=== PATIENT | male | born 1945 | race Caucasian/White ===

== ENCOUNTER → 2016-11-28 | Outpatient (CLI) | payer MEDICARE, BC | END | disposition home or self-care (01) | LOC: LABWHC1 10:48 | PROVIDERS: ATTEND Radiology Radiation Oncology | DX: C61 Malignant neoplasm of prostate (principal) | CPT/HCPCS: 36415; 84153 ==

== ENCOUNTER 2017-02-20 10:58 | Inpatient (IN) | payer MEDICARE, BC ==
[2017-02-20] MEDS ORDERED: ACETAMINOPHEN TAB 500 MG TAB PO STA (11:10)
[2017-02-20] MEDS ORDERED: IBUPROFEN IV 600 MG in SODIUM CHLORIDE 0.9% 250 ML IV STA (11:10)
[2017-02-20] MEDS ORDERED: IPRATROPIUM-ALBUTEROL 3 ML NEB INHALATION STA (11:11)
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
[2017-02-20] MEDS: LEVOFLOXACIN 750MG-D5W PMX 750 MG in DEXTROSE/WATER 1 150ML.BAG IVPB STA ×2 (11:20→12:16)
[2017-02-20] MEDS: SODIUM CHLORIDE 0.9% 500 ML IV SCH ×2 (11:21→11:31)
[2017-02-20 11:37] LABS: Basophils # (A) 0.1 k/uL (0-0.2); Basophils % (A) 1 %; CH 32.7; CHCM 33.2; Eosinophils # (A) 0.1 k/uL (0-0.7); Eosinophils % (A) 1 %; HCT 52.6 % (39.0-53.0); HDW 2.57; HGB 17.1 gm/dL (13.0-17.5); Luc # (Auto) 0.17; Luc % (Auto) 2; Lymphocytes # (A) 0.7 k/uL (1.0-4.8); Lymphocytes % (A) 10 %; MCH 32.3 pg (25.0-35.0); MCHC 32.6 g/dL (31.0-37.0); Mean Platelet Volume 7.1; Monocytes # (A) 0.4 k/uL (0-1.0); Monocytes % (A) 6 %; Neutrophils # (A) 5.7 k/uL (1.3-7.7); Neutrophils % (A) 81 %; RBC 5.31 m/uL (4.30-5.90); WBC (Perox) 6.45
[2017-02-20 11:51] LABS: ALT 27 U/L (21-72); AST 28 U/L (17-59); Alkaline Phosphatase 80 U/L (38-126); Anion Gap 12 mmol/L; Blood Urea Nitrogen 25 mg/dL (9-20); Calcium 9.2 mg/dL (8.4-10.2); Carbon Dioxide 30 mmol/L (22-30); Chloride 101 mmol/L (98-107); Glucose 104 mg/dL (74-99); Non-African American GFR(MDRD) >60 (>60 ml/min/1.73 sqM); Potassium 3.8 mmol/L (3.5-5.1); Sodium 143 mmol/L (137-145); Total Bilirubin 1.1 mg/dL (0.2-1.3); Total Protein 7.5 g/dL (6.3-8.2)
[2017-02-20 11:55] LABS: Creatine Kinase 101 U/L (55-170)
[2017-02-20 12:05] LABS: INR 1.1 (<1.1); Prothrombin Time 10.9 sec (9.0-12.0)
--- NOTE | 2017-02-20 12:05 | XR ---
EXAMINATION TYPE: XR chest 2V DATE OF EXAM: 02/20/2017 11:59 AM COMPARISON: 07/24/15 HISTORY: Shortness of breath TECHNIQUE: Frontal and lateral views of the chest are obtained. FINDINGS: Scattered senescent parenchymal changes noted. Hyperinflation compatible with COPD. Patchy density right lower lobe may reflect pneumonia. Correlate clinically. Heart size is stable. Mediastinal structures are stable and grossly unremarkable. No evidence for hilar prominence. Degenerative changes dorsal spine. IMPRESSION: 1. Patchy density right lower lobe may reflect pneumonia. Correlate clinically.
[2017-02-20 12:08] LABS: Creatine Kinase MB 1.8 ng/mL (0.0-2.4); Troponin I <0.012 ng/mL (0.000-0.034)
[2017-02-20] MEDS ORDERED: PNEUMONIA PROTOCOL UTILIZED 1 EACH MISC PO PRN (12:51)
[2017-02-20] MEDS: IPRATROPIUM-ALBUTEROL 3 ML NEB INHALATION PRN (15:48)
[2017-02-20] MEDS ORDERED: SODIUM CHLORIDE 0.65% NASAL SPRAY 44 ML BTL INTRANASAL PRN (15:53)
[2017-02-20] MEDS: INSULIN LISPRO (humaLOG) 300 UNIT/3 ML VIAL SQ SCH ×2 (17:19→22:12)
[2017-02-20 17:22] LABS: Appearance,Urine Clear (Clear); Bilirubin,Urine Negative (Negative); Glucose,Urine (UA) Negative (Negative); Ketones,Urine Trace (Negative); Leukocyte Esterase,Urine Negative (Negative); Nitrite,Urine Negative (Negative); PH, Urine 5.5 (5.0-8.0); Protein,Urine Negative (Negative); Specific Gravity,Urine 1.012 (1.001-1.035); UA Billing (MACRO vs. MICRO) CHEM; Urobilinogen,Urine <2.0 mg/dL (<2.0)
[2017-02-20] MEDS: ENOXAPARIN 40 MG/0.4 ML SYRINGE SQ SCH (17:51)
[2017-02-20] MEDS: methylPREDNISolone SOD SUCCI 40 MG/ML 1 ML VIAL IV SCH ×2 (17:53→23:08)
[2017-02-20] MEDS ORDERED: methylPREDNISolone SOD SUCCI 125 MG/2 ML VIAL IV SCH (18:00)
[2017-02-20 21:00] LABS: Glucose,Whole Blood 126 mg/dL (75-99)
[2017-02-20 21:01] LABS: Hemoglobin A1C 5.8 % (4.2-6.1)
[2017-02-20] MEDS: BUDESONIDE 1 MG/2 ML NEBU INHALATION SCH (21:48)
[2017-02-20] MEDS: IPRATROPIUM-ALBUTEROL 3 ML NEB INHALATION SCH ×2 (21:48→21:49)
[2017-02-20] MEDS: LORATADINE-PSEUDOEPH 5-120 MG 1 EACH TAB.ER.12H PO SCH (22:11)
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
[2017-02-20] MEDS: ALPRAZolam 0.25 MG TAB PO PRN (22:50)
[2017-02-21] MEDS: IPRATROPIUM-ALBUTEROL 3 ML NEB INHALATION SCH ×7 (02:06→23:27)
[2017-02-21] MEDS: BUDESONIDE 1 MG/2 ML NEBU INHALATION SCH ×2 (07:25→19:06)
[2017-02-21 07:29] LABS: Glucose,Whole Blood 124 mg/dL (75-99)
--- NOTE | 2017-02-21 08:13 | XR ---
EXAMINATION TYPE: XR chest 2V DATE OF EXAM: 02/21/2017 7:14 AM COMPARISON: 02/20/2017 HISTORY: 71-year-old male follow-up pneumonia TECHNIQUE: Frontal and lateral views FINDINGS: Heart is normal size. Elongation/ectasia of the thoracic aorta. Upper lung lucencies with hyperinflat ion and increased retrosternal clear space. There is some patchy posterior basilar opacity on the lat eral view with improving aeration at the right base on the frontal view. No pleural effusion. IMPRESSION: COPD with prominent emphysematous change. There is some persistent patchy atelectasis or mild infiltr ate at the posterior base on the lateral view. Improving aeration at the right base on the frontal vi ew.
[2017-02-21] MEDS: ENOXAPARIN 40 MG/0.4 ML SYRINGE SQ SCH (08:30)
[2017-02-21] MEDS: LORATADINE-PSEUDOEPH 5-120 MG 1 EACH TAB.ER.12H PO SCH ×2 (08:30→22:13)
[2017-02-21] MEDS: INSULIN LISPRO (humaLOG) 300 UNIT/3 ML VIAL SQ SCH ×4 (08:30→22:13)
[2017-02-21] MEDS: methylPREDNISolone SOD SUCCI 40 MG/ML 1 ML VIAL IV SCH (08:30)
[2017-02-21] MEDS: MONTELUKAST 10 MG TAB PO SCH (08:30)
[2017-02-21] MEDS: ALPRAZolam 0.25 MG TAB PO PRN ×2 (08:53→22:17)
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
[2017-02-21 11:28] LABS: Glucose,Whole Blood 105 mg/dL (75-99)
[2017-02-21] MEDS ORDERED: LEVOFLOXACIN 750MG-D5W PMX 750 MG in DEXTROSE/WATER 1 150ML.BAG IVPB SCH (12:00)
[2017-02-21] MEDS: methylPREDNISolone SOD SUCCI 125 MG/2 ML VIAL IV SCH ×3 (12:39→23:53)
[2017-02-21 17:13] LABS: Glucose,Whole Blood 139 mg/dL (75-99)
[2017-02-21] MEDS: FORMOTEROL FUMARATE 20 MCG/2 ML NEBU INHALATION SCH (19:06)
[2017-02-21 20:34] LABS: Glucose,Whole Blood 164 mg/dL (75-99)
--- NOTE | 2017-02-21 23:36 | PN ---
DATE OF SERVICE: 02/21/2017 PRESENTING COMPLAINT: Shortness of breath. INTERVAL HISTORY: This is a 71-year-old gentleman who had increasing shortness of breath over the previous 4 days, itchiness in the eyes, feeling hot and cold a cough positive for clearing yellow sputum, decreased appetite, tired, rundown, unable to breathe. Presented to primary care provider's office, where he was sent to be seen in the emergency department. Today patient feels much better, awake, alert, able to answer questions. No acute distress noted; however, some difficulty breathing with minimal activity was noted. Review of systems done for constitutional, cardiovascular, gastrointestinal, pulmonary, with relevant findings as above. CURRENT MEDICATIONS: 1. Albuterol. 2. Ipratropium. 3. Xanax. 4. Lovenox. 5. Humalog. 6. Solu-Medrol. 7. Requip. PHYSICAL EXAMINATION: VITAL SIGNS: Temperature 96.4, pulse 95, respiratory rate 18, blood pressure 138/89, oxygen saturation 92% on 2 L nasal cannula. EYES: Pupils equal. Conjunctivae normal. NECK: JVD not raised. Mass not palpable. LUNGS: Diminished bilaterally throughout. Fair airway clearance. Some expiratory wheezing noted. RESPIRATORY: Effort increased with minimal activity. CARDIOVASCULAR: S1, S2 normal. No edema noted. ABDOMEN: Soft, nontender. Liver and spleen not palpable. PSYCHIATRIC: Alert and oriented x3. Mood and affect are normal. INVESTIGATIONS: Chest x-ray dated 02/21/2017 has impression of COPD with prominent emphysematous changes; there is persistent patchy atelectasis or mild infiltrate at the posterior base on the lateral view; improving aeration at the right base on the frontal view. Pulmonology consultation recommends adding formoterol and increasing Solu-Medrol by 60 mg every 6 hours. ASSESSMENT: 1. Right middle lobe pneumonia; suspect Gram-negative organism, present on admission. 2. Acute chronic obstructive pulmonary disease exacerbation in an ex-smoker. 3. Obstructive sleep apnea; uses CPAP machine. 4. Prostate cancer in a [id number] process. 5. Ascending aortic aneurysm 4.2 cm. 6. Chronic restless leg syndrome. 7. Anxiety not otherwise specified. PLAN: Continue nebulized bronchodilators, steroids and antibiotics in the form of Levaquin. Pulmonology's recommendations noted and appropriate changes made to reflect their consultation. Plan of care was discussed with the patient.
[2017-02-22] MEDS: IPRATROPIUM-ALBUTEROL 3 ML NEB INHALATION SCH ×5 (03:42→19:27)
[2017-02-22] MEDS: methylPREDNISolone SOD SUCCI 125 MG/2 ML VIAL IV SCH ×3 (06:13→18:00)
[2017-02-22 07:24] LABS: Glucose,Whole Blood 134 mg/dL (75-99)
--- NOTE | 2017-02-22 07:29 | PN ---
DATE OF SERVICE: 02/21/2017 ATTENDING NOTE: This patient was seen and examined today. I reviewed the note of my nurse practitioner. Cas. I agree with the same except for any changes below. This is a patient admitted with COPD exacerbation, pneumonia. Breathing is getting a bit better. Patient has been up in the hallway, trying to walk, huffing and puffing with attempts to do that. Not moving air very well. Did tolerate some diet. Has oxygen on. On examination, respiratory rate increased. Short of breath at rest with accessory muscles are working. LUNGS: Diminished breath sounds with prolonged expiration, wheezing and poor air entry. ABDOMEN: Soft, nontender. PSYCH: Alert and oriented x3. INVESTIGATIONS: Accu-Cheks are noted. ASSESSMENT: 1. Right middle lobe pneumonia, suspect gram-negative organism. 2. Acute severe chronic obstructive pulmonary disease exacerbation in an ex-smoker, slow to respond. PLAN: Continue medication and treatment plan, antibiotics, nebulized bronchial steroids. Told patient to take it easy. Continue with the same. Patient remains on Solu-Medrol.
[2017-02-22] MEDS: ALPRAZolam 0.25 MG TAB PO PRN ×2 (08:24→21:52)
[2017-02-22] MEDS: ENOXAPARIN 40 MG/0.4 ML SYRINGE SQ SCH (08:24)
[2017-02-22] MEDS: INSULIN LISPRO (humaLOG) 300 UNIT/3 ML VIAL SQ SCH ×4 (08:24→21:52)
[2017-02-22] MEDS: LORATADINE-PSEUDOEPH 5-120 MG 1 EACH TAB.ER.12H PO SCH ×2 (08:24→21:52)
[2017-02-22] MEDS: MONTELUKAST 10 MG TAB PO SCH (08:24)
[2017-02-22] MEDS: FORMOTEROL FUMARATE 20 MCG/2 ML NEBU INHALATION SCH ×2 (08:31→19:24)
[2017-02-22] MEDS: BUDESONIDE 1 MG/2 ML NEBU INHALATION SCH ×2 (08:31→19:24)
[2017-02-22 12:02] LABS: Glucose,Whole Blood 141 mg/dL (75-99)
[2017-02-22] MEDS: LEVOFLOXACIN 750 MG TAB PO SCH (13:52)
--- NOTE | 2017-02-22 13:56 | P.PN ---
Subjective Principal diagnosis: Acute exacerbation of chronic obstructive pulmonary disease This is a very pleasant 71-year-old gentleman who follows with Dr. Webb in our office for severe, oxygen dependent chronic obstructive pulmonary disease. He was admitted again for an acute exacerbation of the same. He is seen today 02/22/2017 in follow-up on the regular medical floor. He is awake and alert in no acute distress. He is improved today as compared to yesterday but not quite back to his baseline. Objective - Vital Signs Vital signs: Vital Signs Temp 97.8 F 02/22/17 07:00 Pulse 96 02/22/17 12:34 Resp 18 02/22/17 07:00 BP 134/85 02/22/17 07:00 Pulse Ox 90 L 02/22/17 07:00 Intake & Output 02/21/17 02/22/17 02/22/17 18:59 06:59 18:59 Other: # Voids 2 2 - Exam GENERAL EXAM: Alert, active, comfortable in no apparent distress. HEAD: Normocephalic. EYES: Normal reaction of pupils, equal size. NOSE: Clear with pink turbinates. THROAT: No erythema or exudates. NECK: No masses, no JVD. CHEST: No chest wall deformity. LUNGS: Equal air entry with no crackles, wheeze, rhonchi or dullness. CVS: S1 and S2 normal with no audible murmurs, regular rhythm. ABDOMEN: No hepatosplenomegaly, normal bowel sounds, no guarding or rigidity. SPINE: No scoliosis or deformity SKIN: No rashes CENTRAL NERVOUS SYSTEM: No focal deficits, tone is normal in all 4 extremities. Extremities. There is no peripheral edema. No clubbing, no cyanosis. Peripheral pulses are intact. - Labs CBC & Chem 7: 02/20/17 11:09 02/20/17 11:09 Labs: Abnormal Lab Results - Last 24 Hours (Table) 02/21/17 02/21/17 02/22/17 Range/Units 17:06 20:32 07:22 POC Glucose (mg/dL) 139 H 164 H 134 H (75-99) mg/dL 02/22/17 Range/Units 12:00 POC Glucose (mg/dL) 141 H (75-99) mg/dL Microbiology - Last 24 Hours (Table) 02/20/17 17:05 Urine Culture - Final Urine,Voided 02/20/17 14:56 Blood Culture - Preliminary Blood No Growth after 24 hours Assessment and Plan Plan: Impression: #1 Acute exacerbation of severe, oxygen dependent chronic obstructive pulmonary disease. #2 Acute on chronic hypoxic respiratory failure secondary to above. #3 Obstructive sleep apnea. #4 History of prostate cancer. #5 History of ascending aortic aneurysm. Plan: The patient was seen and evaluated by Dr. Frost. The patient is still not quite back to his baseline but improved. We'll continue with his current medications. We'll increase his activity as tolerated. We'll continue to follow.
--- NOTE | 2017-02-22 16:53 | PN ---
This is a 71-year-old patient who sees Dr. Webb in the office. He came in with COPD exacerbation complicated by purulent tracheobronchitis and possible bronchopneumonia. The chest x-ray really was not impressive but may have showed an infiltrate posteriorly only on the lateral film. He is feeling a bit better. Less short of breath. Less cough. He is producing some phlegm. No fever. No chills. No chest pain. No nausea, vomiting or diarrhea. The patient is improved. He is wearing oxygen today. He has a history of prostate cancer, sleep apnea and a history of aortic aneurysm. Current vital signs include temperature 97.8, heart rate 88, respiratory rate 18, blood pressure 134/85, mean 101, 3-liter saturation 93%. Appears in no acute distress. HEENT examination is grossly unremarkable. Mucous membranes are moist. No oral lesions. Neck is supple; full range of motion. No adenopathy or thyromegaly. Neck veins are flat. Cardiovascular examination reveals regular rhythm and rate. S1, S2 normal. No S3, S4 or murmur. Lungs reveal coarse rhonchi. Breath sounds are diminished. There is prolongation. His adventitious lung sounds are more pronounced on forced maneuver. ABDOMEN: Soft. Bowel sounds are heard. Extremities are intact. No cyanosis, clubbing or edema. Skin is without rash or lesion. Neurological examination is nonfocal. No new laboratory data to report. X-rays reviewed. Medications were adjusted. ASSESSMENT: 1. Chronic obstructive pulmonary disease exacerbation complicated by purulent tracheobronchitis/bronchopneumonia, although the x-ray is not very impressive. 2. Bibasilar atelectatic changes. 3. Prostate cancer. 4. History of sleep apnea. 5. Aortic aneurysm. PLAN: The patient's medications were adjusted yesterday. We bumped up the steroids to be 60 mg q.6 hours. He is also on Pulmicort 1 mg and formoterol twice a day. Also on albuterol and Atrovent updrafts q.i.d. and p.r.n. as well as Singulair. Will continue to follow. Prognosis is guarded.
[2017-02-22 17:00] LABS: Glucose,Whole Blood 129 mg/dL (75-99)
[2017-02-22 21:28] LABS: Glucose,Whole Blood 137 mg/dL (75-99)
--- NOTE | 2017-02-22 21:49 | PN ---
DATE OF SERVICE: 02/22/2017 PRESENTING COMPLAINT: Shortness of breath. INTERVAL HISTORY: This is a 71-year-old gentleman who had increasing shortness of breath over the previous 4 days, itchiness in his eyes, feeling of hot and cold, and a cough positive for clearing yellow sputum. Patient went to see his primary care provider and was sent directly to the emergency department. Today patient feels somewhat better; still feels it is difficult for him to breathe; "feels tight." No acute distress noted or voiced; however, on minimal exertion patient does have significant shortness of breath. Review of systems done for constitutional, cardiovascular, gastrointestinal, pulmonary, with relevant findings as above. CURRENT MEDICATIONS: 1. Albuterol. 2. Ipratropium. 3. Xanax. 4. Lovenox. 5. Humalog. 6. Solu-Medrol. 7. Requip. PHYSICAL EXAMINATION: VITAL SIGNS: Temperature 97.8, pulse 108, blood pressure 133/89, oxygen saturation 90% on 3 L nasal cannula. GENERAL APPEARANCE: Patient sitting on the bed. Looks very red in the face ( ) on the chest but is calm and looks comfortable wearing his oxygen. No acute distress noted or voiced. EYES: Pupils equal. Conjunctivae normal. NECK: JVD not raised. Mass not palpable. LUNGS: Very tight expiratory wheezing noted. Scattered crackles throughout. RESPIRATORY: Moderate effort. Mildly labored. CARDIOVASCULAR: S1, S2 normal. Trace edema noted to lower extremities. ABDOMEN: Soft, nontender. Liver and spleen not palpable. PSYCHIATRIC: Alert and oriented x3. Mood and affect normal. INVESTIGATIONS: Blood glucose 129. Blood cultures drawn on 02/20/2017 negative for any growth after 48 hours. ASSESSMENT: 1. Right middle lobe pneumonia; suspect Gram-negative organism, present on admission. 2. Acute chronic obstructive pulmonary disease exacerbation in an ex-smoker. 3. Obstructive sleep apnea. He uses CPAP machine. 4. Prostate cancer in a [id number] process. 5. Ascending aortic aneurysm 4.2 cm. 6. Chronic restless leg syndrome. 7. Anxiety not otherwise specified. PLAN: Continue with nebulized bronchodilators, steroids and antibiotics in the form of Levaquin. Pulmonology on consult; appreciate recommendations. Plan of care was discussed with the patient. Patient was seen and examined by nurse practitioner Joann Gressle and all elements of the case were discussed with the attending, Dr. Mc.
[2017-02-22] MEDS: ALBUTEROL NEB (CONC) 2.5 MG/0.5 ML INHALATION SCH (23:32)
[2017-02-22] MEDS: IPRATROPIUM 0.5 MG/2.5 ML NEBU INHALATION SCH (23:32)
[2017-02-23] MEDS ORDERED: ALBUTEROL NEBULIZED 2.5 MG/3 ML INHALATION SCH
[2017-02-23] MEDS: THEOPHYLLINE 24 HOUR 300 MG CAP.ER.24H PO SCH ×2 (00:39→08:31)
[2017-02-23] MEDS: methylPREDNISolone SOD SUCCI 125 MG/2 ML VIAL IV SCH ×3 (00:39→11:56)
[2017-02-23] MEDS: ALBUTEROL NEB (CONC) 2.5 MG/0.5 ML INHALATION SCH ×5 (03:29→19:09)
[2017-02-23] MEDS: IPRATROPIUM 0.5 MG/2.5 ML NEBU INHALATION SCH ×5 (03:29→19:09)
[2017-02-23] MEDS: FORMOTEROL FUMARATE 20 MCG/2 ML NEBU INHALATION SCH ×2 (07:17→19:09)
[2017-02-23] MEDS: BUDESONIDE 1 MG/2 ML NEBU INHALATION SCH ×2 (07:17→19:09)
[2017-02-23 07:32] LABS: Glucose,Whole Blood 130 mg/dL (75-99)
[2017-02-23] MEDS: ENOXAPARIN 40 MG/0.4 ML SYRINGE SQ SCH (08:31)
[2017-02-23] MEDS: INSULIN LISPRO (humaLOG) 300 UNIT/3 ML VIAL SQ SCH ×4 (08:32→21:38)
[2017-02-23] MEDS: MONTELUKAST 10 MG TAB PO SCH (08:32)
--- NOTE | 2017-02-23 08:41 | PN ---
DATE OF SERVICE: 02/22/2017 Attending note: This patient was seen and examined by me earlier today. Patient presents with pneumonia and acute severe chronic obstructive pulmonary disease exacerbation. Still quite a bit short of breath including that at rest and was bringing up some sputum. The patient able to get to the bathroom though. Current medications are reviewed that include nebulized bronchodilators, steroids. On examination, temperature 97.8, pulse 108, respirations 16, blood pressure 189, pulse ox 98% on 3 L. GENERAL APPEARANCE: Sitting up, short of breath at rest. NECK: JVD not raised. Mass not palpable. RESPIRATORY: Effort increased. LUNGS: Diminished breath sounds. Prolonged expiration and wheezing. CARDIOVASCULAR: First and second sounds normal. EXTREMITIES: Muscles are working at rest. INVESTIGATIONS: Accu-Cheks are noted. ASSESSMENT: 1. Right middle lobe pneumonia, suspect gram-negative organism, present on admission, slow to respond. 2. Acute severe chronic obstructive pulmonary disease exacerbation in an ex-smoker, slow to respond. 3. Obstructive sleep apnea, uses CPAP machine. PLAN: Care was discussed with the patient. We will increase patient's albuterol to 5 mg q.4. We will also add theophylline. We will stop patient's Claritin-D and assess to minimize her tachycardia. Telemetry to be monitored. Did discuss with the patient. Follow.
[2017-02-23] MEDS: ALPRAZolam 0.25 MG TAB PO PRN ×2 (08:43→21:32)
[2017-02-23 08:46] LABS: CHCM 33.8; HCT 50.7 % (39.0-53.0); HDW 2.73; MCH 32.8 pg (25.0-35.0); MCHC 33.4 g/dL (31.0-37.0); MCV 98.2 fL (80.0-100.0); Mean Platelet Volume 6.9; RBC 5.17 m/uL (4.30-5.90); RDW 14.1 % (11.5-15.5); WBC 17.6 k/uL (3.8-10.6)
[2017-02-23 08:58] LABS: Anion Gap 12 mmol/L; Blood Urea Nitrogen 22 mg/dL (9-20); Carbon Dioxide 23 mmol/L (22-30); Chloride 104 mmol/L (98-107); Glucose 148 mg/dL (74-99); Non-African American GFR(MDRD) >60 (>60 ml/min/1.73 sqM); Potassium 4.4 mmol/L (3.5-5.1); Sodium 139 mmol/L (137-145)
[2017-02-23] MEDS: LEVOFLOXACIN 750 MG TAB PO SCH (11:56)
[2017-02-23 12:17] LABS: Glucose,Whole Blood 130 mg/dL (75-99)
--- NOTE | 2017-02-23 14:19 | PN ---
DATE OF SERVICE: 02/23/2017 PRESENTING COMPLAINT: Shortness of breath. INTERVAL HISTORY: This is a 71-year-old gentleman who has increasing shortness of breath over the previous 4 days, itchiness in his eye, feeling of hot and cold, positive cough for clearing yellow sputum. Today patient still maintains his breathing feels "better, but still tight". Patient able to cough up a little bit more yellow clear sputum. No acute distress noted and patient does continue to have significant shortness of breath on minimal exertion. Review of systems done for constitutional, cardiovascular, gastrointestinal, pulmonary with relevant findings as above. CURRENT MEDICATIONS: Albuterol, ipratropium, Xanax, Lovenox, Humalog, Solu-Medrol, Requip, theophylline. PHYSICAL EXAMINATION: VITAL SIGNS: Temperature 97.4 pulse 104, respirations 20, blood pressure 120/80, oxygen saturation 95% on 3 liters nasal cannula. GENERAL APPEARANCE: Patient sitting up in bed, awake, alert, no acute distress noted or voiced. EYES: Pupils equal. Conjunctivae normal. NECK: JVD not raised. Mass not palpable. LUNGS: Expiratory wheezing noted bilaterally, scattered rhonchi throughout. Respiratory effort normal. CARDIOVASCULAR: S1, S2 normal. No edema noted. ABDOMEN: Soft, nontender. Liver and spleen not palpable. PSYCHIATRIC: Alert and oriented x3. Mood and affect normal. INVESTIGATIONS: White blood cell count 17.6, hemoglobin 17.0, sodium 139, potassium 4.4, glucose 148. ASSESSMENT: 1. Right middle lobe pneumonia, suspect gram-negative organism, present on admission slow to respond. 2. Acute severe chronic obstructive pulmonary disease exacerbation in an ex-smoker, slow to respond. 3. Obstructive sleep apnea, uses CPAP machine. 4. Prostate cancer in a wait and watch process. 5. Ascending aortic aneurysm 4.2 cm. 6. Chronic restless leg syndrome. 7. Anxiety, not otherwise specified. PLAN: Care plan was discussed with the patient. Albuterol increased to 5 mg q.4 hours. We will add theophylline as well. Continue telemetry monitoring. Patient was seen and examined by nurse practitioner, Joann Cardozo, and all elements of the case discussed with attending, Dr. Mc.
--- NOTE | 2017-02-23 15:35 | PN ---
71-year-old patient who sees Dr. Webb in the office for COPD. He came in with chronic obstructive pulmonary disease exacerbation complicated by purulent tracheobronchitis possible basilar pneumonia, which was really not very impressive and only seen on the lateral. Anyway, the patient is improving. Less short of breath. Less chest congestion. He is coughing up some phlegm. Phlegm is yellow and green. Apparently the patient was placed on clinical research monitor. I do not know why. He also apparently has a drug sheet in front of him describing the drug theophylline. That may not be the best drug since the patient does suffer from chest fluttering and palpitations. I am not sure who prescribed it. Anyway, again, as I mentioned, the patient is slightly improved. Currently his vital signs include a temperature 97.4, heart rate 107, respiratory rate 20, blood pressure 120/80, mean 93, 3 liters saturation 96%. Appears in no acute distress. No respiratory distress. HEENT examination is grossly unremarkable. Mucous membranes are moist. No oral lesions. Neck is supple. Full range of motion. No adenopathy or thyromegaly. Neck veins are flat. Cardiovascular examination reveals tachycardia. It is regular. A few extra systoles. A few premature beats. No murmur. S1, S2 normal. Heart rate about 107 to 110. Lungs reveal coarse inspiratory and expiratory rhonchi and wheezes. Breath sounds are diminished. There is a slight prolongation. Abdomen is soft. Bowel sounds are heard. No mass or tenderness. Extremities reveal no cyanosis, clubbing or edema. Skin is without rash. Neurological examination is brief but nonfocal. Lab data is reviewed. White count 17.6 hemoglobin and hematocrit, and platelet count all normal. Sodium, potassium and chloride, and CO2 all normal. BUN and creatinine 22 and 0.91. No recent x-rays to report. The x-ray on ninth shows evidence of changes of COPD. There is persistent patchy atelectasis or infiltrate at the posterior base on the lateral view only. Medications are reviewed. Microbiology is all negative. ASSESSMENT: 1. Chronic obstructive pulmonary disease exacerbation complicated by likely purulent tracheobronchitis rather than bronchopneumonia. 2. Bibasilar atelectatic changes. 3. Prostate cancer. 4. History of sleep apnea syndrome. 5. Aortic aneurysm. PLAN: The patient is doing well. Hopefully discharge in the morning. No additional recommendations are made. Prognosis is guarded though. He will have follow up with Dr. Webb in the near future.
[2017-02-23 17:01] LABS: Glucose,Whole Blood 122 mg/dL (75-99)
--- NOTE | 2017-02-23 19:15 | PN ---
DATE OF SERVICE: 02/23/2017 ATTENDING NOTE: This patient was seen and examined by me. I have reviewed the note of my nurse practitioner Ms. Cardozo. Any additional changes are as below. This patient was admitted with severe COPD exacerbation and pneumonia. Patient's dose of Ventolin was increased last evening. I also added theophylline. Patient feels a bit better; did bring up a blob of sputum, though still short of breath. Current medications include theophylline 300 mg daily, nebulizers q.4 and IV Solu-Medrol. On examination, temperature 97.4, pulse 107, respiration 20, blood pressure 120/80. Patient is short of breath at rest. LUNGS: Decreased breath sounds. Prolonged expiration and expiratory wheezing. PSYCH: Alert and oriented x3. Accu-Cheks are noted. ASSESSMENT: 1. Right middle lobe pneumonia; suspect Gram-negative organism, present on admission. 2. Acute severe chronic obstructive pulmonary disease exacerbation in an ex-smoker, slow to respond. PLAN: Continue with IV Solu-Medrol; will decrease the dose to 40 q.8. Continue with q.4 nebulizers and theophylline. Expect the patient to be in the hospital for at least 24 hours. Discussed with the patient.
[2017-02-23 21:21] LABS: Glucose,Whole Blood 116 mg/dL (75-99)
[2017-02-23] MEDS: methylPREDNISolone SOD SUCCI 40 MG/ML 1 ML VIAL IV SCH (23:43)
[2017-02-24] MEDS: ALBUTEROL NEB (CONC) 2.5 MG/0.5 ML INHALATION SCH ×7 (00:09→23:16)
[2017-02-24] MEDS: IPRATROPIUM 0.5 MG/2.5 ML NEBU INHALATION SCH ×7 (00:10→23:16)
[2017-02-24] MEDS: BUDESONIDE 1 MG/2 ML NEBU INHALATION SCH ×2 (07:13→20:08)
[2017-02-24] MEDS: FORMOTEROL FUMARATE 20 MCG/2 ML NEBU INHALATION SCH ×2 (07:13→20:08)
[2017-02-24 07:34] LABS: Glucose,Whole Blood 131 mg/dL (75-99)
[2017-02-24] MEDS: ALPRAZolam 0.25 MG TAB PO PRN ×2 (08:56→21:52)
[2017-02-24] MEDS: INSULIN LISPRO (humaLOG) 300 UNIT/3 ML VIAL SQ SCH ×4 (08:56→21:11)
[2017-02-24] MEDS: methylPREDNISolone SOD SUCCI 40 MG/ML 1 ML VIAL IV SCH ×3 (08:56→23:34)
[2017-02-24] MEDS: ENOXAPARIN 40 MG/0.4 ML SYRINGE SQ SCH (08:57)
[2017-02-24] MEDS: THEOPHYLLINE 24 HOUR 300 MG CAP.ER.24H PO SCH (08:57)
[2017-02-24] MEDS: MONTELUKAST 10 MG TAB PO SCH (08:57)
--- NOTE | 2017-02-24 10:44 | PN ---
This is a 71-year-old patient who sees Dr. Webb in our office. Has a history of COPD. Was admitted with COPD exacerbation and possible mild purulent tracheobronchitis versus very mild basilar pneumonia. His overall situation has improved. Feeling less short of breath. It appears that Mr. Guzman really like to stay in the hospital and is not hoping to be discharged any time soon. He seems only to be getting mildly better day by day but his lung sounds are much improved in my opinion. Anyway, the patient does have significant COPD. He has improved since he has been here. He does appear to be less symptomatic. Current vital signs include a temperature which is 96.8, a heart rate which is 88, respiratory rate which is 20, blood pressure 116/77, mean 90, and the 3 L saturation 92%. Appears in no acute distress. No respiratory distress. No audible wheezing. HEENT examination is grossly unremarkable. Mucous membranes are moist. No oral lesions. NECK: Supple. Full range of motion. No adenopathy or thyromegaly. Neck veins are flat. Cardiovascular examination reveals regular rhythm and rate. S1, S2 normal. No S3, S4 or murmur. Lungs reveal a few scattered mild rhonchi. Breath sounds are diminished. No crackles. ABDOMEN: Soft. Bowel sounds are heard. No masses. Extremities are intact. No cyanosis, clubbing or edema. Labs are reviewed. Nothing new to report. Labs from yesterday look pretty good. No new x-rays to report. Microbiology including urine and blood are all negative. From the pulmonary standpoint, he is on Solu-Medrol, theophylline, Singulair, DuoNeb, Levaquin, Pulmicort and Perforomist. ASSESSMENT: 1. Chronic obstructive pulmonary disease exacerbation complicated by primarily purulent tracheobronchitis and doubt significant bronchopneumonia. 2. Basilar atelectatic changes. 3. Prostate cancer. 4. History of sleep apnea syndrome. 5. Aortic aneurysm. PLAN: In my opinion, the patient could be discharged home. No additional recommendations are made. Will continue to follow. Prognosis is guarded.
[2017-02-24] MEDS: LEVOFLOXACIN 750 MG TAB PO SCH (12:19)
[2017-02-24 12:33] LABS: Glucose,Whole Blood 116 mg/dL (75-99)
--- NOTE | 2017-02-24 14:03 | PN ---
DATE OF SERVICE: 02/24/2017 PRESENTING COMPLAINT: Shortness of breath. INTERVAL HISTORY: This is a 71-year-old gentleman who has increasing shortness of breath over the past 4 days, found to have a severe COPD exacerbation and pneumonia. Patient states he feels mildly better today, did bring up several blobs of sputum although continues to be short of breath. No acute distress noted or voiced. However, patient does have significant shortness of breath on minimal exertion. Review of systems done for constitutional, cardiovascular, gastrointestinal, pulmonary, with relevant findings as above. CURRENT MEDICATIONS: Albuterol, ipratropium, Xanax, Lovenox, Humalog, Solu-Medrol, Requip, theophylline. PHYSICAL EXAM: VITAL SIGNS: Temperature 96.8, pulse 92, respiratory rate 20, blood pressure 116/77, oxygen saturation 92% on 3 L. GENERAL APPEARANCE: Patient is sitting on the bedside, getting ready to take a walk with his oxygen tank, in good spirits. Took a moment to show me the blob of sputum he spit up, which was yellow in color. EYES: Pupils equal. Conjunctivae are normal. NECK: JVD not raised. Mass not palpable. LUNGS: Expiratory wheezing noted bilaterally, scattered rhonchi throughout. Respiratory effort normal. CARDIOVASCULAR: S1, S2 normal. No edema noted. ABDOMEN: Soft, nontender. Liver and spleen not palpable. PSYCHIATRIC: Alert and oriented x3. Mood and affect are normal. INVESTIGATIONS: Blood glucose monitoring 131. ASSESSMENT: 1. Right middle lobe pneumonia, suspect gram-negative organism, present on admission, slow to respond. 2. Acute severe chronic obstructive pulmonary disease exacerbation in an ex-smoker, slow to respond. 3. Obstructive sleep apnea, uses CPAP machine. 4. Prostate cancer, a wait and watch process. 5. Ascending aortic aneurysm 4.2 cm. 6. Chronic restless leg syndrome. 7. Anxiety, not otherwise specified. PLAN: Continue with IV Solu-Medrol, will decrease the dose to 40 mg every 8 hours. Continue with q.4 hour nebulizers and theophylline. Patient expected to be in the hospital through at least today 02/24/2017. Patient aware of current plan. Patient seen and examined by nurse practitioner, Joann Cardozo and all elements of the case were discussed with attending, Dr. Mc.
[2017-02-24] MEDS ORDERED: LORATADINE 10 MG TAB PO PRN (15:41)
[2017-02-24 17:12] LABS: Glucose,Whole Blood 99 mg/dL (75-99)
--- NOTE | 2017-02-24 21:01 | PN ---
DATE OF SERVICE: 02/24/2017 ATTENDING NOTE: This patient was seen and examined by me today. I reviewed the note of my nurse practitioner, Ms. Cardozo, and discussed it with her. Patient admitted with COPD exacerbation. He states he feels somewhat better. Still short of breath. Does cough up some sputum. Has been up to the bathroom. Still on oxygen. On examination, lungs have decreased breath sounds, prolonged expiration and wheezing. CARDIOVASCULAR: First and second sounds normal. PSYCH: Patient is anxious. Accu-Cheks are noted. ASSESSMENT: 1. Acute severe chronic obstructive pulmonary disease exacerbation in an ex-smoker, slow to respond. 2. Right lower lobe pneumonia; suspect Gram-negative organism, present on admission. PLAN: Discussed with the patient. Will keep the patient on high dose of nebulized bronchodilators and steroids. I expect the patient to be in the hospital for at least 1 or 2 more days. Patient is aware of the same. Will follow.
[2017-02-24 21:43] LABS: Glucose,Whole Blood 129 mg/dL (75-99)
[2017-02-25] MEDS: ALBUTEROL NEB (CONC) 2.5 MG/0.5 ML INHALATION SCH ×5 (05:13→19:10)
[2017-02-25] MEDS: IPRATROPIUM 0.5 MG/2.5 ML NEBU INHALATION SCH ×5 (05:13→19:10)
[2017-02-25 07:19] LABS: Glucose,Whole Blood 118 mg/dL (75-99)
[2017-02-25] MEDS: INSULIN LISPRO (humaLOG) 300 UNIT/3 ML VIAL SQ SCH ×3 (07:23→16:31)
[2017-02-25] MEDS: methylPREDNISolone SOD SUCCI 40 MG/ML 1 ML VIAL IV SCH ×2 (08:06→15:18)
[2017-02-25] MEDS: THEOPHYLLINE 24 HOUR 300 MG CAP.ER.24H PO SCH (08:07)
[2017-02-25] MEDS: ENOXAPARIN 40 MG/0.4 ML SYRINGE SQ SCH (08:07)
[2017-02-25] MEDS: MONTELUKAST 10 MG TAB PO SCH (08:07)
[2017-02-25] MEDS: FORMOTEROL FUMARATE 20 MCG/2 ML NEBU INHALATION SCH ×2 (08:10→19:10)
[2017-02-25] MEDS: BUDESONIDE 1 MG/2 ML NEBU INHALATION SCH ×2 (08:10→19:10)
[2017-02-25] MEDS: ALPRAZolam 0.25 MG TAB PO PRN (08:11)
[2017-02-25] MEDS ORDERED: OXYMETAZOLINE 0.05% NASL SPRAY 15 ML ONE (10:33)
--- NOTE | 2017-02-25 11:12 | XR ---
EXAMINATION TYPE: XR chest 2V DATE OF EXAM: 02/25/2017 11:01 AM COMPARISON: 02/21/2017 HISTORY: Shortness of breath TECHNIQUE: Frontal and lateral views of the chest are obtained. FINDINGS: Scattered senescent parenchymal changes noted. Hyperinflation compatible with COPD. Stable density posteriorly on the lateral projection may be chronic in nature. Underlying infiltrate is felt to exclude. Heart size is stable. Mediastinal structures are stable and grossly unremarkable. No evidence for hilar prominence. Degenerative changes dorsal spine. IMPRESSION: 1. Stable density posteriorly on the lateral projection may be chronic in nature. Underlying infiltra te is felt to exclude.
[2017-02-25 12:07] LABS: Glucose,Whole Blood 171 mg/dL (75-99)
[2017-02-25] MEDS: LEVOFLOXACIN 750 MG TAB PO SCH (12:42)
[2017-02-25 16:29] LABS: Glucose,Whole Blood 118 mg/dL (75-99)
--- NOTE | 2017-02-25 16:58 | PN ---
71-year-old patient sees Dr. Webb in our office. He has a history of underlying COPD. The patient is doing much better. In my opinion he could be discharged. For some reason, the patient does not really want go home. Anyway his breathing has improved. He is coughing, producing a small amount of phlegm. Much improved chest congestion. Much less shortness of breath. The patient is resting comfortably, lying flat in bed. When I first entered the room, he is actually sleeping. Showing no signs of distress or difficulty. CURRENT VITAL SIGNS: Temperature 97.3, heart rate is 92, respiratory rate 18, blood pressure 135/81, mean 99, at 3 liters saturation is 92%. Appears in no acute distress. No respiratory distress. No audible wheezing. HEENT examination is grossly unremarkable. Mucous membranes are moist. No oral lesions. Neck is supple. Full range of motion. No adenopathy, thyromegaly or neck vein distention. Cardiovascular examination reveals regular rhythm and rate. Heart rate 92. S1, S2 normal. No S3, S4 or murmur. Lungs reveal diminished breath sounds throughout. A few scattered mild rhonchi. No wheezes or crackles. Breath sounds have improved. ABDOMEN: Soft. Bowel sounds are heard. EXTREMITIES: Intact. No cyanosis, clubbing or edema. Skin is without rash. Labs are reviewed. Nothing new to report. No new x-rays to report. Medications are reviewed. ASSESSMENT: 1. Chronic obstructive pulmonary disease exacerbation complicated by purulent tracheobronchitis. Doubt significant pneumonia. Has a minimal infiltrate or atelectasis that was only seen on the lateral projection of the x-ray. 2. Basilar atelectatic changes. 3. Prostate cancer. 4. History of sleep apnea syndrome. 5. Aortic aneurysm. PLAN: The patient is doing well. Medications are appropriate. He will be discharged home on a prednisone burst and taper and a short course of antibiotics. The rest of his medications should include a short acting beta agonist, short-acting muscarinic antagonist, long-acting beta agonist and inhaled corticosteroids. Follow up with Dr. Webb in a week or so.
[2017-02-25] MEDS ORDERED: ALPRAZolam 0.25 MG TAB ONE (21:50)
[2017-02-25 23:06] LABS: Glucose,Whole Blood 123 mg/dL (75-99)
[2017-02-26] MEDS ORDERED: methylPREDNISolone SOD SUCCI 40 MG/ML 1 ML VIAL ONE (00:24)
[2017-02-26] MEDS: ALBUTEROL NEB (CONC) 2.5 MG/0.5 ML INHALATION SCH ×6 (03:09→19:16)
[2017-02-26] MEDS: IPRATROPIUM-ALBUTEROL 3 ML NEB INHALATION PRN (03:09)
[2017-02-26] MEDS: IPRATROPIUM 0.5 MG/2.5 ML NEBU INHALATION SCH ×6 (03:10→19:16)
[2017-02-26] MEDS: ALPRAZolam 0.25 MG TAB PO PRN ×2 (06:45→20:56)
[2017-02-26 07:18] LABS: Anion Gap 8 mmol/L; Blood Urea Nitrogen 25 mg/dL (9-20); Calcium 9.5 mg/dL (8.4-10.2); Carbon Dioxide 29 mmol/L (22-30); Chloride 101 mmol/L (98-107); Glucose 134 mg/dL (74-99); Non-African American GFR(MDRD) >60 (>60 ml/min/1.73 sqM); Potassium 4.8 mmol/L (3.5-5.1); Sodium 138 mmol/L (137-145)
[2017-02-26 07:21] LABS: CH 32.7; CHCM 33.8; HCT 47.4 % (39.0-53.0); HDW 2.68; HGB 15.6 gm/dL (13.0-17.5); MCHC 32.9 g/dL (31.0-37.0); MCV 97.2 fL (80.0-100.0); Mean Platelet Volume 7.3; RBC 4.87 m/uL (4.30-5.90); RDW 13.8 % (11.5-15.5); WBC 12.4 k/uL (3.8-10.6)
--- NOTE | 2017-02-26 07:30 | PN ---
DATE OF SERVICE: 02/25/2017 PRESENTING COMPLAINT: Shortness of breath. INTERVAL HISTORY: This is a 71-year-old gentleman who has increasing shortness of breath over the past 4 days found to have severe COPD exacerbation and pneumonia. Patient states he feels mildly better today. Did bring up multiple blobs of sputum although continues to be short of breath. No acute distress noted or voiced. However, patient does have significant shortness of breath on minimal exertion. Review of systems done for constitutional, cardiovascular, gastrointestinal, pulmonary with relevant findings as above. CURRENT MEDICATIONS: Albuterol, ipratropium, Xanax, Lovenox, Humalog, Solu-Medrol, Requip, theophylline. PHYSICAL EXAMINATION: VITAL SIGNS: Temperature 97.3, pulse 92, respiratory rate 18, blood pressure 135/81, oxygen saturation 90% on 3 liters nasal cannula. GENERAL APPEARANCE: Patient lying in bed. No acute distress noted or voiced. Does complain sinus congestion. Patient also states he is coughing up quite a bit of sputum today. EYES: Pupils equal. Conjunctivae normal. NECK: JVD not raised. Mass not palpable. LUNGS: Coarse throughout bilateral lung calixto. Respiratory effort normal, unlabored. CARDIOVASCULAR: First and second sounds normal. No edema noted. ABDOMEN: Soft, nontender. Liver and spleen not palpable. PSYCHIATRY: Alert and oriented x3. Mood and affect are normal. INVESTIGATIONS: Blood glucose 171. Chest x-ray stable density posteriorly on the lateral projection may be chronic in nature. Underlying infiltrate is felt to exclude. ASSESSMENT: 1. Right middle lobe pneumonia suspect gram-negative organism, present on admission slow to respond. 2. Acute severe chronic obstructive pulmonary disease exacerbation in an ex-smoker, slow to respond. 3. Obstructive sleep apnea, uses CPAP machine. 4. Prostate cancer, wait and watch process. 5. Ascending aortic aneurysm 4.2 cm. 6. Chronic restless leg syndrome. 7. Anxiety, not otherwise specified. PLAN: Discussed plan of care with the patient. Will keep the patient on high dose nebulized bronchodilators and steroids. Expect patient to remain in the hospital at least for 1 to 2 more days. Patient is aware of the same. Patient was seen and examined by nurse practitioner, Joann Cardozo and all elements of the case were discussed with attending, Dr. Mc.
[2017-02-26] MEDS: OXYMETAZOLINE 0.05% NASL SPRAY 15 ML NASAL SCH ×3 (07:33→20:57)
[2017-02-26] MEDS: INSULIN LISPRO (humaLOG) 300 UNIT/3 ML VIAL SQ SCH ×5 (07:33→21:43)
[2017-02-26] MEDS: methylPREDNISolone SOD SUCCI 40 MG/ML 1 ML VIAL IV SCH ×3 (07:33→16:04)
[2017-02-26 07:35] LABS: Glucose,Whole Blood 127 mg/dL (75-99)
[2017-02-26] MEDS: BUDESONIDE 1 MG/2 ML NEBU INHALATION SCH ×2 (07:39→19:16)
[2017-02-26] MEDS: FORMOTEROL FUMARATE 20 MCG/2 ML NEBU INHALATION SCH ×2 (07:39→19:16)
[2017-02-26 07:44] LABS: Creatine Kinase 44 U/L (55-170)
[2017-02-26] MEDS: THEOPHYLLINE 24 HOUR 300 MG CAP.ER.24H PO SCH (07:51)
[2017-02-26] MEDS: ENOXAPARIN 40 MG/0.4 ML SYRINGE SQ SCH (07:51)
[2017-02-26] MEDS: MONTELUKAST 10 MG TAB PO SCH (07:51)
[2017-02-26 07:57] LABS: Troponin I <0.012 ng/mL (0.000-0.034)
[2017-02-26 07:59] LABS: Creatine Kinase MB 3.1 ng/mL (0.0-2.4)
[2017-02-26] MEDS ORDERED: LORATADINE 10 MG TAB PO SCH (09:15)
--- NOTE | 2017-02-26 09:41 | PN ---
DATE OF SERVICE: 02/25/2017 ATTENDING NOTE: This patient was seen and examined by me today. I reviewed the note of my nurse practitioner, Ms. Cardozo and discussed it with her. Patient admitted with COPD exacerbation. Still got some wheezing and cough, bringing up some sputum. On examination, pulse 92, blood pressure 125/87. On exam, lungs decreased breath sounds. Expiratory wheezing. CARDIOVASCULAR: First and second sounds normal. PSYCH: Anxious-appearing. INVESTIGATIONS: Accu-Cheks are noted. ASSESSMENT: Acute chronic obstructive pulmonary disease exacerbation in an ex-smoker with right lobe pneumonia, suspect gram-negative organism. Continue with the same treatment. Sputum has been unremarkable. PLAN: Continued nebulized bronchodilators, steroids, antibiotics. Will give a topical nasal decongestant. Will follow.
[2017-02-26 12:18] LABS: Glucose,Whole Blood 115 mg/dL (75-99)
[2017-02-26] MEDS: LEVOFLOXACIN 750 MG TAB PO SCH (12:20)
[2017-02-26 17:17] LABS: Glucose,Whole Blood 118 mg/dL (75-99)
[2017-02-26 21:51] LABS: Glucose,Whole Blood 173 mg/dL (75-99)
[2017-02-27] MEDS: ALBUTEROL NEB (CONC) 2.5 MG/0.5 ML INHALATION SCH ×7 (02:58→23:24)
[2017-02-27] MEDS: IPRATROPIUM 0.5 MG/2.5 ML NEBU INHALATION SCH ×7 (02:59→23:24)
--- NOTE | 2017-02-27 07:47 | PN ---
A 71-year-old gentleman admitted with a diagnosis of COPD exacerbation. Doing much better. Chest x-ray continues to show a very minimal infiltrate on the lateral view only in the posterior base. He is still complaining of some shortness of breath, some chest congestion, coughing, not producing much phlegm. In my opinion though, much improved. He is moving air well both on inspiration and exhalation. He was admitted Dr. Mc's service. He sees Dr. Webb in the office. Current vital signs are stable. Temperature 97.2, heart rate 82, respiratory rate 20, blood pressure 144/103. His mean arterial pressure is 116 and his saturation on 3 L 96%. He appears in no acute distress. HEENT examination is grossly unremarkable. Mucous membranes are moist. No oral lesions. NECK: Supple. Full range of motion. No adenopathy or thyromegaly. Cardiovascular examination reveals regular rhythm and rate. S1, S2 normal. No S3, S4 or murmur. Lungs reveal coarse inspiratory and expiratory rhonchi and wheezes. Breath sounds have improved. His adventitious lung sounds are a third of what they were. Breath sounds are equal bilaterally. They are reduced. No crackles. ABDOMEN: Soft. Bowel sounds are heard. Extremities are intact. No cyanosis, clubbing or edema. Skin is without rash. Labs are reviewed. White count 12.4. Hemoglobin, hematocrit and platelet count normal. Sodium, potassium and chloride, and CO2 normal. BUN and creatinine were 25 and 0.89. Microbiology is all negative. Chest x-ray still shows that minimal infiltrate in the base only on the lateral view. Medications are reviewed, all appropriate. ASSESSMENT: 1. Chronic obstructive pulmonary disease exacerbation complicated by purulent tracheobronchitis. I doubt significant pneumonia. He has minimal infiltrate or atelectasis at the base of the lung only seen on the lateral projection. 2. Prostate cancer. 3. History of sleep apnea syndrome. 4. Aortic aneurysm. PLAN: The patient is doing well in my opinion. Hopeful discharge in the next day or so. I did talk to Dr. Mc's nurse practitioner. Mr. Guzman once he gets into the hospital tends not to want to be discharged. We will continue to follow. No additional recommendations are made.
[2017-02-27 07:48] LABS: Glucose,Whole Blood 92 mg/dL (75-99)
--- NOTE | 2017-02-27 08:43 | PN ---
DATE OF SERVICE: 02/26/2017. PRESENTING COMPLAINT: Shortness of breath. INTERVAL HISTORY: This is a 71-year-old gentleman who had increasing shortness of breath over the past 4 days, found to have severe COPD exacerbation and pneumonia. Patient states he feels mildly better today. Again continuing to have a productive cough but does continue to complain of having feelings of shortness of breath. No acute distress noted or voiced. However, patient continues to have significant shortness of breath on minimal exertion. Review of systems done for constitutional, cardiovascular, gastrointestinal, pulmonary with relevant findings as above. CURRENT MEDICATIONS: Albuterol, ipratropium, Xanax, Lovenox, Humalog, Solu-Medrol, Requip, theophylline. PHYSICAL EXAMINATION: VITAL SIGNS: Temperature 97.2, pulse 82, respiratory rate 20, blood pressure 144/103, oxygen saturation 94% on 4 liters nasal cannula GENERAL APPEARANCE: Patient lying in bed. No acute distress noted or voiced. States his sinus congestion is somewhat better today. EYES: Pupils equal. Conjunctivae normal. NECK: JVD not raised. Mass not palpable. LUNGS: Tight breath sounds bilaterally: RESPIRATORY: Effort normal, labored on exertion. CARDIOVASCULAR: First and second sounds normal. No edema noted. ABDOMEN: Soft, nontender. Liver and spleen not palpable. PSYCHIATRY: Alert and oriented x3. Mood and affect are normal. INVESTIGATIONS: White blood cell count 12.4, hemoglobin 15.6, platelet count 223, sodium 138, potassium 4.8, BUN 25, creatinine 0.89. Blood glucose 127. Total CK 44, CK-MB 3.1, troponin less than 0.012. ECG normal sinus rhythm. ASSESSMENT: 1. Right middle lobe pneumonia; suspect gram-negative organism, present on admission, slow to respond. 2. Acute severe chronic obstructive pulmonary disease exacerbation in an ex-smoker, slow to respond. 3. Obstructive sleep apnea, uses CPAP machine. 4. Prostate cancer wait and watch process. 5. Ascending aortic aneurysm 4.2. 6. Chronic restless leg syndrome. 7. Anxiety, not otherwise specified. PLAN: Overnight patient had an episode of chest pain for which labs and ECG revealed no acute process. Cardiology remains on board. Plan of care was discussed with the patient. Patient remains on high dose nebulized bronchodilators and steroids. Expect patient to remain in the hospital at least 1 to 2 more days. Patient is aware of this information. Pulmonology saw the patient and feels patient is about as ready as he can be for discharge. Patient was seen and examined by nurse practitioner Joann Cardozo and all elements of the case was discussed with the attending, Dr. Mc.
[2017-02-27] MEDS: FORMOTEROL FUMARATE 20 MCG/2 ML NEBU INHALATION SCH ×2 (08:47→19:22)
[2017-02-27] MEDS: BUDESONIDE 1 MG/2 ML NEBU INHALATION SCH ×2 (08:47→19:22)
[2017-02-27] MEDS: ENOXAPARIN 40 MG/0.4 ML SYRINGE SQ SCH (09:21)
[2017-02-27] MEDS: INSULIN LISPRO (humaLOG) 300 UNIT/3 ML VIAL SQ SCH ×4 (09:21→21:10)
[2017-02-27] MEDS: MONTELUKAST 10 MG TAB PO SCH (09:22)
[2017-02-27] MEDS: predniSONE 20 MG TAB PO SCH (09:22)
[2017-02-27] MEDS: LORATADINE 10 MG TAB PO SCH (09:22)
[2017-02-27] MEDS: OXYMETAZOLINE 0.05% NASL SPRAY 15 ML NASAL SCH ×2 (09:22→21:04)
[2017-02-27] MEDS: THEOPHYLLINE 24 HOUR 300 MG CAP.ER.24H PO SCH (09:22)
[2017-02-27] MEDS: ALPRAZolam 0.25 MG TAB PO PRN ×2 (09:33→21:08)
--- NOTE | 2017-02-27 11:13 | PN ---
DATE OF SERVICE: 02/26/2017 ATTENDING NOTE: The patient was seen and examined by me today. I reviewed the note of my nurse practitioner, Ms. Cardozo, and discussed. Additional note as below. Patient admitted with COPD exacerbation. Still has some wheezing and cough, bringing up some clear sputum. is at the bedside. The patient has been sleeping well. Currently the patient is on: 1. Solu-Medrol. 2. Levaquin. On examination, temperature 97.6, pulse 98, respirations 22, blood pressure 123/82. RESPIRATORY: Effort increased. LUNGS: Improved air entry. Some wheezing. CARDIOVASCULAR: First and second sounds normal. No edema. PSYCH: Alert and oriented x3. Mood is slightly anxious-appearing. INVESTIGATIONS: Accu-Cheks are noted Troponin negative. Initially patient did have an episode of chest pain earlier. EKG was unremarkable. ASSESSMENT: Acute chronic obstructive pulmonary disease exacerbation in an ex-smoker with right lobe pneumonia, suspect gram-negative organism, clinically improving. PLAN: I talked with the patient and at length. Will talk to Pulmonary to see if the patient may have any benefit from bronchial a lavage. Otherwise, looking at discharge in the next 24 hours.
[2017-02-27 11:59] LABS: Glucose,Whole Blood 97 mg/dL (75-99)
[2017-02-27 13:39] VITALS: BMI 26.9
[2017-02-27] MEDS: LEVOFLOXACIN 750 MG TAB PO SCH (14:10)
[2017-02-27] MEDS ORDERED: methylPREDNISolone SOD SUCCI 125 MG/2 ML VIAL IV STA (15:10)
[2017-02-27] MEDS: IPRATROPIUM-ALBUTEROL 3 ML NEB INHALATION PRN (15:56)
--- NOTE | 2017-02-27 16:55 | P.PN ---
Subjective This 71-year-old male patient with has advanced COPD with an FEV1 of 33% of predicted. The patient is in the hospital for COPD exacerbation and unfortunately is not improving. He continues to have a congested cough and is unable to bring up any sputum. No hemoptysis or pleurisy. He has significant limitation excess capacity and the patient gets short of breath with minimal amount of activity. No change in mental status. The possibility of bronchoscopy was discussed with him and that he has had approximately 2 years ago with good results. No previous history of any hospital-acquired infections including staph or gram-negative. The patient is currently on a prednisone burst taper. He is also and accommodation of bronchodilators. Short of breath even at rest. Untreated oxygen nasal cannula saturations around 96%. Objective - Vital Signs Vital signs: Vital Signs Temp 97.6 F 02/27/17 15:00 Pulse 96 02/27/17 16:13 Resp 16 02/27/17 15:00 BP 126/79 02/27/17 15:00 Pulse Ox 90 L 02/27/17 15:00 Intake & Output 02/26/17 02/27/17 02/27/17 18:59 06:59 18:59 Intake Total 1015 600 Balance 1015 600 Weight 75.6 kg Intake: Oral 1015 600 Other: Voiding Method Toilet Toilet # Voids 3 1 3 # Bowel Movements 1 - Exam The patient appeared well nourished and normally developed. Vital signs as documented. Head exam is unremarkable. No scleral icterus or corneal arcus noted. Neck is without jugular venous distension, thyromegaly, or carotid bruits. Carotid upstrokes are brisk bilaterally. Lungs are markedly diminished and there is diffuse expiratory wheezes without the lung calixto bilaterally and there is prolongation of expiratory phase of breathing.. Cardiac exam reveals the PMI to be normally sized and situated. Rhythm is regular. First and second heart sounds normal. No murmurs, rubs or gallops. Abdominal exam reveals normal bowel sounds, no masses, no organomegaly and no aortic enlargement. Extremities are nonedematous and both femoral and pedal pulses are normal. - Labs CBC & Chem 7: 02/26/17 06:49 02/26/17 06:49 Labs: Abnormal Lab Results - Last 24 Hours (Table) 02/26/17 02/26/17 Range/Units 17:14 21:27 POC Glucose (mg/dL) 118 H 173 H (75-99) mg/dL Microbiology - Last 24 Hours (Table) 02/20/17 14:56 Blood Culture - Final Blood No Growth after 144 hours Assessment and Plan Plan: Assessment 1COPD exacerbation with slow progression improvement over the past few days. Chest x-ray remains free of any acute pulmonary infiltrates 2 advanced COPD with a baseline FEV1 of 33% of predicted 3 obstructive sleep apnea maintained on CPAP therapy 4 aortic aneurysm 5 prostate cancer Plan Give the patient does of IV Solu-Medrol 60 mg IV push. Continue prednisone. Continue bronchodilators. Keep nothing by mouth after midnight for possible bronchoscopy tomorrow.
[2017-02-27 17:14] LABS: Glucose,Whole Blood 140 mg/dL (75-99)
[2017-02-27 20:44] LABS: Glucose,Whole Blood 175 mg/dL (75-99)
[2017-02-28] MEDS ORDERED: ALBUTEROL NEB (CONC) 2.5 MG/0.5 ML INHALATION ONE (04:00)
[2017-02-28] MEDS ORDERED: IPRATROPIUM-ALBUTEROL 3 ML NEB ONE (04:00)
[2017-02-28] MEDS: ALBUTEROL NEB (CONC) 2.5 MG/0.5 ML INHALATION SCH ×5 (06:15→20:03)
[2017-02-28] MEDS: IPRATROPIUM 0.5 MG/2.5 ML NEBU INHALATION SCH ×5 (06:15→20:03)
[2017-02-28] MEDS: BUDESONIDE 1 MG/2 ML NEBU INHALATION SCH ×2 (07:28→20:03)
[2017-02-28] MEDS: FORMOTEROL FUMARATE 20 MCG/2 ML NEBU INHALATION SCH ×2 (07:28→20:03)
[2017-02-28 07:35] LABS: Glucose,Whole Blood 104 mg/dL (75-99)
[2017-02-28] MEDS: INSULIN LISPRO (humaLOG) 300 UNIT/3 ML VIAL SQ SCH ×4 (07:51→20:40)
--- NOTE | 2017-02-28 08:42 | PN ---
DATE OF SERVICE: 02/27/2017. INTERVAL HISTORY: This is a 71-year-old gentleman who had increasing shortness of breath over the past 4 days, found to have severe COPD exacerbation and pneumonia. Patient states he is feeling not much better today. Continues to have a productive cough and does continue to complain of feeling short of breath with minimal exertion. Review of systems done for constitutional, cardiovascular, gastrointestinal, pulmonary, with relevant findings as above. MEDICATIONS: Albuterol, ipratropium Xanax, Lovenox, Humalog, Solu-Medrol, Requip, theophylline. PHYSICAL EXAMINATION: VITAL SIGNS: Temperature 97.6, pulse 100, blood pressure 126/79, oxygen saturation 98% on 4 liters nasal cannula GENERAL APPEARANCE: Patient was resting quietly in bed. No acute distress noted or voiced; however patient continues to complain of feeling short of breath with minimal exertion. EYES: Pupils equal. Conjunctivae normal. NECK: JVD not raised. Mass not palpable. LUNGS: Diminished and tight bilaterally some expiratory wheezing noted. Respiratory effort normal, somewhat labored. CARDIOVASCULAR: First and second sounds noted and no edema. ABDOMEN: Soft, nontender. Bowel sounds present in all 4 quadrants. Liver and spleen not palpable. PSYCHIATRY: Alert and oriented x3. Mood and affect normal to flat. INVESTIGATIONS: Blood glucose 97. ASSESSMENT: 1. Right middle lobe pneumonia, suspect gram-negative organism, present on admission, slow to respond. 2. Acute severe chronic obstructive pulmonary disease exacerbation in an ex-smoker, slow to respond. 3. Obstructive sleep apnea, uses CPAP machine. 4. Prostate cancer wait and watch process. 5. Ascending aortic aneurysm 4.2 cm. 6. Chronicle restless leg syndrome. 7. Anxiety not otherwise specified. PLAN: We will continue current medication and treatment plan. Spoke with pulmonology about bronchoscopy. Pulmonology is agreeable to perform the procedure and patient is also agreeable to have the procedure. Patient remains on high dose nebulized bronchodilators and steroids. Expecting patient to remain in the hospital for at least 1 to 2 more days. Patient is aware of plan of care and is in agreement. Patient was seen and examined by nurse practitioner, Joann Cardozo and all the elements of the case were discussed with attending, Dr. Mc. I performed a history and physical examination of this patient and discussed the same with the dictator. I agree with the dictator's note. Any additional findings/opinions, etc. will be noted.
[2017-02-28] MEDS ORDERED: LACTATED RINGERS 1,000 ML IV ONE (10:21)
[2017-02-28] MEDS ORDERED: GLYCOPYRROLATE 0.2 MG/ML 2 ML VIAL ONE (10:37)
[2017-02-28] MEDS ORDERED: LIDOCAINE 1% INJ 10MG/ML (20 ML MDV) ONE (10:37)
[2017-02-28] MEDS ORDERED: KETAMINE 10 MG/ML 20 ML VIAL ONE (10:37)
[2017-02-28] MEDS ORDERED: MIDAZOLAM 2 MG/2 ML VIAL ONE (10:37)
[2017-02-28] MEDS ORDERED: PROPOFOL 10 MG/ML 20 ML VIAL IV ONE (10:37)
--- NOTE | 2017-02-28 10:54 | PN ---
DATE OF SERVICE: 02/27/2017 ATTENDING NOTE: This patient was seen and examined by me today. Review the note of my nurse practitioner, Ms. Cardozo, and discussed with her. Patient remains to be short of breath, wheezing, bringing up some clear sputum, feels a bit tired. On examination, LUNGS: Decreased breath sounds, prolonged expiration and wheezing. CARDIOVASCULAR: First and second sounds normal. PSYCH: Anxious -appearing. INVESTIGATIONS: Accu-Cheks are noted. ASSESSMENT: 1. Acute severe chronic obstructive pulmonary disease exacerbation in an ex-smoker. 2. Right lower lobe pneumonia, slow to respond. PLAN: I discussed with Dr. Altman earlier in the day today to see if he can do bronchoscopy with lavage to help the patient. In the meantime continue current medication and treatment plan. Patient is still slow to respond.
--- NOTE | 2017-02-28 11:00 | P.PN ---
Subjective This 71-year-old male patient with has advanced COPD with an FEV1 of 33% of predicted. The patient is in the hospital for COPD exacerbation and unfortunately is not improving. He continues to have a congested cough and is unable to bring up any sputum. No hemoptysis or pleurisy. He has significant limitation excess capacity and the patient gets short of breath with minimal amount of activity. No change in mental status. The possibility of bronchoscopy was discussed with him and that he has had approximately 2 years ago with good results. No previous history of any hospital-acquired infections including staph or gram-negative. The patient is currently on a prednisone burst taper. He is also and accommodation of bronchodilators. Short of breath even at rest. Untreated oxygen nasal cannula saturations around 96%. On 02/28/2017 the patient is being seen in follow-up. This is a significantly congested chest with mucus inspissation she is unable to cough it out. If his shortness of breath. No much improvement since yesterday. The plan is to proceed with bronchoscopy for therapeutic airway suctioning. The patient was agreeable to the procedure. Objective - Vital Signs Vital signs: Vital Signs Temp 98.5 F 02/28/17 07:00 Pulse 92 02/28/17 08:00 Resp 18 02/28/17 07:00 BP 141/91 02/28/17 07:00 Pulse Ox 93 L 02/28/17 07:00 Intake & Output 02/27/17 02/28/17 02/28/17 18:59 06:59 18:59 Intake Total 600 Balance 600 Weight 75.6 kg Intake: Oral 600 Other: Voiding Method Toilet Toilet Toilet # Voids 3 2 # Bowel Movements 1 - Exam The patient appeared well nourished and normally developed. Vital signs as documented. Head exam is unremarkable. No scleral icterus or corneal arcus noted. Neck is without jugular venous distension, thyromegaly, or carotid bruits. Carotid upstrokes are brisk bilaterally. Lungs are markedly diminished and there is diffuse expiratory wheezes without the lung calixto bilaterally and there is prolongation of expiratory phase of breathing.. Cardiac exam reveals the PMI to be normally sized and situated. Rhythm is regular. First and second heart sounds normal. No murmurs, rubs or gallops. Abdominal exam reveals normal bowel sounds, no masses, no organomegaly and no aortic enlargement. Extremities are nonedematous and both femoral and pedal pulses are normal. - Labs CBC & Chem 7: 02/26/17 06:49 02/26/17 06:49 Labs: Abnormal Lab Results - Last 24 Hours (Table) 02/27/17 02/27/17 02/28/17 Range/Units 17:12 20:42 07:33 POC Glucose (mg/dL) 140 H 175 H 104 H (75-99) mg/dL Assessment and Plan Plan: Assessment 1COPD exacerbation with slow progression improvement over the past few days. Chest x-ray remains free of any acute pulmonary infiltrates 2 advanced COPD with a baseline FEV1 of 33% of predicted 3 obstructive sleep apnea maintained on CPAP therapy 4 aortic aneurysm 5 prostate cancer Plan No much improvement in the patient's condition. Suspect copious amount of rest or secretions and mucous plugging based on our evaluation. For this reason, the patient would have a bronchoscopy and therapeutic it was suctioning and bronchoalveolar lavage. The procedure will be done in the bronchoscopy suite. Further recommendations are to follow based on the findings.
--- NOTE | 2017-02-28 11:20 | P.PCN ---
Date of Procedure: 02/28/17 Preoperative Diagnosis: COPD exacerbation Postoperative Diagnosis: Purulent tracheal bronchitis with copious amount of mucus plugging Procedure(s) Performed: Flexible bronchoscopy Implants: Anesthesia: MAC Surgeon: Kaylee Altman Estimated Blood Loss (ml): 10 Pathology: other Condition: stable Disposition: floor Indications for Procedure: Operative Findings: Description of Procedure: This procedure was done and the bronchoscopy suite. The patient has advanced COPD and there was concern that the patient may desaturate during the procedure. There is on that, the patient was given a total of 50 mg of ketamine and 20 mg of IV propofol. Following that, I was able to introduce the bronchoscope through the night nostril was advanced Doppler airway. Examination of the posterior oropharynx, larynx, epiglottis and vocal cords was done. There was significant collapsibility of the laryngeal with sedation and this is a dynamic obstruction. The epiglottis was identified. The vallecula 12. Cords and arytenoids were all within normal limits. He was applied to the vocal cords and following that the bronchoscope was advanced to the upper trachea. Examination trachea bronchial tree was initiated and immediately proceeded the patient had significant amount of copious purulent respiratory secretions that were streaky and/or occupying the entire taken bronchial tree mainly the posterior tracheal wall and bilateral mainstem bronchi. At this point, I attempted to initiate a therapeutic airway suctioning however my procedure was interrupted by episodes of oxygen desaturations. The patient's pulse ox was dropping in the low 60s and I had to interrupt the procedure. The bronchoscope was removed and airway was established and the patient was bagged for almost 5-10 minutes to blink his saturation and keep it above 90%. This procedure was done by anesthesia the bedside. At that point was obvious that the patient was not going to tolerate. Bronchoscopy fairly well based on the fact that he has advanced COPD and minimal pulmonary reserve. Desaturations were the main reason why the procedure was interrupted and discontinued. I was able to however visualize the trachea back and mainstem bronchi and she segments of the lower lobe and this was a quick look however I was not able to perform a decent therapeutic airway suctioning. The patient ultimately recovered from the sedation. His saturation remained above 90%. He got moved to recovery for further monitoring and he will be moved back to his fall. He is awake and conversing and communicating. My plan is to consider repeating a bronchoscopy while the patient has a secure airway being intubated on mechanical ventilator and this will give me the opportunity to perform adequate therapeutic it was suctioning. This will be done if the patient shows no improvement within next 24-48 hours.
[2017-02-28 12:04] LABS: Glucose,Whole Blood 93 mg/dL (75-99)
[2017-02-28] MEDS: predniSONE 20 MG TAB PO SCH (13:00)
[2017-02-28] MEDS: THEOPHYLLINE 24 HOUR 300 MG CAP.ER.24H PO SCH (13:00)
[2017-02-28] MEDS: ENOXAPARIN 40 MG/0.4 ML SYRINGE SQ SCH (13:00)
[2017-02-28] MEDS: MONTELUKAST 10 MG TAB PO SCH (13:01)
[2017-02-28] MEDS: LEVOFLOXACIN 750 MG TAB PO SCH (13:01)
[2017-02-28] MEDS: LORATADINE 10 MG TAB PO SCH (13:01)
[2017-02-28] MEDS: OXYMETAZOLINE 0.05% NASL SPRAY 15 ML NASAL SCH ×2 (13:01→20:21)
[2017-02-28] MEDS: ALPRAZolam 0.25 MG TAB PO PRN ×2 (13:05→21:42)
[2017-02-28 16:52] LABS: Glucose,Whole Blood 130 mg/dL (75-99)
[2017-02-28 20:42] LABS: Glucose,Whole Blood 162 mg/dL (75-99)
[2017-03-01] MEDS: ALBUTEROL NEB (CONC) 2.5 MG/0.5 ML INHALATION SCH ×7 (00:40→23:10)
[2017-03-01] MEDS: IPRATROPIUM 0.5 MG/2.5 ML NEBU INHALATION SCH ×7 (00:40→23:10)
--- NOTE | 2017-03-01 05:56 | PN ---
DATE OF SERVICE: 02/28/2017 INTERVAL HISTORY: This is a 71-year-old gentleman who has increasing shortness of breath over the past 4 days, found to have severe COPD exacerbation and pneumonia. Patient states today he is not feeling much better. Plan for him today is to be taken for bronchoscopy with Dr. Altman. Patient does continue to have a productive cough and does complain of feeling shortness of breath with minimal exertion. Patient is ambulatory, although short distances only. States he feels pretty good. Swelling noted to his bilateral lower extremities. Review of systems done for constitutional, cardiovascular, gastrointestinal, pulmonary with relevant findings as above. MEDICATIONS: Albuterol, ipratropium, Xanax, Lovenox, Humalog, Solu-Medrol, Requip, theophylline. PHYSICAL EXAM: VITAL SIGNS: Temperature 98.5, pulse 96, respirations 18, blood pressure 141/91, oxygen saturation 93% on 3 L nasal cannula. GENERAL APPEARANCE: Patient is resting quietly in bed. No acute distress noted or voiced. Patient again voices his concerns about feeling short of breath with very minimal exertion. EYES: Pupils equal. Conjunctivae normal. NECK: JVD not raised. Mass not palpable. LUNGS: Diminished and tight bilaterally, some expiratory wheezing noted. RESPIRATORY: Effort normal, somewhat labored. CARDIOVASCULAR: First and second sounds noted. +1 edema noted to bilateral lower extremities. ABDOMEN: Soft, nontender. Bowel sounds present in all 4 quadrants. Liver and spleen not palpable. PSYCHIATRY: Alert and oriented x3. Mood and affect normal to flat. INVESTIGATIONS: Bronchoscopy purulent tracheobronchitis with copious amounts of mucous plugging. During procedure, patient did desaturate and procedure was aborted with plans to due a bronchoscopy under general anesthesia in a couple of days. ASSESSMENT: 1. Right middle lobe pneumonia; suspect gram-negative organism, present on admission, slow to respond. 2. Acute severe chronic obstructive pulmonary disease exacerbation in an ex-smoker, slow to respond. 3. Obstructive sleep apnea, he uses CPAP machine. 4. Prostate cancer in wait and watch process. 5. Ascending aortic aneurysm 4.2 cm. 6. Chronic restless leg syndrome. 7. Anxiety, not otherwise specified. PLAN: We will continue current medication and treatment plan. Pulmonology completed the bronchoscopy; however, made one attempt during procedure and was unable to complete the bronchoscopy in full secondary to desaturation of the patient. A future attempt will be done under general anesthesia to clear away some of the patient's secretions per Pulmonology. Patient to remain on high dose nebulized bronchodilators and steroids expecting patient to remain in the hospital for at least 2 more days. Patient is aware of the plan of care and is in agreement. Patient was seen and examined by nurse practitioner, Joann Cardozo, and all elements of the case were discussed with the attending, Dr. Mc.
[2017-03-01] MEDS: BUDESONIDE 1 MG/2 ML NEBU INHALATION SCH ×2 (07:06→20:56)
[2017-03-01] MEDS: FORMOTEROL FUMARATE 20 MCG/2 ML NEBU INHALATION SCH ×2 (07:07→20:56)
[2017-03-01 07:43] LABS: Glucose,Whole Blood 85 mg/dL (75-99)
[2017-03-01] MEDS: ENOXAPARIN 40 MG/0.4 ML SYRINGE SQ SCH (07:45)
[2017-03-01] MEDS: INSULIN LISPRO (humaLOG) 300 UNIT/3 ML VIAL SQ SCH ×4 (07:45→21:30)
[2017-03-01] MEDS: predniSONE 20 MG TAB PO SCH (07:46)
[2017-03-01] MEDS: OXYMETAZOLINE 0.05% NASL SPRAY 15 ML NASAL SCH ×2 (07:46→21:35)
[2017-03-01] MEDS: MONTELUKAST 10 MG TAB PO SCH (07:46)
[2017-03-01] MEDS: LORATADINE 10 MG TAB PO SCH (07:46)
[2017-03-01] MEDS: THEOPHYLLINE 24 HOUR 300 MG CAP.ER.24H PO SCH (07:46)
--- NOTE | 2017-03-01 09:36 | PN ---
DATE OF SERVICE: 02/28/2017 ATTENDING NOTE: The patient was seen and examined earlier today. Patient did undergo bronchoscopy, not much could be achieved with patient sudden desaturating. I spoke to Dr. Altman. Patient has a lot of inflammation and pus was present. Patient remains quite short of breath. On examination, lungs decreased breath sounds. Prolonged expiration and wheezing. CARDIOVASCULAR: First and second sounds are normal. INVESTIGATIONS: As above. ASSESSMENT: 1. Acute severe chronic obstructive pulmonary disease exacerbation with severe edema and bronchoscopy could not be completed. 2. Pneumonia. PLAN: Patient will have a repeat bronchoscopy with lavage under anesthesia in a couple of days. In the meantime, continue current medication and treatment plan. Spoke to the patient and . Prognosis guarded. Definitely slow to respond.
[2017-03-01 09:50] LABS: Basophils # (A) 0.1 k/uL (0-0.2); Basophils % (A) 1 %; CH 32.6; CHCM 32.8; Eosinophils % (A) 0 %; HCT 48.5 % (39.0-53.0); HDW 2.47; HGB 15.9 gm/dL (13.0-17.5); Luc # (Auto) 0.08; Luc % (Auto) 1; Lymphocytes # (A) 0.6 k/uL (1.0-4.8); Lymphocytes % (A) 6 %; MCH 32.7 pg (25.0-35.0); MCHC 32.7 g/dL (31.0-37.0); Macrocytosis Slight; Mean Platelet Volume 7.2; Monocytes # (A) 0.5 k/uL (0-1.0); Monocytes % (A) 4 %; Neutrophils # (A) 9.3 k/uL (1.3-7.7); Neutrophils % (A) 88 %; RBC 4.85 m/uL (4.30-5.90); WBC 10.6 k/uL (3.8-10.6); WBC (Perox) 10.33
[2017-03-01 10:29] LABS: Anion Gap 7 mmol/L; Blood Urea Nitrogen 27 mg/dL (9-20); Calcium 8.8 mg/dL (8.4-10.2); Carbon Dioxide 33 mmol/L (22-30); Chloride 97 mmol/L (98-107); Glucose 134 mg/dL (74-99); Non-African American GFR(MDRD) >60 (>60 ml/min/1.73 sqM); Potassium 3.9 mmol/L (3.5-5.1); Sodium 137 mmol/L (137-145)
[2017-03-01 11:43] LABS: Glucose,Whole Blood 104 mg/dL (75-99)
[2017-03-01] MEDS: ALPRAZolam 0.25 MG TAB PO PRN ×2 (13:09→21:30)
[2017-03-01] MEDS: LEVOFLOXACIN 750 MG TAB PO SCH (13:09)
--- NOTE | 2017-03-01 16:53 | PN ---
DATE OF SERVICE: 03/01/2017 INTERVAL HISTORY: This is a 71-year-old gentleman who was admitted with severe COPD exacerbation and pneumonia. Today patient is resting comfortably in bed. No apparent distress. Patient still comments on extreme shortness of breath when doing minimal activities. Patient's breathing is easy; however, noticeable cough. Swelling noted to his bilateral lower extremities. Patient is able to ambulate in the hallways a little bit; cannot go very far, but is able to ambulate. Review of systems done for cardiovascular constitutional, gastrointestinal, pulmonary with relevant findings as above. MEDICATIONS: 1. Albuterol. 2. Ipratropium. 3. Xanax. 4. Lovenox. 5. Humalog. 6. Solu-Medrol. 7. Requip. 8. Theophylline. PHYSICAL EXAM: VITAL SIGNS: 98.3 temperature, pulse 97, respirations 14, blood pressure 128/99, oxygen saturation 93% on 4L nasal cannula. GENERAL APPEARANCE: Patient is resting quietly in bed. No acute distress noted or voiced. Patient continues to be short of breath with minimal exertion. EYES: Pupils equal. Conjunctivae normal. NECK: JVD not raised. Mass not palpable. LUNGS: Diminished and tight bilaterally. Some expiratory wheezing noted. RESPIRATORY: Effort normal, somewhat labored. CARDIOVASCULAR: First and second sounds noted. +1 edema noted to bilateral lower extremities. ABDOMEN: Soft, nontender. Bowel sounds present in all 4 quadrants. Liver and spleen not palpable. PSYCHIATRY: Alert and oriented x3. Mood and affect normal to flat. INVESTIGATIONS: White blood cell count 10.6, hemoglobin 15.9, platelet count 198. Sodium 137, potassium 3.9, BUN 27, creatinine 0.98, blood glucose 134. ASSESSMENT: 1. Right middle lobe pneumonia, suspect gram-negative organism, present on admission, slow to respond. 2. Acute severe chronic obstructive pulmonary disease exacerbation in an ex-smoker, slow to respond. 3. Obstructive sleep apnea. Patient uses continuous positive airway pressure machine. 4. Prostate cancer in a wait and watch process. 5. Ascending aortic aneurysm, 4.2 cm. 6. Chronic restless leg syndrome. 7. Anxiety, not otherwise specified. PLAN: We will continue current medication and treatment plan. Pulmonology has plan for bronchoscopy later this week. The procedure should be done under general anesthesia. Patient will remain on high-dose nebulized bronchodilators and steroids. Patient is aware of the current plan and is in agreement. Patient was seen and examined by Nurse Practitioner Joann Cardozo and all elements of the case were discussed with the attending, Dr. Mc. I performed a history and physical examination of this patient and discussed the same with the dictator. I agree with the dictator's note. Any additional findings/opinions, etc. will be noted.
[2017-03-01 17:09] LABS: Glucose,Whole Blood 101 mg/dL (75-99)
--- NOTE | 2017-03-01 17:12 | P.PN ---
Subjective This 71-year-old male patient with has advanced COPD with an FEV1 of 33% of predicted. The patient is in the hospital for COPD exacerbation and unfortunately is not improving. He continues to have a congested cough and is unable to bring up any sputum. No hemoptysis or pleurisy. He has significant limitation excess capacity and the patient gets short of breath with minimal amount of activity. No change in mental status. The possibility of bronchoscopy was discussed with him and that he has had approximately 2 years ago with good results. No previous history of any hospital-acquired infections including staph or gram-negative. The patient is currently on a prednisone burst taper. He is also and accommodation of bronchodilators. Short of breath even at rest. Untreated oxygen nasal cannula saturations around 96%. On 02/28/2017 the patient is being seen in follow-up. This is a significantly congested chest with mucus inspissation she is unable to cough it out. If his shortness of breath. No much improvement since yesterday. The plan is to proceed with bronchoscopy for therapeutic airway suctioning. The patient was agreeable to the procedure. The patient is seen again today 03/01/2017 in follow-up on the regular medical floor. He is awake and alert in no acute distress. He did undergo bronchoscopy with BAL yesterday however the procedure was hindered by his significant COPD and desaturations. The patient is better today as compared to yesterday. He is having some hemoptysis. He is still has a tight loose nonproductive cough. Still not near his baseline. We will plan to repeat the bronchoscopy with BAL tomorrow in the operating room as the patient be intubated and monitored closely during the bronchoscopy without concern for significant desaturations. Objective - Vital Signs Vital signs: Vital Signs Temp 97.3 F L 03/01/17 15:00 Pulse 100 03/01/17 17:03 Resp 16 03/01/17 15:00 BP 104/56 03/01/17 15:00 Pulse Ox 95 03/01/17 15:00 Intake & Output 02/28/17 03/01/17 03/01/17 18:59 06:59 18:59 Intake Total 1150 Balance 1150 Intake: IV 550 Oral 600 Other: Voiding Method Toilet Toilet # Voids 3 2 3 - Exam GENERAL EXAM: Alert, active, comfortable in no apparent distress. HEAD: Normocephalic. EYES: Normal reaction of pupils, equal size. NOSE: Clear with pink turbinates. THROAT: No erythema or exudates. NECK: No masses, no JVD. CHEST: No chest wall deformity. LUNGS: Equal air entry with no crackles, wheeze, rhonchi or dullness. CVS: S1 and S2 normal with no audible murmurs, regular rhythm. ABDOMEN: No hepatosplenomegaly, normal bowel sounds, no guarding or rigidity. SPINE: No scoliosis or deformity SKIN: No rashes CENTRAL NERVOUS SYSTEM: No focal deficits, tone is normal in all 4 extremities. Extremities. There is no peripheral edema. No clubbing, no cyanosis. Peripheral pulses are intact. - Labs CBC & Chem 7: 03/01/17 08:56 03/01/17 08:56 Labs: Abnormal Lab Results - Last 24 Hours (Table) 02/28/17 03/01/17 03/01/17 Range/Units 20:34 08:56 08:56 Neutrophils # 9.3 H (1.3-7.7) k/uL Lymphocytes # 0.6 L (1.0-4.8) k/uL Chloride 97 L (98-107) mmol/L Carbon Dioxide 33 H (22-30) mmol/L BUN 27 H (9-20) mg/dL Glucose 134 H (74-99) mg/dL POC Glucose (mg/dL) 162 H (75-99) mg/dL 03/01/17 03/01/17 Range/Units 11:35 17:07 Neutrophils # (1.3-7.7) k/uL Lymphocytes # (1.0-4.8) k/uL Chloride (98-107) mmol/L Carbon Dioxide (22-30) mmol/L BUN (9-20) mg/dL Glucose (74-99) mg/dL POC Glucose (mg/dL) 104 H 101 H (75-99) mg/dL Microbiology - Last 24 Hours (Table) 02/28/17 11:00 Gram Stain - Preliminary Bronchial Washings - Left Bronchial Washings Culture - Preliminary Assessment and Plan Plan: Impression: #1 Acute exacerbation of severe, oxygen dependent chronic obstructive pulmonary disease. #2 Acute on chronic hypoxic respiratory failure secondary to above. #3 Obstructive sleep apnea. #4 History of prostate cancer. #5 History of ascending aortic aneurysm. Plan: The patient was seen and evaluated by Dr. Altman. The patient is still not quite back to his baseline but improved. We'll continue with his current medications. We'll increase his activity as tolerated. We will plan for bronchoscopy with BAL of the OR tomorrow where the patient will be intubated and pulmonary status is more stable. We'll continue to follow.
[2017-03-01 20:37] LABS: Glucose,Whole Blood 104 mg/dL (75-99)
--- NOTE | 2017-03-01 23:03 | PN ---
DATE OF SERVICE: 03/01/2017 ATTENDING NOTE: This patient was seen and examined by me earlier today. This patient was admitted with COPD exacerbation and pneumonia, status post incomplete bronchoscopy. Still quite short of breath, rattly today. Lying in bed, tired-appearing. Current medications include Levaquin, oral prednisone. On examination, afebrile, pulse 97, respiration 18, blood pressure 120/99, pulse ox 93% on room air. RESPIRATORY: Effort increased. LUNGS: Decreased breath sounds, prolonged expiration and wheezing. Rattling in the chest. PSYCH: Alert and oriented x3. Anxious-appearing. INVESTIGATIONS: White count 10.6. Potassium 3.9. ASSESSMENT: 1. Pneumonia; suspect Gram-negative organism; present on admission, slow to respond. 2. Acute severe chronic obstructive pulmonary disease exacerbation in an ex-smoker, slow to respond, status post attempted bronchoscopy. PLAN: Discuss with Dr. Altman. Patient will get bronchoscopy tomorrow under anesthesia. Prognosis guarded. Will follow.
[2017-03-02] MEDS: IPRATROPIUM 0.5 MG/2.5 ML NEBU INHALATION SCH ×5 (03:28→23:05)
[2017-03-02] MEDS: ALBUTEROL NEB (CONC) 2.5 MG/0.5 ML INHALATION SCH ×5 (03:28→23:05)
[2017-03-02 07:12] LABS: Glucose,Whole Blood 84 mg/dL (75-99)
[2017-03-02] MEDS: FORMOTEROL FUMARATE 20 MCG/2 ML NEBU INHALATION SCH ×2 (07:29→20:50)
[2017-03-02] MEDS: BUDESONIDE 1 MG/2 ML NEBU INHALATION SCH ×2 (07:44→20:50)
[2017-03-02] MEDS: INSULIN LISPRO (humaLOG) 300 UNIT/3 ML VIAL SQ SCH (07:48)
[2017-03-02] MEDS: ENOXAPARIN 40 MG/0.4 ML SYRINGE SQ SCH (07:50)
[2017-03-02] MEDS: THEOPHYLLINE 24 HOUR 300 MG CAP.ER.24H PO SCH (07:53)
[2017-03-02] MEDS: MONTELUKAST 10 MG TAB PO SCH (07:53)
[2017-03-02] MEDS: ALPRAZolam 0.25 MG TAB PO PRN ×2 (07:53→21:50)
[2017-03-02] MEDS: OXYMETAZOLINE 0.05% NASL SPRAY 15 ML NASAL SCH ×2 (07:54→21:50)
[2017-03-02] MEDS: predniSONE 20 MG TAB PO SCH (07:54)
[2017-03-02] MEDS: LORATADINE 10 MG TAB PO SCH (07:54)
[2017-03-02 11:13] LABS: Glucose,Whole Blood 106 mg/dL (75-99)
[2017-03-02] MEDS ORDERED: LACTATED RINGERS 1,000 ML IV ONE ×3 (12:13→13:55)
[2017-03-02] MEDS ORDERED: SUCCINYLCHOLINE CHLORIDE 100 MG/5 ML SYR IV ONE (13:12)
[2017-03-02] MEDS ORDERED: fentaNYL (PF) 50 MCG/ML 2 ML AMP ONE (13:12)
[2017-03-02] MEDS ORDERED: MIDAZOLAM 2 MG/2 ML VIAL ONE (13:12)
[2017-03-02] MEDS ORDERED: LIDOCAINE 1% INJ 10MG/ML (20 ML MDV) ONE (13:12)
[2017-03-02] MEDS ORDERED: PROPOFOL 10 MG/ML 20 ML VIAL IV ONE (13:12)
[2017-03-02] MEDS: LEVOFLOXACIN 750 MG TAB PO SCH (15:00)
--- NOTE | 2017-03-02 15:38 | P.PN ---
Subjective This 71-year-old male patient with has advanced COPD with an FEV1 of 33% of predicted. The patient is in the hospital for COPD exacerbation and unfortunately is not improving. He continues to have a congested cough and is unable to bring up any sputum. No hemoptysis or pleurisy. He has significant limitation excess capacity and the patient gets short of breath with minimal amount of activity. No change in mental status. The possibility of bronchoscopy was discussed with him and that he has had approximately 2 years ago with good results. No previous history of any hospital-acquired infections including staph or gram-negative. The patient is currently on a prednisone burst taper. He is also and accommodation of bronchodilators. Short of breath even at rest. Untreated oxygen nasal cannula saturations around 96%. On 02/28/2017 the patient is being seen in follow-up. This is a significantly congested chest with mucus inspissation she is unable to cough it out. If his shortness of breath. No much improvement since yesterday. The plan is to proceed with bronchoscopy for therapeutic airway suctioning. The patient was agreeable to the procedure. On 03/01/2017 the patient was still having some shortness of breath. Based on this, we decided to proceed with a bronchoscopy under general anesthesia for therapeutic airway suctioning and bronchioloalveolar lavage. On 03/02/2017 the patient was seen in follow-up. The patient still was having a congested cough. We decided to proceed with a bronchoscopy again under general anesthesia while the patient is intubated to spend adequate amount of time doing appropriate therapy care was suctioning and bronchioloalveolar lavage. Meanwhile, the bronchial cultures were aspirated earlier from the procedure that was done on 02/28 showed normal respiratory jesús. Objective - Vital Signs Vital signs: Vital Signs Temp 98.4 F 03/02/17 13:38 Pulse 97 03/02/17 14:08 Resp 18 03/02/17 14:08 BP 107/84 03/02/17 14:08 Pulse Ox 92 L 03/02/17 14:08 Intake & Output 03/01/17 03/02/17 03/02/17 18:59 06:59 18:59 Intake Total 400 Balance 400 Intake: IV 400 Other: Voiding Method Toilet Toilet # Voids 3 2 3 - Exam The patient appeared well nourished and normally developed. Vital signs as documented. Head exam is unremarkable. No scleral icterus or corneal arcus noted. Neck is without jugular venous distension, thyromegaly, or carotid bruits. Carotid upstrokes are brisk bilaterally. Lungs are markedly diminished and there is diffuse expiratory wheezes without the lung calixto bilaterally and there is prolongation of expiratory phase of breathing.. Cardiac exam reveals the PMI to be normally sized and situated. Rhythm is regular. First and second heart sounds normal. No murmurs, rubs or gallops. Abdominal exam reveals normal bowel sounds, no masses, no organomegaly and no aortic enlargement. Extremities are nonedematous and both femoral and pedal pulses are normal. - Labs CBC & Chem 7: 03/01/17 08:56 03/01/17 08:56 Labs: Abnormal Lab Results - Last 24 Hours (Table) 03/01/17 03/01/17 03/02/17 Range/Units 17:07 20:36 11:11 POC Glucose (mg/dL) 101 H 104 H 106 H (75-99) mg/dL Microbiology - Last 24 Hours (Table) 02/28/17 11:00 Gram Stain - Final Bronchial Washings - Left Bronchial Washings Culture - Final Assessment and Plan Plan: Assessment 1COPD exacerbation with slow progression improvement over the past few days. Chest x-ray remains free of any acute pulmonary infiltrates 2 advanced COPD with a baseline FEV1 of 33% of predicted 3 obstructive sleep apnea maintained on CPAP therapy 4 aortic aneurysm 5 prostate cancer Plan The patient already had an initial bronchoscopy. The patient will have a subsequent bronchoscopy today under general anesthesia was the patient is intubated on mechanical ventilator. I was present of time performing septic and was suctioning and this patient. We'll send for samples for a culture. This should help this patient's respiratory status knowing that he has significant amount of mucous plugging and rest or secretions. This will be good opportunity to repeat his cultures. Prevacid obtain samples showed normal respiratory jesús. Meanwhile, we'll continue same treatment.
--- NOTE | 2017-03-02 15:43 | P.PCN ---
Date of Procedure: 03/02/17 Preoperative Diagnosis: COPD exacerbation, mucous plugging Postoperative Diagnosis: Same Procedure(s) Performed: Flexible bronchoscopy under general anesthesia. Therapeutic airway suctioning. Implants: Anesthesia: NAKIAA Surgeon: Kaylee Altman Estimated Blood Loss (ml): 0 Pathology: other Condition: stable Disposition: floor Indications for Procedure: Operative Findings: This patient was brought to the operating room. The patient was intubated and placed on mechanical ventilator by the usual fashion and this procedure was done by [employer]. The patient was intubated by #8 orotracheal tube. An adapter was attached to the orotracheal tube and following that the flexible bronchoscope was advanced into the lower trachea. As expected, there was copious amount of thick purulent respiratory secretions scattered throughout the patient's airways. Therapeutic airway suctioning was done and approximately 25-30 mL of purulent material was suctioned from the patient's lungs. Addendum of the procedure, the bronchial mucosa was inspected and was quite inflamed and erythematous. Nevertheless, no endobronchial tumors or lesions identified. The visualized airways occluded mid and the lower trachea, bilateral mainstem bronchi, right upper lobe bronchus, bronchus intermedius, right middle lobe bronchus, right lower lobe bronchus, left upper lobe bronchus , left lower lobe bronchussegments. Segmental bronchial washings also done. Addendum of the procedure, all of these airways were clear of any residual mucous plugs. The patient was subsequently extubated and chest with recovery in stable condition. No bedside Complications or bleeding. The samples will be sent for Gram stain and culture. Description of Procedure:
--- NOTE | 2017-03-02 20:47 | PN ---
DATE OF SERVICE: 03/02/2017 INTERVAL HISTORY: This is a 71-year-old gentleman who is admitted with a severe COPD exacerbation and pneumonia. Today the patient is resting comfortably, awaiting his OR time for a bronchoscopy, No apparent distress. Patient is short of breath on minimal exertion. No nasal flaring noted. No accessory muscle use. No retractions. Patient is able to ambulate; however, only short distances. Review of systems done for cardiovascular, constitutional, gastrointestinal, pulmonary with relevant findings as above. MEDICATIONS: 1. Albuterol. 2. Ipratropium. 3. Xanax. 4. Lovenox. 5. Humalog. 6. Solu-Medrol. 7. Theophylline. PHYSICAL EXAMINATION: VITAL SIGNS: Temperature 97.4, pulse 87, respiratory rate 16, blood pressure 127/75, oxygen saturation 92% on 3L nasal cannula. GENERAL APPEARANCE: Patient is awake, alert, no acute distress noted or voiced. EYES: Pupils equal. Conjunctivae normal. NECK: JVD not raised. Mass not palpable. LUNGS: Breath sounds tight bilaterally, minimal amounts of airway flow noted. Diffuse crackles and rhonchi noted. RESPIRATORY: Effort normal. Mildly labored. CARDIOVASCULAR: First and second sounds noted. Trace edema to lower bilateral lower extremities. ABDOMEN: Soft, nontender. Liver and spleen not palpable. PSYCHIATRY: Alert and oriented x3. Mood and affect are normal. INVESTIGATIONS: Patient is slated for a bronchoscopy this afternoon. Blood glucose 106. ASSESSMENT: 1. Pneumonia; suspect gram-negative organism, present on admission, slow to respond. 2. Acute severe chronic obstructive pulmonary disease exacerbation in an ex-smoker. Slow to respond, status post attempted bronchoscopy. We will continue current medication and treatment plan. Will await results of bronchoscopy later today. Patient will remain on high-dose nebulized bronchodilators and steroids. Patient is aware of the current plan and is in agreement. Patient was seen and examined by Nurse Practitioner Joann Cardozo and all elements of the case were discussed with the attending, Dr. Mc. I performed a history and physical examination of this patient and discussed the same with the dictator. I agree with the dictator's note. Any additional findings/opinions, etc. will be noted.
[2017-03-02] MEDS: IPRATROPIUM-ALBUTEROL 3 ML NEB INHALATION SCH ×2 (20:50→23:07)
[2017-03-03] MEDS: IPRATROPIUM-ALBUTEROL 3 ML NEB INHALATION SCH ×5 (03:02→20:31)
[2017-03-03 07:18] LABS: Glucose,Whole Blood 78 mg/dL (75-99)
[2017-03-03] MEDS: BUDESONIDE 1 MG/2 ML NEBU INHALATION SCH ×2 (08:01→20:29)
[2017-03-03] MEDS: FORMOTEROL FUMARATE 20 MCG/2 ML NEBU INHALATION SCH ×2 (08:02→20:29)
[2017-03-03] MEDS: ALPRAZolam 0.25 MG TAB PO PRN ×2 (08:20→21:51)
[2017-03-03] MEDS: predniSONE 20 MG TAB PO SCH (08:20)
[2017-03-03] MEDS: MONTELUKAST 10 MG TAB PO SCH (08:20)
[2017-03-03] MEDS: THEOPHYLLINE 24 HOUR 300 MG CAP.ER.24H PO SCH (08:20)
[2017-03-03] MEDS: LORATADINE 10 MG TAB PO SCH (08:21)
[2017-03-03] MEDS: ENOXAPARIN 40 MG/0.4 ML SYRINGE SQ SCH (08:21)
[2017-03-03] MEDS: OXYMETAZOLINE 0.05% NASL SPRAY 15 ML NASAL SCH ×2 (08:21→21:51)
[2017-03-03] MEDS: LEVOFLOXACIN 750 MG TAB PO SCH (11:29)
--- NOTE | 2017-03-03 13:18 | XR ---
EXAMINATION TYPE: XR chest 2V DATE OF EXAM: 03/03/2017 1:08 PM COMPARISON: 02/25/2017 INDICATION: Short of breath history of pneumonia TECHNIQUE: Single frontal view of the chest is obtained. FINDINGS: The heart size is normal. The pulmonary vasculature is normal. The lungs are clear. Hyperinflation compatible with COPD. IMPRESSION: 1. No acute pulmonary process. 2. COPD
--- NOTE | 2017-03-03 14:26 | P.PN ---
Subjective Principal diagnosis: Acute exacerbation of chronic obstructive pulmonary disease This 71-year-old male patient with has advanced COPD with an FEV1 of 33% of predicted. The patient is in the hospital for COPD exacerbation and unfortunately is not improving. He continues to have a congested cough and is unable to bring up any sputum. No hemoptysis or pleurisy. He has significant limitation excess capacity and the patient gets short of breath with minimal amount of activity. No change in mental status. The possibility of bronchoscopy was discussed with him and that he has had approximately 2 years ago with good results. No previous history of any hospital-acquired infections including staph or gram-negative. The patient is currently on a prednisone burst taper. He is also and accommodation of bronchodilators. Short of breath even at rest. Untreated oxygen nasal cannula saturations around 96%. On 02/28/2017 the patient is being seen in follow-up. This is a significantly congested chest with mucus inspissation she is unable to cough it out. If his shortness of breath. No much improvement since yesterday. The plan is to proceed with bronchoscopy for therapeutic airway suctioning. The patient was agreeable to the procedure. The patient is seen again today 03/01/2017 in follow-up on the regular medical floor. He is awake and alert in no acute distress. He did undergo bronchoscopy with BAL yesterday however the procedure was hindered by his significant COPD and desaturations. The patient is better today as compared to yesterday. He is having some hemoptysis. He is still has a tight loose nonproductive cough. Still not near his baseline. We will plan to repeat the bronchoscopy with BAL tomorrow in the operating room as the patient be intubated and monitored closely during the bronchoscopy without concern for significant desaturations. On 03/02/2017 the patient was seen in follow-up. The patient still was having a congested cough. We decided to proceed with a bronchoscopy again under general anesthesia while the patient is intubated to spend adequate amount of time doing appropriate therapy care was suctioning and bronchioloalveolar lavage. Meanwhile, the bronchial cultures were aspirated earlier from the procedure that was done on 02/28 showed normal respiratory ejsús. The patient was seen again today 03/03/2017 in follow-up on the regular medical floor. He is doing better following his second bronchoscopy and BAL. Initial cultures were negative. He remains on Levaquin. Today's chest x-ray does not reveal any acute pulmonary process. He remains on 4 L/m per nasal cannula to maintain O2 saturations in the 90s. He remains afebrile. Hemodynamically stable. Objective - Vital Signs Vital signs: Vital Signs Temp 97 F L 03/03/17 07:00 Pulse 96 03/03/17 11:20 Resp 20 03/03/17 07:00 BP 123/82 03/03/17 07:00 Pulse Ox 95 03/03/17 08:04 Intake & Output 03/02/17 03/03/17 03/03/17 18:59 06:59 18:59 Intake Total 400 450 Balance 400 450 Weight 75.6 kg Intake: IV 400 Oral 450 Other: Voiding Method Toilet # Voids 3 2 # Bowel Movements 1 - Exam GENERAL EXAM: Alert, active, comfortable in no apparent distress. HEAD: Normocephalic. EYES: Normal reaction of pupils, equal size. NOSE: Clear with pink turbinates. THROAT: No erythema or exudates. NECK: No masses, no JVD. CHEST: No chest wall deformity. LUNGS: Equal air entry with no crackles, wheeze, rhonchi or dullness. CVS: S1 and S2 normal with no audible murmurs, regular rhythm. ABDOMEN: No hepatosplenomegaly, normal bowel sounds, no guarding or rigidity. SPINE: No scoliosis or deformity SKIN: No rashes CENTRAL NERVOUS SYSTEM: No focal deficits, tone is normal in all 4 extremities. Extremities. There is no peripheral edema. No clubbing, no cyanosis. Peripheral pulses are intact. - Labs CBC & Chem 7: 03/01/17 08:56 03/01/17 08:56 Labs: Microbiology - Last 24 Hours (Table) 03/02/17 13:30 Gram Stain - Preliminary Bronchial Washings - Right Bronchial Washings Culture - Preliminary 02/28/17 11:00 Gram Stain - Final Bronchial Washings - Left Bronchial Washings Culture - Final Assessment and Plan Plan: Impression: #1 Acute exacerbation of severe, oxygen dependent chronic obstructive pulmonary disease. #2 Acute on chronic hypoxic respiratory failure secondary to above. #3 Obstructive sleep apnea. #4 History of prostate cancer. #5 History of ascending aortic aneurysm. Plan: The patient was seen and evaluated by Dr. Altman. The patient is still not quite back to his baseline, very slow to progress. We'll continue with his current medications. We'll increase his activity as tolerated. We'll continue to follow.
--- NOTE | 2017-03-03 21:05 | PN ---
DATE OF SERVICE: 03/02/2017 ATTENDING NOTE: This patient was seen and examined by me yesterday on 03/02/17. This patient presented with severe COPD and pneumonia. Patient is going to have a bronchoscopy today. On examination, lungs have decreased breath sounds with expiratory wheezing. INVESTIGATIONS: Accu-Cheks are noted. ASSESSMENT: 1. Pneumonia, suspected Gram-negative organism, slow to respond. Suspect severe secretions. 2. Acute severe chronic obstructive pulmonary disease exacerbation in an ex-smoker, slow to respond. PLAN: Continue current medication and treatment plan and follow.
--- NOTE | 2017-03-03 21:39 | PN ---
DATE OF SERVICE: 03/03/2017 INTERVAL HISTORY: This is a 71-year-old gentleman who is admitted with severe COPD exacerbation and pneumonia. Today the patient is resting comfortably. Some shortness of breath noted. Loose productive cough with sputum production. Patient is short of breath on minimal exertion. Patient is ambulating in the hallways, tolerating his diet. Review of systems done for cardiovascular constitutional, gastrointestinal, pulmonary with relevant findings as above. MEDICATIONS: 1. Albuterol. 2. Ipratropium. 3. Xanax. 4. Lovenox. 5. Humalog. 6. Solu-Medrol. 7. Theophylline. PHYSICAL EXAMINATION: VITAL SIGNS: Temperature 97.0, pulse 80, respirations 20, blood pressure 123/82, oxygen saturation 91% on 3L nasal cannula GENERAL APPEARANCE: Patient is lying in bed, resting comfortably. No acute distress noted or voiced. EYES: Pupils equal. Conjunctivae normal. NECK: JVD not raised. Mass not palpable LUNGS: Tight breath sounds posteriorly. Crackles noted throughout. Anteriorly, coarse rhonchi noted bilaterally. RESPIRATORY: Effort normal, mildly labored. CARDIOVASCULAR: First and second sounds normal. Trace edema noted to bilateral lower extremities, particularly the ankles. ABDOMEN: Soft, nontender. Liver and spleen not palpable. PSYCHIATRY: Alert and oriented x3. Mood and affect are normal. INVESTIGATIONS: No new lab values to report. ASSESSMENT: 1. Pneumonia, suspect gram-negative organism, present on admission, slow to respond. 2. Acute severe chronic obstructive pulmonary disease exacerbation in an ex-smoker. Slow to respond, status post bronchial washing. 3. Obstructive sleep apnea. Patient uses continuous positive airway pressure machine. 4. Prostate cancer in wait and watch process. 5. Ascending aortic aneurysm, 4.2 cm. 6. Chronic restless leg syndrome. 7. Anxiety, not otherwise specified. PLAN: We will continue current medication and treatment plan. Await results of the bronchial specimens sent to Pathology. Patient will remain on high-dose nebulized bronchodilators and steroids. Patient is aware of the current plan and is in agreement. Patient was seen and examined by Nurse Practitioner Joann Cardozo and all elements of the case were discussed and the attending, Dr. Mc. I performed a history and physical examination of this patient and discussed the same with the dictator. I agree with the dictator's note. Any additional findings/opinions, etc. will be noted.
--- NOTE | 2017-03-03 22:30 | PN ---
DATE OF SERVICE: 03/03/2017 ATTENDING NOTE: This patient was seen and examined by me earlier today. I reviewed the note of my nurse practitioner, Ms. Cardozo, and agree with the same. Patient admitted with severe COPD, pneumonia, status post bronchoscopy with lavage. Patient is actually up in the hallway. Breathing is actually better. Tolerating a diet. Current medications are reviewed that include nebulized bronchodilators, Levaquin, oral prednisone. Patient's bronchial washings are all coming back negative until now. ASSESSMENT: 1. Acute severe chronic obstructive pulmonary disease exacerbation. 2. Right middle lobe pneumonia; suspect Gram-negative organism, present on admission. 3. Obstructive sleep apnea; uses CPAP machine. 4. Prostate cancer, in wait and watch process. 5. Ascending aortic aneurysm, 4.2 cm. 6. Chronic restless leg syndrome. 7. Anxiety not otherwise specified. PLAN: Continue with current medication and treatment plan. Await further results of the bronchoscopy. Patient is also getting nebulized bronchodilators. Will follow.
[2017-03-04] MEDS: IPRATROPIUM-ALBUTEROL 3 ML NEB INHALATION SCH ×7 (00:04→23:07)
[2017-03-04] MEDS: ENOXAPARIN 40 MG/0.4 ML SYRINGE SQ SCH (07:35)
[2017-03-04] MEDS: LORATADINE 10 MG TAB PO SCH (07:35)
[2017-03-04] MEDS: THEOPHYLLINE 24 HOUR 300 MG CAP.ER.24H PO SCH (07:35)
[2017-03-04] MEDS: predniSONE 20 MG TAB PO SCH (07:35)
[2017-03-04] MEDS: MONTELUKAST 10 MG TAB PO SCH (07:35)
[2017-03-04] MEDS: OXYMETAZOLINE 0.05% NASL SPRAY 15 ML NASAL SCH ×2 (07:36→21:25)
[2017-03-04] MEDS: ALPRAZolam 0.25 MG TAB PO PRN ×2 (07:38→21:24)
[2017-03-04 10:47] LABS: CH 32.3; CHCM 32.9; HCT 51.7 % (39.0-53.0); HDW 2.55; HGB 16.8 gm/dL (13.0-17.5); MCHC 32.4 g/dL (31.0-37.0); MCV 98.7 fL (80.0-100.0); RBC 5.24 m/uL (4.30-5.90); WBC 16.4 k/uL (3.8-10.6)
[2017-03-04] MEDS: LEVOFLOXACIN 750 MG TAB PO SCH (11:33)
[2017-03-04 11:35] LABS: Anion Gap 5 mmol/L; Blood Urea Nitrogen 30 mg/dL (9-20); Calcium 8.8 mg/dL (8.4-10.2); Carbon Dioxide 33 mmol/L (22-30); Chloride 99 mmol/L (98-107); Glucose 118 mg/dL (74-99); Non-African American GFR(MDRD) >60 (>60 ml/min/1.73 sqM); Potassium 4.2 mmol/L (3.5-5.1); Sodium 137 mmol/L (137-145)
[2017-03-04] MEDS: BUDESONIDE 1 MG/2 ML NEBU INHALATION SCH ×2 (11:38→20:01)
[2017-03-04] MEDS: FORMOTEROL FUMARATE 20 MCG/2 ML NEBU INHALATION SCH ×2 (11:38→20:01)
--- NOTE | 2017-03-04 14:56 | P.PN ---
Subjective Principal diagnosis: Acute exacerbation of chronic obstructive pulmonary disease This 71-year-old male patient with has advanced COPD with an FEV1 of 33% of predicted. The patient is in the hospital for COPD exacerbation and unfortunately is not improving. He continues to have a congested cough and is unable to bring up any sputum. No hemoptysis or pleurisy. He has significant limitation excess capacity and the patient gets short of breath with minimal amount of activity. No change in mental status. The possibility of bronchoscopy was discussed with him and that he has had approximately 2 years ago with good results. No previous history of any hospital-acquired infections including staph or gram-negative. The patient is currently on a prednisone burst taper. He is also and accommodation of bronchodilators. Short of breath even at rest. Untreated oxygen nasal cannula saturations around 96%. On 02/28/2017 the patient is being seen in follow-up. This is a significantly congested chest with mucus inspissation she is unable to cough it out. If his shortness of breath. No much improvement since yesterday. The plan is to proceed with bronchoscopy for therapeutic airway suctioning. The patient was agreeable to the procedure. The patient is seen again today 03/01/2017 in follow-up on the regular medical floor. He is awake and alert in no acute distress. He did undergo bronchoscopy with BAL yesterday however the procedure was hindered by his significant COPD and desaturations. The patient is better today as compared to yesterday. He is having some hemoptysis. He is still has a tight loose nonproductive cough. Still not near his baseline. We will plan to repeat the bronchoscopy with BAL tomorrow in the operating room as the patient be intubated and monitored closely during the bronchoscopy without concern for significant desaturations. On 03/02/2017 the patient was seen in follow-up. The patient still was having a congested cough. We decided to proceed with a bronchoscopy again under general anesthesia while the patient is intubated to spend adequate amount of time doing appropriate therapy care was suctioning and bronchioloalveolar lavage. Meanwhile, the bronchial cultures were aspirated earlier from the procedure that was done on 02/28 showed normal respiratory jesús. The patient was seen again today 03/03/2017 in follow-up on the regular medical floor. He is doing better following his second bronchoscopy and BAL. Initial cultures were negative. He remains on Levaquin. Today's chest x-ray does not reveal any acute pulmonary process. He remains on 4 L/m per nasal cannula to maintain O2 saturations in the 90s. He remains afebrile. Hemodynamically stable. The patient is seen again today 03/04/2017 in follow-up on the regular medical floor. He is awake and alert in no acute distress. He does have slightly improved activity tolerance but still not quite back to his baseline. He remains on 4 L/m per nasal cannula to maintain O2 saturations in the 90s. He has been afebrile. Current white count 16.4. Bronchial wash still pending from second bronchoscopy. He remains on Levaquin. Objective - Vital Signs Vital signs: Vital Signs Temp 98.6 F 03/04/17 07:00 Pulse 100 03/04/17 11:48 Resp 16 03/04/17 07:00 BP 122/90 03/04/17 07:00 Pulse Ox 94 L 03/04/17 07:00 Intake & Output 03/03/17 03/04/17 03/04/17 18:59 06:59 18:59 Intake Total 740 Balance 740 Intake: Oral 740 Other: Voiding Method Toilet # Voids 2 1 1 - Exam GENERAL EXAM: Alert, active, comfortable in no apparent distress. HEAD: Normocephalic. EYES: Normal reaction of pupils, equal size. NOSE: Clear with pink turbinates. THROAT: No erythema or exudates. NECK: No masses, no JVD. CHEST: No chest wall deformity. LUNGS: Equal air entry with no crackles, wheeze, rhonchi or dullness. CVS: S1 and S2 normal with no audible murmurs, regular rhythm. ABDOMEN: No hepatosplenomegaly, normal bowel sounds, no guarding or rigidity. SPINE: No scoliosis or deformity SKIN: No rashes CENTRAL NERVOUS SYSTEM: No focal deficits, tone is normal in all 4 extremities. Extremities. There is no peripheral edema. No clubbing, no cyanosis. Peripheral pulses are intact. - Labs CBC & Chem 7: 03/04/17 10:21 03/04/17 10:21 Labs: Abnormal Lab Results - Last 24 Hours (Table) 03/04/17 03/04/17 Range/Units 10:21 10:21 WBC 16.4 H (3.8-10.6) k/uL Carbon Dioxide 33 H (22-30) mmol/L BUN 30 H (9-20) mg/dL Glucose 118 H (74-99) mg/dL Microbiology - Last 24 Hours (Table) 03/02/17 13:30 Gram Stain - Preliminary Bronchial Washings - Right Bronchial Washings Culture - Preliminary Assessment and Plan Plan: Impression: #1 Acute exacerbation of severe, oxygen dependent chronic obstructive pulmonary disease. #2 Acute on chronic hypoxic respiratory failure secondary to above. #3 Obstructive sleep apnea. #4 History of prostate cancer. #5 History of ascending aortic aneurysm. Plan: The patient was seen and evaluated by Dr. Altman. The patient is still not quite back to his baseline. We'll continue with his current medications including bronchodilators, Pulmicort and Perforomist inhalations, and antibiotics in the form of Levaquin. He remains on Claritin, Singulair and theophylline. We'll continue with the prednisone taper. We'll increase his activity as tolerated. We'll continue to follow.
--- NOTE | 2017-03-04 19:30 | PN ---
DATE OF SERVICE: 03/04/2017 INTERVAL HISTORY: This is a patient with severe COPD exacerbation and pneumonia. Today the patient is resting comfortably on his bed. Some shortness of breath noted. Loose, productive cough continues with sputum production. Patient remains short of breath on minimal exertion. Patient is ambulating in the hallways and tolerating his diet. Review of systems done for cardiovascular constitutional, gastrointestinal, pulmonary with relevant findings as above. MEDICATIONS: 1. DuoNeb 0.5 mg-3 mg in a 3- mL solution q.4 hours p.r.n. 2. Pulmicort 1 mg inhalation b.i.d. 3. Levaquin 750 mg p.o. every 12 hours. 4. Prednisone 40 mg p.o. daily. 5. Theophylline 300 mg p.o. daily. PHYSICAL EXAMINATION: VITAL SIGNS: Temperature 98.6, pulse 94, respirations 16, blood pressure 122/90, oxygen saturation 94% on 4L. GENERAL APPEARANCE: Patient lying on the bed, resting comfortably. EYES: Pupils equal. Conjunctivae normal. NECK: JVD not raised. Mass not palpable. LUNGS: Coarse breath sounds throughout bilateral lung calixto. Expiration longer than inspiration. Respiratory effort normal. CARDIOVASCULAR: First and second sounds noted. Trace edema. ABDOMEN: Soft, nontender. Liver and spleen not palpable. PSYCHIATRY: Alert and oriented x3. Mood and affect are normal. INVESTIGATIONS: White blood cell count 16.4, hemoglobin 15.8, platelet count 211. Sodium 137, potassium 4.2. BUN 30, creatinine 1.02. ASSESSMENT: 1. Pneumonia suspect gram-negative organism, present on admission, slow to respond. 2. Acute severe chronic obstructive pulmonary disease exacerbation in an ex-smoker. Slow to respond, status post bronchial washing. 3. Obstructive sleep apnea. Patient uses continuous positive airway pressure machine. 4. Prostate cancer in a wait and watch process. 5. Ascending aortic aneurysm, 4.2 cm. 6. Chronic restless leg syndrome. 7. Anxiety, not otherwise specified. PLAN: We will continue current medication and treatment plan. Awaiting results of the bronchial specimens sent to Pathology. Patient will continue on high-dose nebulized bronchodilators and steroids as well as antibiotic therapy. Patient is aware of the current plan and is in agreement. Patient was seen and examined by Nurse Practitioner Joann Cardozo and all elements of the case discussed with the attending, Dr. Mc. I performed a history and physical examination of this patient and discussed the same with the dictator. I agree with the dictator's note. Any additional findings/opinions, etc. will be noted.
[2017-03-05] MEDS: IPRATROPIUM-ALBUTEROL 3 ML NEB INHALATION SCH ×4 (03:25→17:09)
--- NOTE | 2017-03-05 07:49 | PN ---
DATE OF SERVICE: 03/04/2017 ATTENDING NOTE: This patient seen and examined by me earlier today. I reviewed the note of my nurse practitioner, Ms. Cardozo. Discussed with her. Patient is status post bronchoscopy with lavage. Has been up in the hallway. Congestion is better, tolerating diet. Patient is on oral prednisone. On examination, blood pressure 130/90, pulse ox 94% on 4 liters. GENERAL APPEARANCE: Sitting up, tired -appearing. LUNGS: Decreased breath sounds and wheezing, but less crackles. CARDIOVASCULAR: First and second sounds normal. INVESTIGATIONS: White count 16.4. ASSESSMENT: 1. Pneumonia ( ) organism, present on admission. 2. Acute severe chronic obstructive pulmonary disease exacerbation, doing better after lavage and washing. 3. Obstructive sleep apnea, continue using CPAP. PLAN: Discussed with Dr. Altman. At this point continue with current medication and treatment plan. Patient's bronch findings are all coming back negative.
[2017-03-05 07:54] VITALS: BP 118/89; RESP 16; TEMP 98.2
[2017-03-05] MEDS: MONTELUKAST 10 MG TAB PO SCH (08:19)
[2017-03-05] MEDS: LORATADINE 10 MG TAB PO SCH (08:19)
[2017-03-05] MEDS: ENOXAPARIN 40 MG/0.4 ML SYRINGE SQ SCH (08:19)
[2017-03-05] MEDS: predniSONE 20 MG TAB PO SCH (08:19)
[2017-03-05] MEDS: OXYMETAZOLINE 0.05% NASL SPRAY 15 ML NASAL SCH (08:20)
[2017-03-05] MEDS: ALPRAZolam 0.25 MG TAB PO PRN (08:23)
[2017-03-05] MEDS: BUDESONIDE 1 MG/2 ML NEBU INHALATION SCH (08:41)
[2017-03-05] MEDS: FORMOTEROL FUMARATE 20 MCG/2 ML NEBU INHALATION SCH (08:41)
[2017-03-05] MEDS: THEOPHYLLINE 24 HOUR 300 MG CAP.ER.24H PO SCH (09:09)
[2017-03-05] MEDS: LEVOFLOXACIN 750 MG TAB PO SCH (12:31)
--- NOTE | 2017-03-05 14:34 | P.PN ---
Subjective This 71-year-old male patient with has advanced COPD with an FEV1 of 33% of predicted. The patient is in the hospital for COPD exacerbation and unfortunately is not improving. He continues to have a congested cough and is unable to bring up any sputum. No hemoptysis or pleurisy. He has significant limitation excess capacity and the patient gets short of breath with minimal amount of activity. No change in mental status. The possibility of bronchoscopy was discussed with him and that he has had approximately 2 years ago with good results. No previous history of any hospital-acquired infections including staph or gram-negative. The patient is currently on a prednisone burst taper. He is also and accommodation of bronchodilators. Short of breath even at rest. Untreated oxygen nasal cannula saturations around 96%. On 02/28/2017 the patient is being seen in follow-up. This is a significantly congested chest with mucus inspissation she is unable to cough it out. If his shortness of breath. No much improvement since yesterday. The plan is to proceed with bronchoscopy for therapeutic airway suctioning. The patient was agreeable to the procedure. The patient is seen again today 03/01/2017 in follow-up on the regular medical floor. He is awake and alert in no acute distress. He did undergo bronchoscopy with BAL yesterday however the procedure was hindered by his significant COPD and desaturations. The patient is better today as compared to yesterday. He is having some hemoptysis. He is still has a tight loose nonproductive cough. Still not near his baseline. We will plan to repeat the bronchoscopy with BAL tomorrow in the operating room as the patient be intubated and monitored closely during the bronchoscopy without concern for significant desaturations. On 03/02/2017 the patient was seen in follow-up. The patient still was having a congested cough. We decided to proceed with a bronchoscopy again under general anesthesia while the patient is intubated to spend adequate amount of time doing appropriate therapy care was suctioning and bronchioloalveolar lavage. Meanwhile, the bronchial cultures were aspirated earlier from the procedure that was done on 02/28 showed normal respiratory jesús. The patient was seen again today 03/03/2017 in follow-up on the regular medical floor. He is doing better following his second bronchoscopy and BAL. Initial cultures were negative. He remains on Levaquin. Today's chest x-ray does not reveal any acute pulmonary process. He remains on 4 L/m per nasal cannula to maintain O2 saturations in the 90s. He remains afebrile. Hemodynamically stable. The patient is seen again today 03/04/2017 in follow-up on the regular medical floor. He is awake and alert in no acute distress. He does have slightly improved activity tolerance but still not quite back to his baseline. He remains on 4 L/m per nasal cannula to maintain O2 saturations in the 90s. He has been afebrile. Current white count 16.4. Bronchial wash still pending from second bronchoscopy. He remains on Levaquin. On 03/05/2017, the patient is still producing mucus. The previous bronchoscopies were done on this patient showed no microbial growth. His improving. He is on oral steroids. No nausea or vomiting. No other new complaints otherwise for now. Objective - Vital Signs Vital signs: Vital Signs Temp 98.2 F 03/05/17 07:00 Pulse 100 03/05/17 12:35 Resp 16 03/05/17 07:00 BP 118/89 03/05/17 07:00 Pulse Ox 94 L 03/05/17 07:00 Intake & Output 03/04/17 03/05/17 03/05/17 18:59 06:59 18:59 Intake Total 700 Balance 700 Intake: Oral 700 Other: Voiding Method Toilet # Voids 1 1 2 - Exam The patient appeared well nourished and normally developed. Vital signs as documented. Head exam is unremarkable. No scleral icterus or corneal arcus noted. Neck is without jugular venous distension, thyromegaly, or carotid bruits. Carotid upstrokes are brisk bilaterally. Lungs are markedly diminished and there is diffuse expiratory wheezes without the lung calixto bilaterally and there is prolongation of expiratory phase of breathing.. Cardiac exam reveals the PMI to be normally sized and situated. Rhythm is regular. First and second heart sounds normal. No murmurs, rubs or gallops. Abdominal exam reveals normal bowel sounds, no masses, no organomegaly and no aortic enlargement. Extremities are nonedematous and both femoral and pedal pulses are normal. - Labs CBC & Chem 7: 03/04/17 10:21 03/04/17 10:21 Labs: Microbiology - Last 24 Hours (Table) 03/02/17 13:30 Gram Stain - Final Bronchial Washings - Right Bronchial Washings Culture - Final Assessment and Plan Plan: Assessment 1 acute COPD exacerbation , improving slowly, status post bronchoscopy 200 bronchioloalveolar lavage and removal of mucous plugs and all of the cultures of been negative. 2 advanced COPD with a baseline FEV1 of 33% of predicted 3 obstructive sleep apnea maintained on CPAP therapy 4 aortic aneurysm 5 prostate cancer Plan Continue the Levaquin after completing a ten-day course. Continue the DuoNeb nebulized treatments around the clock. Continue the prednisone taper. Continue theophylline. Discharge planning is in progress.
[2017-03-05 17:15] VITALS: PULSE 100
--- NOTE | 2017-03-07 08:59 | DS ---
DATE OF ADMISSION: 02/20/2017 DATE OF DISCHARGE: 03/05/2017 FINAL DIAGNOSES: 1. Right lower lobe pneumonia suspect gram-negative organism, present on admission. 2. Acute severe chronic obstructive pulmonary disease exacerbation in an ex-smoker. 3. Obstructive sleep apnea, uses CPAP machine. 4. Prostate cancer in a wait and watch process. 5. Ascending aortic aneurysm 4.2 cm. 6. Restless leg syndrome. 7. Anxiety not otherwise specified. 8. Pneumonia causing sepsis with temperature 101.6 and heart rate of 105, present on admission. 9. Acute hypoxic respiratory failure, present on admission with a pulse ox of 89% on 3 liters and respiration of 26. HOSPITAL COURSE: This patient who is a smoker presented with severe chronic obstructive pulmonary disease exacerbation and pneumonia, was not doing too well. Had to undergo bronchoscopy with lavage to which he did feel a bit better. Patient easily gets short-winded. Patient is ( ) oxygen, has been on oral prednisone for the last 3 days. Patient will follow up with Dr. Frost in the office. On exam. LUNGS: Diminished breath sounds. CARDIOVASCULAR: First and second sounds normal. PSYCH: Some anxiety is present. DISCHARGE MEDICATIONS: 1. Xanax 0.25 p.o. t.i.d. p.r.n. 2. Aspirin 81 mg p.o. daily. 3. Vitamin D3 1000 units p.o. daily. 4. Singulair 10 mg p.o. daily. 5. Spiriva 1 capsule p.o. daily. 6. Mucinex 600 mg p.o. daily. 7. ( ) cream 0.5 mg p.o. q.h.s. 8. Symbicort 160/4.5, 2 puffs b.i.d. 9. Xopenex 2 puffs q.i.d. p.r.n. 10. Edgar spray p.r.n. 11. Pulmicort 1 mg nebulizer b.i.d. 12. Xopenex nebulizer 1.2 mg q.i.d. 13. Levaquin 750 mg a day for 5 days. 14. Claritin 10 mg a day. 15. Afrin nasal spray. 16. Magdy-24 300 mg p.o. daily. 17. Prednisone 40 mg a day until he follows with Dr. Frost. Follow with Dr. Sanchez in one week. Follow with Dr. Frost in 3 days. Home oxygen to be discharged on 2 or 3 liters.
== END 2017-03-05 18:29 | disposition home or self-care (01) | DRG 166 ==
LOC: EC 10:58 → 4MS4W 12:52
PROVIDERS: ADMIT Hospitalist; ATTEND Hospitalist
PROC: 0BJ08ZZ Inspection of Tracheobronchial Tree, Via Natural or Artificial Opening Endoscopic (ICD-10-PCS; 2017-02-28)
PROC: 0BCB8ZZ Extirpation of Matter from Left Lower Lobe Bronchus, Via Natural or Artificial Opening Endoscopic (ICD-10-PCS; 2017-03-02)
PROC: 0BC48ZZ Extirpation of Matter from Right Upper Lobe Bronchus, Via Natural or Artificial Opening Endoscopic (ICD-10-PCS; 2017-03-02)
PROC: 0BC88ZZ Extirpation of Matter from Left Upper Lobe Bronchus, Via Natural or Artificial Opening Endoscopic (ICD-10-PCS; 2017-03-02)
PROC: 0BC58ZZ Extirpation of Matter from Right Middle Lobe Bronchus, Via Natural or Artificial Opening Endoscopic (ICD-10-PCS; 2017-03-02)
PROC: 0BC38ZZ Extirpation of Matter from Right Main Bronchus, Via Natural or Artificial Opening Endoscopic (ICD-10-PCS; 2017-03-02)
PROC: 0BC78ZZ Extirpation of Matter from Left Main Bronchus, Via Natural or Artificial Opening Endoscopic (ICD-10-PCS; 2017-03-02)
PROC: 0BC68ZZ Extirpation of Matter from Right Lower Lobe Bronchus, Via Natural or Artificial Opening Endoscopic (ICD-10-PCS; 2017-03-02)
PROC: 0BBM8ZX Excision of Bilateral Lungs, Via Natural or Artificial Opening Endoscopic, Diagnostic (ICD-10-PCS; principal; 2017-03-02 07:30)
DX: J44.0 Chronic obstructive pulmonary disease with (acute) lower respiratory infection (principal); J15.6 Pneumonia due to other Gram-negative bacteria; J96.21 Acute and chronic respiratory failure with hypoxia; A41.9 Sepsis, unspecified organism; J98.11 Atelectasis; J44.1 Chronic obstructive pulmonary disease with (acute) exacerbation; I71.2 Thoracic aortic aneurysm, without rupture; Z99.81 Dependence on supplemental oxygen; T17.990A Other foreign object in respiratory tract, part unspecified in causing asphyxiation, initial encounter; C61 Malignant neoplasm of prostate; G47.33 Obstructive sleep apnea (adult) (pediatric); G25.81 Restless legs syndrome; F41.9 Anxiety disorder, unspecified; F17.200 Nicotine dependence, unspecified, uncomplicated; I49.40 Unspecified premature depolarization; Z98.42 Cataract extraction status, left eye; Z98.41 Cataract extraction status, right eye; Z79.51 Long term (current) use of inhaled steroids; Z79.82 Long term (current) use of aspirin; Z79.899 Other long term (current) drug therapy; Z82.5 Family history of asthma and other chronic lower respiratory diseases
CPT/HCPCS: 31624; 36415; 71020; 80048; 80053; 81003; 82550; 82553; 83036; 83605; 83735; 83880; 84484; 85025; 85027; 85610; 85730; 87040; 87070; 87086; 87205; 87502; 88108; 88305; 93005; 94640; 94660; 94760

== ENCOUNTER → 2017-03-09 | Outpatient (CLI) | payer MEDICARE, BC | END | disposition home or self-care (01) | LOC: LABWHC1 14:01 | PROVIDERS: ATTEND Radiology Radiation Oncology | DX: C61 Malignant neoplasm of prostate (principal) | CPT/HCPCS: 36415; 84153 ==

== ENCOUNTER → 2017-04-07 | Outpatient (CLI) | payer MEDICARE, BC ==
--- NOTE | 2017-04-07 15:35 | US ---
EXAMINATION TYPE: US venous doppler duplex LE BI DATE OF EXAM: 04/07/2017 3:18 PM COMPARISON: NONE CLINICAL HISTORY: R60.9 Edema. Bilateral foot and ankle edema since out of hospital for pneumonia SIDE PERFORMED: Bilateral TECHNIQUE: The lower extremity deep venous system is examined utilizing real time linear array sonog lea with graded compression, doppler sonography and color-flow sonography. VESSELS IMAGED: Common Femoral Vein Deep Femoral Vein Greater Saphenous Vein * Femoral Vein Popliteal Vein Small Saphenous Vein * Proximal Calf Veins (* superficial vessels) Right Leg: Right CFV stuck valve is noted at anterior wall just proximal to upper GSV, otherwise, ne gative for DVT Left Leg: Negative for DVT Bilateral ankle edema channels are noted.Grayscale, color doppler, spectral doppler imaging performed of the deep veins of the lower extremities. There is normal flow, compressibility, vascular wavefor ms bilaterally. IMPRESSION: No ultrasound evidence for acute DVT in either lower extremity.
--- NOTE | 2017-04-09 12:42 | ECHOF ---
Referral Reason:R60.9 Edema MEASUREMENTS -------- HEIGHT: 167.6 cm WEIGHT: 72.6 kg BP: 142/94 IVSd: 1.5 cm (0.6 - 1.1) LVIDd: 3.6 cm (3.9 - 5.3) LVPWd: 1.3 cm (0.6 - 1.1) LVIDs: 2.6 cm RVIDd: 4.4 cm (< 3.3) Ao Diam: 4.4 cm (2.0 - 3.7) AV Cusp: 2.0 cm (1.5 - 2.6) RAP: 5.00 mmHg RVSP: 46.85 mmHg FINDINGS -------- Resting tachycardia (HR>100bpm). This was a technically difficult study with suboptimal views. Parasternal and apical views unable to be obtained. Entire study performed from subcostal window. There is mild concentric left ventricular hypertrophy. Overall left ventricular systolic function is normal with, an EF between 60 - 65 %. The right ventricle is moderately enlarged. The left atrial size is normal. The right atrium is normal in size. Aortic valve is trileaflet and is mildly thickened. There is no evidence of aortic regurgitation. There is no evidence of aortic stenosis. The mitral valve leaflets are mildly thickened. There is trace mitral regurgitation. Mild tricuspid regurgitation present. There is mild pulmonary hypertension. The right ventricular systolic pressure, as measured by Doppler, is 46.85mmHg. The pulmonic valve was not well visualized. Supra Sternal not well visulized. Severe aortic root dilation at the sinus of valsava, measuring 4.5-5.1 cm. Cannot rule out ascending aorta dilation. Further testing recommended. Normal inferior vena cava with normal inspiratory collapse consistent with estimated right atrial pressure of 5 mmHg. The pericardium is normal. There is no pericardial effusion. CONCLUSIONS -------- 1. Resting tachycardia (HR>100bpm). 2. There is mild pulmonary hypertension. 3. The right ventricular systolic pressure, as measured by Doppler, is 46.85mmHg. 4. The pulmonic valve was not well visualized. 5. Supra Sternal not well visulized. 6. Severe aortic root dilation at the sinus of valsava, measuring 4.5-5.1 cm. 7. Cannot rule out ascending aorta dilation. Further testing recommended. 8. There is no pericardial effusion. 9. This was a technically difficult study with suboptimal views. 10. Parasternal and apical views unable to be obtained. Entire study performed from subcostal window. 11. There is mild concentric left ventricular hypertrophy. 12. Overall left ventricular systolic function is normal with, an EF between 60 - 65 %. 13. Aortic valve is trileaflet and is mildly thickened. 14. The mitral valve leaflets are mildly thickened. 15. There is trace mitral regurgitation. 16. Mild tricuspid regurgitation present. FASHION COORDINATOR: Que Estevez RDCS
== END | disposition home or self-care (01) ==
LOC: RADUSMAIN 14:12
PROVIDERS: ATTEND Family Medicine
DX: I27.2 Other secondary pulmonary hypertension (principal); R00.0 Tachycardia, unspecified; I51.7 Cardiomegaly; I08.3 Combined rheumatic disorders of mitral, aortic and tricuspid valves
CPT/HCPCS: 93306; 93970

== ENCOUNTER → 2017-04-12 | Outpatient (CLI) | payer MEDICARE, BC | END | disposition home or self-care (01) | LOC: LABWHC1 14:17 | PROVIDERS: ATTEND Radiology Radiation Oncology | DX: C61 Malignant neoplasm of prostate (principal) | CPT/HCPCS: 36415; 84153 ==

== ENCOUNTER → 2017-05-18 | Outpatient (CLI) | payer MEDICARE, BC ==
[2017-05-18 14:54] LABS: Anion Gap 10 mmol/L; Blood Urea Nitrogen 20 mg/dL (9-20); Calcium 9.4 mg/dL (8.4-10.2); Carbon Dioxide 26 mmol/L (22-30); Chloride 103 mmol/L (98-107); Glucose 105 mg/dL (74-99); Non-African American GFR(MDRD) >60 (>60 ml/min/1.73 sqM); Potassium 4.3 mmol/L (3.5-5.1); Sodium 139 mmol/L (137-145)
== END | disposition home or self-care (01) ==
LOC: LABWHC1 14:20
PROVIDERS: ATTEND Internal Medicine Cardiovascular Disease
DX: R60.0 Localized edema (principal)
CPT/HCPCS: 36415; 80048

== ENCOUNTER → 2017-11-27 | Outpatient (CLI) | payer MEDICARE, BC | END | disposition home or self-care (01) | LOC: LABWHC1 16:41 | PROVIDERS: ATTEND Radiology Radiation Oncology | DX: C61 Malignant neoplasm of prostate (principal) | CPT/HCPCS: 36415; 84153 ==

== ENCOUNTER 2018-02-07 10:10 | Day surgery (SDC) | payer MEDICARE, BC ==
[2018-02-05 14:24] VITALS: BMI 27.4
[~2018-02-07 10:10] MED LIST: ALBUTEROL NEB (CONC) 2.5 MG/0.5 ML INHALATION ONE; LACTATED RINGERS 1,000 ML IV ONE; LACTATED RINGERS 1,000 ML IV SCH; LIDOCAINE 2% (PF) 20 MG/ML 2 ML AMP INHALATION ONE
[2018-02-07] MEDS ORDERED: LIDOCAINE 1% 20 ML VIAL (10MG/ML) FOR IV START INTRADERMA ONE (10:51)
[2018-02-07 11:06] VITALS: TEMP 98.1
[2018-02-07 11:26] LABS: Glucose,Whole Blood 93 mg/dL (75-99)
[2018-02-07] MEDS ORDERED: LIDOCAINE 1% INJ 10MG/ML (20 ML MDV) ONE (12:01)
[2018-02-07] MEDS ORDERED: MIDAZOLAM 2 MG/2 ML VIAL ONE (12:01)
[2018-02-07] MEDS ORDERED: GLYCOPYRROLATE 0.2 MG/ML 2 ML VIAL ONE (12:01)
[2018-02-07] MEDS ORDERED: KETAMINE 10 MG/ML 20 ML VIAL ONE (12:01)
[2018-02-07] MEDS ORDERED: PROPOFOL 10 MG/ML 20 ML VIAL IV ONE (12:01)
[2018-02-07] MEDS ORDERED: LIDOCAINE 2% INJ 20 MG/ML INTRATRACH ONE (12:50)
--- NOTE | 2018-02-07 13:17 | PCN ---
PROCEDURE NOTE The operative report is bronchoscopy and bronchoalveolar washing and lavage. PREOPERATIVE DIAGNOSIS: Chronic obstructive pulmonary disease, chronic persistent cough, unable to clear secretions. POSTOPERATIVE DIAGNOSIS: Chronic obstructive pulmonary disease, chronic persistent cough, unable to clear secretions. ANESTHESIA USED: IV conscious sedation, please refer to STATION ENGINEER documentation. PROCEDURE: The patient was placed in a supine position, O2 was applied via nasal cannula, we monitored his O2 saturation continuously, blood pressure was intermittently monitored, and cardiac rhythm was continuously monitored. After adequate IV conscious sedation, 2 mL of lidocaine were instilled into the right naris, and the bronchoscope was advanced through the right naris down to the area of the vocal cords. There was some whitish plaques noted over the posterior aspect of the tongue, and the vocal cords were visualized. Lidocaine was applied over the vocal cords, and the bronchoscope was advanced further down below the vocal cords. Thorough examination was done of the trachea, zan, right upper lobe, right middle lobe, right lower lobe, left upper lobe lingula and left lower lobe. There was evidence of thick purulent secretions noted in most of the airways, but more so in the left lower lobe, right middle lobe and right lower lobe. Lavage of these areas was done, and random bronchial washing was collected from all these areas, and sent for different diagnostic studies. The procedure was well tolerated, no evidence of any immediate complications. The fluid was sent for different diagnostic studies. MMODL / IJN: [id number] /
[2018-02-07 14:34] VITALS: BP 125/85; PULSE 88; RESP 18
[2018-02-07 16:29] LABS: Appearance,BF Cloudy; Nucleated Cells, Body Fluid 50 /uL; RBC, Body Fluid 100 /uL
[2018-02-07 16:50] LABS: Mononuclear WBC,Body Fluid 26 %; Polynuclear WBC,Body Fluid 74 %; Total Cells Counted,Body Fluid 100
== END 2018-02-07 14:38 | disposition home or self-care (01) ==
LOC: ORWHC2ENDO 10:10
PROVIDERS: ATTEND Internal Medicine
DX: J44.1 Chronic obstructive pulmonary disease with (acute) exacerbation (principal); J20.8 Acute bronchitis due to other specified organisms; J44.0 Chronic obstructive pulmonary disease with (acute) lower respiratory infection; I10 Essential (primary) hypertension; G47.33 Obstructive sleep apnea (adult) (pediatric); F41.1 Generalized anxiety disorder; K21.9 Gastro-esophageal reflux disease without esophagitis; I25.10 Atherosclerotic heart disease of native coronary artery without angina pectoris; E78.00 Pure hypercholesterolemia, unspecified; J98.11 Atelectasis; C61 Malignant neoplasm of prostate; G25.81 Restless legs syndrome; Z87.891 Personal history of nicotine dependence; Z88.1 Allergy status to other antibiotic agents; Z91.041 Radiographic dye allergy status; Z79.52 Long term (current) use of systemic steroids; Z79.51 Long term (current) use of inhaled steroids; Z79.82 Long term (current) use of aspirin; Z79.899 Other long term (current) drug therapy; Z83.3 Family history of diabetes mellitus; Z82.49 Family history of ischemic heart disease and other diseases of the circulatory system; Z99.81 Dependence on supplemental oxygen; Z99.89 Dependence on other enabling machines and devices
CPT/HCPCS: 94640; 87798 ×3; 87496; 87498; 87529; 88108; 88305; 89050; 87252; 87502; 87634; 87070; 87205; 87116; 87102; 87206; 31624; J2001 ×3; J2250; J2704

== ENCOUNTER → 2018-02-27 | Outpatient (CLI) | payer MEDICARE, BC | LOC: LABWHC1 10:01 | PROVIDERS: ATTEND Radiology Radiation Oncology | DX: C61 Malignant neoplasm of prostate (principal) | CPT/HCPCS: 36415; 84153 ==

== ENCOUNTER → 2018-02-27 | Outpatient (CLI) | payer MEDICARE, BC ==
--- NOTE | 2018-02-27 13:03 | US ---
EXAMINATION TYPE: US venous doppler duplex LE DATE OF EXAM: 02/27/2018 11:19 AM COMPARISON: US CLINICAL HISTORY: R60.0 localized edema. SIDE PERFORMED: Bilateral TECHNIQUE: The lower extremity deep venous system is examined utilizing real time linear array sonog lea with graded compression, doppler sonography and color-flow sonography. VESSELS IMAGED: External Iliac Vein (EIV) Common Femoral Vein Deep Femoral Vein Greater Saphenous Vein * Femoral Vein Popliteal Vein Small Saphenous Vein * Proximal Calf Veins (* superficial vessels) Grayscale, color doppler, spectral doppler imaging performed of the deep veins of the lower extremiti es. There is normal flow, compressibility, vascular waveforms. Right Leg: Negative for DVT Left Leg: Negative for DVT IMPRESSION: No sonographic evidence of deep venous thrombosis within the lower extremities.
== END | disposition home or self-care (01) ==
LOC: RADUSWWP 10:10
PROVIDERS: ATTEND Family Medicine
DX: R60.0 Localized edema (principal)
CPT/HCPCS: 93970

== ENCOUNTER → 2018-05-14 | Outpatient (CLI) | payer MEDICARE, BC | END | disposition home or self-care (01) | LOC: LABWHC1 09:53 | PROVIDERS: ATTEND Radiology Radiation Oncology | DX: C61 Malignant neoplasm of prostate (principal) | CPT/HCPCS: 36415; 84153 ==

== ENCOUNTER → 2018-06-21 | Outpatient (CLI) | payer MEDICARE, BC ==
--- NOTE | 2018-06-21 15:08 | XR ---
EXAMINATION TYPE: XR ribs LT DATE OF EXAM: 06/21/2018 COMPARISON: None HISTORY: Fall 6 days ago pain lower left ribs TECHNIQUE: Left ribs are examined in 2 projections. FINDINGS: There are fractures of the left posterior lateral seventh eighth and ninth ribs. No additio nal fractures are evident. No pneumothorax is evident. IMPRESSION: 1. Fractures of the posterior lateral seventh eighth and ninth lateral ribs.
--- NOTE | 2018-06-21 15:15 | XR ---
EXAMINATION TYPE: XR chest 2V DATE OF EXAM: 06/21/2018 COMPARISON: Left ribs study same date INDICATION: Fall, pain TECHNIQUE: Frontal and lateral views of the chest are obtained. FINDINGS: The heart size is normal. The pulmonary vasculature is normal. The lungs are clear. No pneumothorax is evident. Patient's left seventh and eighth rib fractures are identified. The left ninth rib fracture from the rib study is not well visualized. IMPRESSION: 1. Left rib fractures.
== END | disposition home or self-care (01) ==
LOC: RADXRMAIN 11:38
PROVIDERS: ATTEND Internal Medicine
DX: S22.42XA Multiple fractures of ribs, left side, initial encounter for closed fracture (principal); J44.9 Chronic obstructive pulmonary disease, unspecified
CPT/HCPCS: 71046

== ENCOUNTER 2018-06-22 21:50 | Inpatient (IN) | payer MEDICARE, BC ==
[2018-06-22] MEDS: LIDOCAINE 5% PATCH TOPICAL SCH (23:01)
--- NOTE | 2018-06-22 23:01 | XR ---
EXAMINATION TYPE: XR chest 2V DATE OF EXAM: 06/22/2018 COMPARISON: 06/21/2018 HISTORY: Short of breath TECHNIQUE: Frontal and lateral views of the chest are obtained. FINDINGS: There is some patchy infiltrate and atelectasis at the lung bases. There is no heart failu re. Heart size is normal. Thoracic aorta is atheromatous. There are chest leads. IMPRESSION: mild infiltrate and atelectasis at the lung bases is slightly worse than exam yesterday. No heart failure seen.
[2018-06-22 23:18] LABS: Calcium 8.9 mg/dL (8.4-10.2); Potassium 3.6 mmol/L (3.5-5.1)
[2018-06-22 23:19] LABS: Basophils % (A) 0 %; Eosinophils % (A) 1 %; HCT 47.1 % (39.0-53.0); HGB 15.1 gm/dL (13.0-17.5); Lymphocytes # (A) 0.5 k/uL (1.0-4.8); Lymphocytes % (A) 8 %; MCH 31.3 pg (25.0-35.0); MCV 97.8 fL (80.0-100.0); Mean Platelet Volume 7.5; Monocytes # (A) 0.6 k/uL (0-1.0); Monocytes % (A) 9 %; Neutrophils # (A) 5.1 k/uL (1.3-7.7); Neutrophils % (A) 79 %; Platelet Count 237 k/uL (150-450); RBC 4.81 m/uL (4.30-5.90); RDW 14.1 % (11.5-15.5); WBC 6.5 k/uL (3.8-10.6)
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
[2018-06-22] MEDS ORDERED: SODIUM CHLORIDE 0.9% 1,000 ML IV STA (23:37)
[2018-06-22] MEDS ORDERED: NALOXONE 0.4 MG/ML 1 ML VIAL IV PRN (23:38)
[2018-06-22] MEDS ORDERED: ACETAMINOPHEN TAB 500 MG TAB PO PRN (23:39)
[2018-06-22] MEDS ORDERED: AMPICILLIN-SULBACTAM 3 GM in SODIUM CHLORIDE 0.9% 100 ML IVPB STA (23:42)
[2018-06-23] MEDS: HEPARIN SODIUM,PORCINE 5,000 UNIT/ML 1 ML VIAL SQ SCH ×3 (01:25→18:01)
[2018-06-23] MEDS ORDERED: FUROSEMIDE 40 MG TAB PO SCH (09:00)
[2018-06-23] MEDS: ASPIRIN 81 MG PO SCH (09:32)
[2018-06-23] MEDS: FAMOTIDINE 20 MG TAB PO SCH ×2 (09:33→21:30)
[2018-06-23] MEDS: HYDROmorphone 1 MG/ML 1 ML SYRINGE IVP PRN (12:23)
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
--- NOTE | 2018-06-23 15:54 | US ---
EXAMINATION TYPE: US kidneys/renal and bladder DATE OF EXAM: 06/23/2018 COMPARISON: NONE CLINICAL HISTORY: renal failure. EXAM MEASUREMENTS: Right Kidney: 9.4 x 4.8 x 5.0 cm Left Kidney: 11.9 x 5.8 x 5.3 cm Right Kidney: No hydronephrosis or masses seen Left Kidney: No hydronephrosis or masses seen Bladder: wnl Bilateral Jets seen: No No suspicious shadowing renal calculi are identified IMPRESSION: Normal renal ultrasound
[2018-06-23] MEDS ORDERED: guaiFENesin 600 MG TABLET.ER PO SCH (16:18)
[2018-06-23] MEDS: IPRATROPIUM-ALBUTEROL 3 ML NEB INHALATION SCH ×2 (16:25→20:32)
[2018-06-23] MEDS: MONTELUKAST 10 MG TAB PO SCH (18:16)
[2018-06-23] MEDS: PIPERACILLIN-TAZOBACTAM 3.375 GM in DEXTROSE/WATER 1 50ML.BAG IVPB SCH (18:16)
[2018-06-23] MEDS: TRIAMCINOLONE 0.1% CREAM 80 GM TUBE TOPICAL SCH ×2 (18:47→21:30)
[2018-06-23] MEDS: BUDESONIDE 1 MG/2 ML NEBU INHALATION SCH (20:32)
[2018-06-23] MEDS: FORMOTEROL FUMARATE 20 MCG/2 ML NEBU INHALATION SCH (20:35)
[2018-06-23] MEDS: LIDOCAINE 5% PATCH TOPICAL SCH (21:29)
[2018-06-23] MEDS: THEOPHYLLINE 24 HOUR 200 MG CAP.ER.24H PO SCH (21:30)
[2018-06-23] MEDS: guaiFENesin 600 MG TABLET.ER PO SCH (21:30)
[2018-06-23] MEDS: OXYMETAZOLINE 0.05% NASL SPRAY 1 SPRAY BOTTLE EA NOSTRIL SCH (21:31)
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
[2018-06-24] MEDS: IPRATROPIUM-ALBUTEROL 3 ML NEB INHALATION SCH ×7 (00:53→23:39)
[2018-06-24] MEDS: PIPERACILLIN-TAZOBACTAM 3.375 GM in DEXTROSE/WATER 1 50ML.BAG IVPB SCH ×3 (01:04→16:47)
[2018-06-24] MEDS: HEPARIN SODIUM,PORCINE 5,000 UNIT/ML 1 ML VIAL SQ SCH ×3 (01:05→16:47)
[2018-06-24] MEDS: HYDROmorphone 1 MG/ML 1 ML SYRINGE IVP PRN ×2 (06:21→15:38)
[2018-06-24 07:29] LABS: Basophils % (A) 1 %; Eosinophils # (A) 0.2 k/uL (0-0.7); Eosinophils % (A) 3 %; HCT 49.9 % (39.0-53.0); HGB 15.6 gm/dL (13.0-17.5); Lymphocytes # (A) 0.9 k/uL (1.0-4.8); Lymphocytes % (A) 14 %; MCHC 31.2 g/dL (31.0-37.0); MCV 99.4 fL (80.0-100.0); Mean Platelet Volume 7.2; Monocytes # (A) 0.5 k/uL (0-1.0); Monocytes % (A) 8 %; Neutrophils # (A) 4.4 k/uL (1.3-7.7); Neutrophils % (A) 72 %; Platelet Count 254 k/uL (150-450); RBC 5.02 m/uL (4.30-5.90); RDW 14.1 % (11.5-15.5); WBC 6.2 k/uL (3.8-10.6)
[2018-06-24] MEDS: BUDESONIDE 1 MG/2 ML NEBU INHALATION SCH ×2 (07:43→20:24)
[2018-06-24] MEDS: FORMOTEROL FUMARATE 20 MCG/2 ML NEBU INHALATION SCH ×2 (07:43→20:24)
[2018-06-24 07:48] LABS: Calcium 8.6 mg/dL (8.4-10.2)
[2018-06-24] MEDS: MONTELUKAST 10 MG TAB PO SCH (08:48)
[2018-06-24] MEDS: FAMOTIDINE 20 MG TAB PO SCH ×2 (08:48→20:53)
[2018-06-24] MEDS: guaiFENesin 600 MG TABLET.ER PO SCH ×2 (08:49→20:54)
[2018-06-24] MEDS: ASPIRIN 81 MG PO SCH (08:49)
[2018-06-24] MEDS: THEOPHYLLINE 24 HOUR 200 MG CAP.ER.24H PO SCH (08:49)
[2018-06-24] MEDS ORDERED: Potassium Replacement Protocol 1 EACH MISC MISCELLANE PRN (09:45)
[2018-06-24] MEDS: OXYMETAZOLINE 0.05% NASL SPRAY 1 SPRAY BOTTLE EA NOSTRIL SCH ×2 (10:11→20:55)
[2018-06-24] MEDS: TRIAMCINOLONE 0.1% CREAM 80 GM TUBE TOPICAL SCH ×3 (10:12→20:55)
[2018-06-24] MEDS: POTASSIUM CHLORIDE ER 20 MEQ TAB.ER PO SCH ×2 (10:13→11:17)
[2018-06-24] MEDS: MAGNESIUM HYDROXIDE 2,400 MG/10 ML CUP PO PRN (10:13)
--- NOTE | 2018-06-24 10:38 | P.PN ---
Subjective Progress Note Date: 06/24/18 Principal diagnosis: Dyspnea, related to chest wall pain secondary to rib fractures. Traumatic injury related to fall, COPD This is a 70-year-old male patient with known history of advanced oxygen- dependent COPD who is coming to the hospital because of pain in his chest and some shortness of breath. The patient is very well-known to me. He is a patient was being followed up in our office. Of taking care of this patient in regards to his COPD and his last hospitalization was in 2017 for an acute COPD exacerbation. He is oxygen dependent. The patient was in a trip to [place] and he had a what seems to be a syncopal episode. Is not clear whether this was a true syncope versus a fall. The patient was hospitalized in a hospital in [place]. The patient was diagnosed having multilevel rib fracture. The patient had workup for his syncope and workup apparently was negative and the patient was discharged home. Within a few days of discharge, the patient continued to have chest pain. The pain medications that was offered was not enough. The sample was getting significantly uncomfortable and more short of breath and he was also getting some cough and congestion and he was unable to His respiratory secretions and for that reason he decided to come into the hospital. In the hospital the PA chest x-ray showed no acute abnormalities to indicate rib fractures. There was evidence of pneumonia. The rib views were obtained and the patient was found to have fractures of the posterior lateral seventh and eighth and ninth rib on the left. He has a lidocaine patch applied to that area. He is also taking oxycodone 15 mg every 4 hours. The patient is still having pain and the pain is quite extensive and is estimated to be around 10 out of 10 in severity. Unable to use the incentive spirometer. He is able to speak full sentences. Family is at the bedside. No significant chest wall deformity or bruising on inspection. No hemoptysis. No pleurisy. No angina. No swelling lower extremities. No recurrent episodes of syncope since then. No focal neurological deficit. No seizure activity. On 06/24/2018 patient seen in follow-up on surgical floor. He states he is having significant amount of chest wall pain, exacerbated by any movement and ambulation. Patient is receiving a combination of OxyContin on as-needed basis , and Dilaudid for breakthrough pain, he only received 1 dose of Dilaudid added last night, now his pain seems to be very severe. He is short of breath related to limitation of his respiratory effort and air to pain. He is not able to cough effectively. He is compliant with his incentive spirometry, and is able to achieve 1250 on it today. Lung sounds reveal a scattered rhonchi. His FiO2 is currently at 4 L per nasal cannula, he is afebrile, slightly tachycardic with a rate of 103 BPM. Mildly short of breath, with conversation. His labs were reviewed, shows the CBC of 6.2, hemoglobin of 15.6, potassium is 3.0, chloride is 97, CO2 is 39, BUN is 28, creatinine is 1.1. Patient is receiving nebulized bronchodilators, Singulair, Zosyn, and theophylline. As he will be replaced per protocol, and his oxycodone will be switched to 50 mg every 6 hours in a scheduled basis or better pain control. Objective - Vital Signs Vital signs: Vital Signs Temp 98.9 F 06/23/18 19:00 Pulse 94 06/24/18 08:05 Resp 16 06/23/18 20:00 BP 114/71 06/23/18 19:00 Pulse Ox 89 L 06/23/18 19:00 Intake & Output 06/23/18 06/24/18 06/24/18 18:59 06:59 18:59 Intake Total 0 1742.5 Balance 0 1742.5 Weight 76.204 kg Intake: Intake, IV Titration 962.5 Amount Ampicillin-Sulbactam 3 gm 100 In Sodium Chloride 0.9% 100 ml @ 200 mls/hr IVPB ONCE [facility] Rx#:[id number] Lactated Ringers 1,000 ml 800 @ 100 mls/hr IV .Q10H [facility] Rx#:[id number] Piperacillin-Tazobactam 3 62.5 .375 gm In Dextrose/Water 1 50ml.bag @ 12.5 mls/hr IVPB Q8HR [facility] Rx#: [id number] Oral 0 780 Other: Voiding Method Toilet Toilet # Voids 2 3 - Exam Gen. appearance the patient mild pain and the stress related to the pain. Head exam was generally normal. There was no scleral icterus or corneal arcus. Mucous membranes were moist. Neck was supple and without jugular venous distension, thyromegaly, or carotid bruits. Carotids were easily palpable bilaterally. There was no adenopathy. Lungs sounds are diminished bilaterally along with scattered expiratory wheezes and rhonchi throughout the lung his bilaterally. Breath sounds are diminished in lung bases bilaterally. No skeletal deformities at this point in time. Cardiac exam revealed the PMI to be normally situated and sized. The rhythm was regular and no extrasystoles were noted during several minutes of auscultation. The first and second heart sounds were normal and physiologic splitting of the second heart sound was noted. There were no murmurs, rubs, clicks, or gallops. Abdominal exam revealed normal bowel sounds. The abdomen was soft, non-tender, and without masses, organomegaly, or appreciable enlargement of the abdominal aorta. Examination of the extremities revealed easily palpable radial, femoral and pedal pulses. There was no cyanosis, clubbing or edema. Examination of the skin revealed no evidence of significant rashes, suspicious appearing nevi or other concerning lesions. Neurologically awake and alert and there is no focal neurological deficit. - Labs CBC & Chem 7: 06/24/18 06:28 06/24/18 06:28 Labs: Abnormal Lab Results - Last 24 Hours (Table) 06/24/18 06/24/18 Range/Units 06:28 06:28 Lymphocytes # 0.9 L (1.0-4.8) k/uL Potassium 3.0 L (3.5-5.1) mmol/L Chloride 97 L (98-107) mmol/L Carbon Dioxide 39 H (22-30) mmol/L BUN 28 H (9-20) mg/dL Assessment and Plan Plan: Assessment: 1 chest wall pain related to 3 level rib fracture on the left involving the seventh eighth and ninth rib. This is related to a traumatic injury/fall which came in the setting of a syncope. 2 advanced oxygen-dependent COPD with an FEV1 of 33% of predicted 3 chronic hypoxic respiratory failure secondary to above 4 shortness of breath and chest wall pain secondary to follow left-sided rib fractures 5 syncope, exact circumstances is not clear, in fact is not even clear the patient had a syncope versus a fall and for that reason the records will be obtained from [facility] and [place] for further insight on this syncopal episode. 6 prostate cancer 7 obstructive sleep apnea 8 ascending aortic aneurysm measuring 4.2 cm in size on prior CAT scan in the most recent echocardiogram from 2017 showed a dilatation of the aortic root measuring 4.5 x 5.1 cm in size. 9 impaired performance and functional capacity secondary to advanced COPD Plan: Patient is having significant amount of chest wall discomfort which is limiting patient's ability to take deep breaths, and cough effectively. We will switch to oxycodone to the scheduled basis at 15 mg every 6 hours, and continue with Dilaudid for breakthrough pain. No recurrence of syncope, provide assistance and supervision with ambulation to the bathroom. Continue encouraging incentive spirometry. Continue nebulized bronchodilators. Replace serum potassium per protocol. We'll continue to follow I performed a history & physical examination of the patient and discussed their management with my nurse practitioner, Jody Johnson. I reviewed the nurse practitioner's note and agree with the documented findings and plan of care. Lung sounds are positive for scat wheezes and scattered rhonchi. The findings and the impression was discussed with the patient. I attest to the documentation by the nurse practitioner. Time with Patient: Less than 30
--- NOTE | 2018-06-24 16:52 | PN ---
PROGRESS NOTE DATE OF SERVICE: 06/24/2018. PRESENTING COMPLAINT: Short of breath and tired. INTERVAL HISTORY: Patient admitted with bilateral pneumonia with recent multiple bilateral rib fractures and also acute renal failure. The patient has significant pain in bilateral ribs through to back. was added yesterday, that had just been delivered to the floor. The patient is tolerating his diet. at the bedside. The patient is making fair urine. REVIEW OF SYSTEMS: Done for constitutional, cardiovascular, GI, pulmonary; relevant findings as above. CURRENT MEDICATIONS: Reviewed that include lactated Ringer's and IV Zosyn. EXAMINATION: Temperature 98, pulse 92, respirations 18, blood pressure 139/91, pulse ox 98 percent on 4 L. GENERAL APPEARANCE: Lying in bed, awake, tired. EYES: Pupils equal. Conjunctivae normal. HEENT: External nose and ears normal. Oral cavity possible thrush. NECK: JVD not raised. Mass not palpable. Respiratory effort increased. LUNGS: Diminished breath sounds, prolonged expiration. CARDIOVASCULAR: First and second sounds. No edema. ABDOMEN: Soft, nontender. Liver and spleen not palpable. PSYCHIATRY: Alert and oriented x3. Mood and affect anxious-appearing. INVESTIGATIONS: White count 6.2, potassium 3, BUN 28, creatinine 1.10. ASSESSMENT: 1. Bilateral pneumonia, suspect gram-negative organism, slow to respond. 2. Multiple bilateral rib fractures causing pain secondary to fall. 3. Acute renal failure, probably acute tubular necrosis from using nonsteroidal Lasix, significantly improved. 4. Bilateral rib fracture secondary to fall. 5. Acute chronic obstructive pulmonary disease exacerbation in an ex-smoker. 6. Obstructive sleep apnea, uses CPAP machine. 7. Prostate cancer. 8. Ascending aortic aneurysm 4.2 cm. 9. Restless legs syndrome. 10.Acute hypoxic respiratory failure from underlying pneumonia and chronic obstructive pulmonary disease exacerbation. 11.Chronic hypoxic respiratory failure, on 4 L oxygen from underlying chronic obstructive pulmonary disease. 12.Anxiety, not otherwise specified. PLAN: Continue current medication and treatment plan. Once renal function is improved I can add some naproxen. We will stop that tonight. The patient's bicarb has come up rather nicely. Continue with IV antibiotics and breathing treatments. The 2D echocardiogram is awaited. Care was discussed with the patient and . Will follow. MMODL / IJN: [id number] /
[2018-06-24] MEDS: LACTATED RINGERS 1,000 ML IV SCH (17:38)
[2018-06-24] MEDS: LIDOCAINE 4% CREAM 5 GM TUBE TOPICAL SCH (17:38)
[2018-06-24] MEDS: LIDOCAINE 5% PATCH TOPICAL SCH (20:53)
[2018-06-25] MEDS: PIPERACILLIN-TAZOBACTAM 3.375 GM in DEXTROSE/WATER 1 50ML.BAG IVPB SCH ×4 (00:34→23:21)
[2018-06-25] MEDS: HEPARIN SODIUM,PORCINE 5,000 UNIT/ML 1 ML VIAL SQ SCH ×4 (00:35→23:21)
[2018-06-25] MEDS: FORMOTEROL FUMARATE 20 MCG/2 ML NEBU INHALATION SCH ×2 (07:29→20:13)
[2018-06-25] MEDS: IPRATROPIUM-ALBUTEROL 3 ML NEB INHALATION SCH ×6 (07:29→23:06)
[2018-06-25] MEDS: BUDESONIDE 1 MG/2 ML NEBU INHALATION SCH ×2 (07:30→20:12)
--- NOTE | 2018-06-25 07:32 | XR ---
EXAMINATION TYPE: XR chest 2V DATE OF EXAM: 06/25/2018 COMPARISON: 06/22/2018 HISTORY: Shortness of breath TECHNIQUE: Frontal and lateral views of the chest are obtained. FINDINGS: Scattered senescent parenchymal changes noted. Hyperinflation compatible with COPD. Mild persistent patchy density right medial lung base. Improved aeration left lung base. Small effusi ons are present. Heart size is stable. Mediastinal structures are stable and grossly unremarkable. No evidence for hilar prominence. Degenerative changes dorsal spine. IMPRESSION: 1. Mild persistent patchy density right medial lung base. Improved aeration left lung base. Small eff usions are present.
[2018-06-25 07:38] LABS: Basophils % (A) 1 %; Eosinophils # (A) 0.2 k/uL (0-0.7); Eosinophils % (A) 3 %; HCT 48.5 % (39.0-53.0); HGB 15.3 gm/dL (13.0-17.5); Lymphocytes # (A) 0.8 k/uL (1.0-4.8); Lymphocytes % (A) 12 %; MCH 31.6 pg (25.0-35.0); MCHC 31.5 g/dL (31.0-37.0); MCV 100.2 fL (80.0-100.0); Macrocytosis Slight; Mean Platelet Volume 7.1; Monocytes # (A) 0.5 k/uL (0-1.0); Monocytes % (A) 8 %; Neutrophils # (A) 4.9 k/uL (1.3-7.7); Neutrophils % (A) 75 %; Platelet Count 258 k/uL (150-450); RBC 4.84 m/uL (4.30-5.90); RDW 14.5 % (11.5-15.5); WBC 6.6 k/uL (3.8-10.6)
[2018-06-25 07:59] LABS: Anion Gap 3 mmol/L; Blood Urea Nitrogen 19 mg/dL (9-20); Calcium 8.4 mg/dL (8.4-10.2); Carbon Dioxide 36 mmol/L (22-30); Chloride 101 mmol/L (98-107); Glucose 102 mg/dL (74-99); Potassium 3.5 mmol/L (3.5-5.1); Sodium 140 mmol/L (137-145)
[2018-06-25] MEDS: HYDROmorphone 1 MG/ML 1 ML SYRINGE IVP PRN ×2 (08:08→18:08)
[2018-06-25] MEDS ORDERED: FUROSEMIDE 10 MG/ML 4 ML VIAL IV STA (08:08)
[2018-06-25] MEDS: MONTELUKAST 10 MG TAB PO SCH (09:17)
[2018-06-25] MEDS: guaiFENesin 600 MG TABLET.ER PO SCH ×2 (09:17→20:58)
[2018-06-25] MEDS: FAMOTIDINE 20 MG TAB PO SCH ×2 (09:17→20:58)
[2018-06-25] MEDS: ASPIRIN 81 MG PO SCH (09:17)
[2018-06-25] MEDS: POLYETHYLENE GLYCOL 3350 17 GM POWD.PACK PO PRN (09:18)
--- NOTE | 2018-06-25 12:04 | ECHOF ---
Referral Reason:assess LV fn MEASUREMENTS -------- HEIGHT: 167.6 cm WEIGHT: 76.2 kg BP: RVIDd: 4.0 cm (< 3.3) IVSd: 1.1 cm (0.6 - 1.1) LVIDd: 3.9 cm (3.9 - 5.3) LVPWd: 1.3 cm (0.6 - 1.1) IVSs: 1.4 cm LVIDs: 3.1 cm LVPWs: 1.7 cm Ao Diam: 4.9 cm (2.0 - 3.7) AV Cusp: 1.7 cm (1.5 - 2.6) LA Diam: 2.5 cm (2.7 - 3.8) MV EXCURSION: 16.312 mm (> 18.000) MV EF SLOPE: 169 mm/s (70 - 150) EPSS: 2.0 cm MV E Stephen: 0.32 m/s MV DecT: 251 ms MV A Stephen: 0.93 m/s MV E/A Ratio: 0.35 RAP: 5.00 mmHg RVSP: 27.49 mmHg FINDINGS -------- Undetermined rhythm. This was a technically difficult study with suboptimal views. There is mild concentric left ventricular hypertrophy. Overall left ventricular systolic function i s mild-moderately impaired with, an EF between 40 - 45 %. Septal wall motion is delayed, and consis tent with conduction delay/bundle branch block. Septal Hypokinesis The right ventricle is moderately enlarged. The left atrium is normal in size. The right atrium is normal in size. Lumason used The aortic valve is trileaflet and appears structurally normal. Mild mitral regurgitation is present. Mild tricuspid regurgitation present. The right ventricular systolic pressure, as measured by Doppl er, is 27.49mmHg. The pulmonic valve was not well visualized. The aortic root is dilated measuring 4.9. The pericardium is normal. CONCLUSIONS -------- 1. Undetermined rhythm. 2. This was a technically difficult study with suboptimal views. 3. There is mild concentric left ventricular hypertrophy. 4. Overall left ventricular systolic function is mild-moderately impaired with, an EF between 40 - 45 %. 5. Septal wall motion is delayed, and consistent with conduction delay/bundle branch block. 6. Septal Hypokinesis 7. The right ventricle is moderately enlarged. 8. The left atrium is normal in size. 9. The right atrium is normal in size. 10. Lumason used 11. The aortic valve is trileaflet and appears structurally normal. 12. Mild mitral regurgitation is present. 13. Mild tricuspid regurgitation present. 14. The right ventricular systolic pressure, as measured by Doppler, is 27.49mmHg. 15. The pulmonic valve was not well visualized. 16. The aortic root is dilated measuring 4.9. 17. The pericardium is normal. DOWEL INSERTING MACHINE OPERATOR: Isa Galvan RDCS
--- NOTE | 2018-06-25 12:48 | P.PN ---
Subjective Progress Note Date: 06/25/18 Principal diagnosis: Dyspnea, related to chest wall pain secondary to rib fractures. Traumatic injury related to fall, COPD This is a 70-year-old male patient with known history of advanced oxygen- dependent COPD who is coming to the hospital because of pain in his chest and some shortness of breath. The patient is very well-known to me. He is a patient was being followed up in our office. Of taking care of this patient in regards to his COPD and his last hospitalization was in 2017 for an acute COPD exacerbation. He is oxygen dependent. The patient was in a trip to [place] and he had a what seems to be a syncopal episode. Is not clear whether this was a true syncope versus a fall. The patient was hospitalized in a hospital in [place]. The patient was diagnosed having multilevel rib fracture. The patient had workup for his syncope and workup apparently was negative and the patient was discharged home. Within a few days of discharge, the patient continued to have chest pain. The pain medications that was offered was not enough. The sample was getting significantly uncomfortable and more short of breath and he was also getting some cough and congestion and he was unable to His respiratory secretions and for that reason he decided to come into the hospital. In the hospital the PA chest x-ray showed no acute abnormalities to indicate rib fractures. There was evidence of pneumonia. The rib views were obtained and the patient was found to have fractures of the posterior lateral seventh and eighth and ninth rib on the left. He has a lidocaine patch applied to that area. He is also taking oxycodone 15 mg every 4 hours. The patient is still having pain and the pain is quite extensive and is estimated to be around 10 out of 10 in severity. Unable to use the incentive spirometer. He is able to speak full sentences. Family is at the bedside. No significant chest wall deformity or bruising on inspection. No hemoptysis. No pleurisy. No angina. No swelling lower extremities. No recurrent episodes of syncope since then. No focal neurological deficit. No seizure activity. On 06/24/2018 patient seen in follow-up on surgical floor. He states he is having significant amount of chest wall pain, exacerbated by any movement and ambulation. Patient is receiving a combination of OxyContin on as-needed basis , and Dilaudid for breakthrough pain, he only received 1 dose of Dilaudid added last night, now his pain seems to be very severe. He is short of breath related to limitation of his respiratory effort and air to pain. He is not able to cough effectively. He is compliant with his incentive spirometry, and is able to achieve 1250 on it today. Lung sounds reveal a scattered rhonchi. His FiO2 is currently at 4 L per nasal cannula, he is afebrile, slightly tachycardic with a rate of 103 BPM. Mildly short of breath, with conversation. His labs were reviewed, shows the CBC of 6.2, hemoglobin of 15.6, potassium is 3.0, chloride is 97, CO2 is 39, BUN is 28, creatinine is 1.1. Patient is receiving nebulized bronchodilators, Singulair, Zosyn, and theophylline. As he will be replaced per protocol, and his oxycodone will be switched to 50 mg every 6 hours in a scheduled basis or better pain control. On 06/25/2018 patient seen in follow-up. This morning patient's oxygenation requirement has increased, patient was more short of breath, also walks was 86% on 4 L, FiO2 was been increased to 6 L, today's chest x-ray has been reviewed, and showed mild persistent patchy density at the right medial lung base, improved aeration in the left lung base, small pleural effusions. Lung sounds are positive for bibasilar crackles, and a dose of IV Lasix was administered IV fluids were cut down to KVO. Patient's chest wall pain is better controlled today, and he is on OxyContin 15 mg every 6 hours [id number], and Dilaudid for breakthrough pain. Compliant with his incentive spirometry, able to achieve 9481-9562 mL on the today. Lung sounds reveal scattered rhonchi, overall better air entry noted bilaterally. He is able to ambulate, no recurrence of syncope during admission. Continue current medical treatment, encourage deep breathing and coughing, and pulmonary toileting. Objective - Vital Signs Vital signs: Vital Signs Temp 97.7 F 06/25/18 08:19 Pulse 100 06/25/18 11:51 Resp 20 06/25/18 08:57 BP 124/80 06/25/18 08:19 Pulse Ox 90 L 06/25/18 08:57 Intake & Output 06/24/18 06/25/18 06/25/18 18:59 06:59 18:59 Intake Total 1452.5 Output Total 1100 Balance 1452.5 -1100 Intake: Intake, IV Titration 652.5 Amount Lactated Ringers 1,000 ml 400 @ 100 mls/hr IV .Q10H [facility] Rx#:[id number] Lactated Ringers 1,000 ml 240 @ 20 mls/hr IV .Q24H [facility] Rx#:[id number] Piperacillin-Tazobactam 3 12.5 .375 gm In Dextrose/Water 1 50ml.bag @ 12.5 mls/hr IVPB Q8HR [facility] Rx#: [id number] Oral 800 Output: Urine 1100 Other: Voiding Method Toilet # Voids 2 2 - Exam Gen. appearance the patient comfortable, in no acute distress. Currently on 6 L high flow nasal cannula. Head exam was generally normal. There was no scleral icterus or corneal arcus. Mucous membranes were moist. Neck was supple and without jugular venous distension, thyromegaly, or carotid bruits. Carotids were easily palpable bilaterally. There was no adenopathy. Lungs sounds are diminished bilaterally along rhonchi or lateral bases, no significant wheezing on today's exam.. Breath sounds are diminished in lung bases bilaterally. No skeletal deformities at this point in time. Cardiac exam revealed the PMI to be normally situated and sized. The rhythm was regular and no extrasystoles were noted during several minutes of auscultation. The first and second heart sounds were normal and physiologic splitting of the second heart sound was noted. There were no murmurs, rubs, clicks, or gallops. Abdominal exam revealed normal bowel sounds. The abdomen was soft, non-tender, and without masses, organomegaly, or appreciable enlargement of the abdominal aorta. Examination of the extremities revealed easily palpable radial, femoral and pedal pulses. There was no cyanosis, clubbing or edema. Examination of the skin revealed no evidence of significant rashes, suspicious appearing nevi or other concerning lesions. Neurologically awake and alert and there is no focal neurological deficit. - Labs CBC & Chem 7: 06/25/18 07:26 06/25/18 07:26 Labs: Abnormal Lab Results - Last 24 Hours (Table) 06/24/18 06/25/18 06/25/18 Range/Units 12:44 07:26 07:26 MCV 100.2 H (80.0-100.0) fL Lymphocytes # 0.8 L (1.0-4.8) k/uL Potassium 3.3 L (3.5-5.1) mmol/L Carbon Dioxide 36 H (22-30) mmol/L Glucose 102 H (74-99) mg/dL Assessment and Plan Plan: Assessment: 1 chest wall pain related to 3 level rib fracture on the left involving the seventh eighth and ninth rib. This is related to a traumatic injury/fall which came in the setting of a syncope. 2 advanced oxygen-dependent COPD with an FEV1 of 33% of predicted 3 chronic hypoxic respiratory failure secondary to above 4 shortness of breath and chest wall pain secondary to follow left-sided rib fractures 5 syncope, exact circumstances is not clear, in fact is not even clear the patient had a syncope versus a fall and for that reason the records will be obtained from [facility] and [place] for further insight on this syncopal episode. 6 prostate cancer 7 obstructive sleep apnea 8 ascending aortic aneurysm measuring 4.2 cm in size on prior CAT scan in the most recent echocardiogram from 2017 showed a dilatation of the aortic root measuring 4.5 x 5.1 cm in size. 9 impaired performance and functional capacity secondary to advanced COPD Plan: 1 dose of IV Lasix was given, he is diuresing, encourage deep breathing and coughing, incentive spirometry use, ambulation. Continue maintaining pain control. Today's chest x-ray was reviewed, and showed only small pleural effusions, mild patchy density in the right medial lung base, possibly related to atelectasis. Plan of treatment, wean FiO2 I performed a history & physical examination of the patient and discussed their management with my nurse practitioner, Jody Johnson. I reviewed the nurse practitioner's note and agree with the documented findings and plan of care. Lung sounds are positive for scat wheezes and scattered rhonchi. The findings and the impression was discussed with the patient. I attest to the documentation by the nurse practitioner. Time with Patient: Less than 30
[2018-06-25] MEDS: MAGNESIUM HYDROXIDE 2,400 MG/10 ML CUP PO PRN (15:49)
[2018-06-25] MEDS: LACTATED RINGERS 1,000 ML IV SCH ×2 (19:59→20:49)
[2018-06-25] MEDS: LIDOCAINE 4% CREAM 5 GM TUBE TOPICAL SCH (20:00)
[2018-06-25] MEDS: OXYMETAZOLINE 0.05% NASL SPRAY 1 SPRAY BOTTLE EA NOSTRIL SCH ×2 (20:00→21:23)
[2018-06-25] MEDS: TRIAMCINOLONE 0.1% CREAM 80 GM TUBE TOPICAL SCH ×2 (20:00→23:38)
[2018-06-25] MEDS: LIDOCAINE 5% PATCH TOPICAL SCH (20:58)
[2018-06-25] MEDS: THEOPHYLLINE 24 HOUR 200 MG CAP.ER.24H PO SCH (20:59)
[2018-06-26] MEDS: IPRATROPIUM-ALBUTEROL 3 ML NEB INHALATION SCH ×5 (03:08→20:24)
--- NOTE | 2018-06-26 06:18 | PN ---
PROGRESS NOTE DATE OF SERVICE: 06/25/18. PRESENTING COMPLAINT: Short of breath, cough. INTERVAL HISTORY: The patient with bilateral pneumonia, recent multiple bilateral rib fractures and also acute renal failure. Rib pain is slightly better, using also a K-pad, bringing up a little sputum. Did tolerate some diet. The patient is lying in uncomfortable position in the bed. REVIEW OF SYSTEMS: Done for constitutional, cardiovascular, GI, pulmonary; relevant findings as above. CURRENT MEDICATIONS: Reviewed that include IV Zosyn. EXAMINATION: Temperature 98.2, pulse 98, respirations 16, blood pressure 120/83, pulse ox 91 percent on 6 L. GENERAL APPEARANCE: Lying in bed, tired-appearing. EYES: Pupils equal. Conjunctivae normal. HEENT: External appearance of nose and ears normal. Oral cavity, thrush. NECK: JVD not raised. Mass not palpable. RESPIRATORY: Effort increased. LUNGS: Diminished breath sounds. Prolonged expiration. Occasional crackles. CARDIOVASCULAR: First and second sounds, no edema. ABDOMEN: Soft, nontender. Liver and spleen not palpable. PSYCHIATRY: Alert and oriented x3. Mood and affect anxious-appearing. INVESTIGATIONS: White count 6.6, potassium 3.5. Chest x-ray film interpreted by me shows improved aeration. ASSESSMENT: 1. Bilateral pneumonia suspect gram-negative organism with clinical improvement. 2. Multiple bilateral rib fractures causing chronic pain secondary to fall. 3. Acute renal failure probably acute tubular necrosis from using nonsteroidals and Lasix, now is much improved. 4. Bilateral rib fracture secondary to fall. 5. Acute chronic obstructive pulmonary disease exacerbation in an ex-smoker. 6. Obstructive sleep apnea, uses CPAP machine. 7. Prostate cancer. 8. Ascending aortic aneurysm 4.2 cm. 9. Restless legs syndrome. 10.Acute hypoxic respiratory failure from underlying pneumonia and chronic obstructive pulmonary disease. 11.Chronic hypoxic respiratory failure on 4 L oxygen from underlying chronic obstructive pulmonary disease. 12.Anxiety, not otherwise specified. 13.Dilated cardiomyopathy EF 40-45 percent. At the present time, will need further out workup as an outpatient. The patient did have a bout of short of breath this morning, given a dose of Lasix but I did talk to patient and nurse at length. The patient was positioned in awkward position, may be atelectasis. Clinically overall patient is feeling better he states and also does appear better radiologically. IV fluids have been scaled back. The patient did have a 2-D echocardiogram that showed the EF of 40-45 percent and some septal hypokinesis. No wall motion abnormality is reported. Will add a small dose of JUAN ANTONIO inhibitor. The patient's IV fluids have already been scaled back. CASI / PATRICIA: [id number] /
[2018-06-26] MEDS: BUDESONIDE 1 MG/2 ML NEBU INHALATION SCH ×2 (08:18→20:24)
[2018-06-26 08:52] LABS: Calcium 8.6 mg/dL (8.4-10.2); Potassium 4.2 mmol/L (3.5-5.1)
[2018-06-26] MEDS: ASPIRIN 81 MG PO SCH (08:56)
[2018-06-26] MEDS: MONTELUKAST 10 MG TAB PO SCH (08:56)
[2018-06-26] MEDS: guaiFENesin 600 MG TABLET.ER PO SCH ×2 (08:56→21:34)
[2018-06-26] MEDS: SPIRONOLACTONE 25 MG TAB PO SCH (08:56)
[2018-06-26] MEDS: FAMOTIDINE 20 MG TAB PO SCH ×2 (08:57→21:33)
[2018-06-26] MEDS: HEPARIN SODIUM,PORCINE 5,000 UNIT/ML 1 ML VIAL SQ SCH ×2 (08:59→17:07)
[2018-06-26] MEDS: LIDOCAINE 4% CREAM 5 GM TUBE TOPICAL SCH ×2 (09:01→10:23)
[2018-06-26] MEDS: PIPERACILLIN-TAZOBACTAM 3.375 GM in DEXTROSE/WATER 1 50ML.BAG IVPB SCH ×2 (09:01→17:10)
[2018-06-26] MEDS: OXYMETAZOLINE 0.05% NASL SPRAY 1 SPRAY BOTTLE EA NOSTRIL SCH ×2 (09:01→21:36)
[2018-06-26] MEDS: TRIAMCINOLONE 0.1% CREAM 80 GM TUBE TOPICAL SCH ×3 (09:02→22:29)
[2018-06-26] MEDS: HYDROmorphone 1 MG/ML 1 ML SYRINGE IVP PRN (10:23)
[2018-06-26] MEDS: MAGNESIUM HYDROXIDE 2,400 MG/10 ML CUP PO PRN (10:36)
[2018-06-26] MEDS: LACTATED RINGERS 1,000 ML IV SCH ×2 (10:38→10:39)
[2018-06-26] MEDS ORDERED: HYDROmorphone 1 MG/ML 1 ML SYRINGE IVP PRN (11:03)
--- NOTE | 2018-06-26 13:21 | P.PN ---
Subjective Progress Note Date: 06/26/18 Principal diagnosis: Dyspnea, related to chest wall pain secondary to rib fractures. Traumatic injury related to fall, COPD This is a 70-year-old male patient with known history of advanced oxygen- dependent COPD who is coming to the hospital because of pain in his chest and some shortness of breath. The patient is very well-known to me. He is a patient was being followed up in our office. Of taking care of this patient in regards to his COPD and his last hospitalization was in 2017 for an acute COPD exacerbation. He is oxygen dependent. The patient was in a trip to [place] and he had a what seems to be a syncopal episode. Is not clear whether this was a true syncope versus a fall. The patient was hospitalized in a hospital in [place]. The patient was diagnosed having multilevel rib fracture. The patient had workup for his syncope and workup apparently was negative and the patient was discharged home. Within a few days of discharge, the patient continued to have chest pain. The pain medications that was offered was not enough. The sample was getting significantly uncomfortable and more short of breath and he was also getting some cough and congestion and he was unable to His respiratory secretions and for that reason he decided to come into the hospital. In the hospital the PA chest x-ray showed no acute abnormalities to indicate rib fractures. There was evidence of pneumonia. The rib views were obtained and the patient was found to have fractures of the posterior lateral seventh and eighth and ninth rib on the left. He has a lidocaine patch applied to that area. He is also taking oxycodone 15 mg every 4 hours. The patient is still having pain and the pain is quite extensive and is estimated to be around 10 out of 10 in severity. Unable to use the incentive spirometer. He is able to speak full sentences. Family is at the bedside. No significant chest wall deformity or bruising on inspection. No hemoptysis. No pleurisy. No angina. No swelling lower extremities. No recurrent episodes of syncope since then. No focal neurological deficit. No seizure activity. On 06/24/2018 patient seen in follow-up on surgical floor. He states he is having significant amount of chest wall pain, exacerbated by any movement and ambulation. Patient is receiving a combination of OxyContin on as-needed basis , and Dilaudid for breakthrough pain, he only received 1 dose of Dilaudid added last night, now his pain seems to be very severe. He is short of breath related to limitation of his respiratory effort and air to pain. He is not able to cough effectively. He is compliant with his incentive spirometry, and is able to achieve 1250 on it today. Lung sounds reveal a scattered rhonchi. His FiO2 is currently at 4 L per nasal cannula, he is afebrile, slightly tachycardic with a rate of 103 BPM. Mildly short of breath, with conversation. His labs were reviewed, shows the CBC of 6.2, hemoglobin of 15.6, potassium is 3.0, chloride is 97, CO2 is 39, BUN is 28, creatinine is 1.1. Patient is receiving nebulized bronchodilators, Singulair, Zosyn, and theophylline. As he will be replaced per protocol, and his oxycodone will be switched to 50 mg every 6 hours in a scheduled basis or better pain control. On 06/25/2018 patient seen in follow-up. This morning patient's oxygenation requirement has increased, patient was more short of breath, also walks was 86% on 4 L, FiO2 was been increased to 6 L, today's chest x-ray has been reviewed, and showed mild persistent patchy density at the right medial lung base, improved aeration in the left lung base, small pleural effusions. Lung sounds are positive for bibasilar crackles, and a dose of IV Lasix was administered IV fluids were cut down to KVO. Patient's chest wall pain is better controlled today, and he is on OxyContin 15 mg every 6 hours [id number], and Dilaudid for breakthrough pain. Compliant with his incentive spirometry, able to achieve 2103-4924 mL on the today. Lung sounds reveal scattered rhonchi, overall better air entry noted bilaterally. He is able to ambulate, no recurrence of syncope during admission. Continue current medical treatment, encourage deep breathing and coughing, and pulmonary toileting. On 06/26/2018 patient seen in follow-up on medical surgical floor on the fourth floor. He states he feels more chest congestion, still has ongoing issues with pain control due to multiple left-sided rib fractures. Currently remains on OxyContin 15 mg every 6 hours, and dilated for breakthrough pain which is given infrequently. Lung sounds are positive for scattered rhonchi, patient is currently on 6 L per high flow nasal cannula, and his pulse ox is 89%. He is afebrile, vital signs are stable, there has been no recurrence of syncope. Today's labs have been reviewed, no CBC has been a BMP shows sodium of 139, potassium is 4.2, chloride is 99, CO2 34, renal profile is within normal limits. Patient denies any fever or chills, no lightheadedness or dizziness. Continue to encourage incentive spirometry use Objective - Vital Signs Vital signs: Vital Signs Temp 97.5 F L 06/26/18 09:30 Pulse 108 H 06/26/18 11:54 Resp 20 06/26/18 10:43 BP 140/87 06/26/18 09:30 Pulse Ox 89 L 06/26/18 09:30 Intake & Output 06/25/18 06/26/18 06/26/18 18:59 06:59 18:59 Intake Total 540 1040 Output Total 1100 Balance -560 1040 Weight 76.204 kg Intake: Oral 540 1040 Output: Urine 1100 Other: Voiding Method Toilet # Voids 2 - Exam Gen. appearance the patient comfortable, in no acute distress. Currently on 6 L high flow nasal cannula. Head exam was generally normal. There was no scleral icterus or corneal arcus. Mucous membranes were moist. Neck was supple and without jugular venous distension, thyromegaly, or carotid bruits. Carotids were easily palpable bilaterally. There was no adenopathy. Lungs sounds are positive for diffuse rhonchi rhonchi , no significant wheezing . Breath sounds are diminished in lung bases bilaterally. No skeletal deformities at this point in time. Cardiac exam revealed the PMI to be normally situated and sized. The rhythm was regular and no extrasystoles were noted during several minutes of auscultation. The first and second heart sounds were normal and physiologic splitting of the second heart sound was noted. There were no murmurs, rubs, clicks, or gallops. Abdominal exam revealed normal bowel sounds. The abdomen was soft, non-tender, and without masses, organomegaly, or appreciable enlargement of the abdominal aorta. Examination of the extremities revealed easily palpable radial, femoral and pedal pulses. There was no cyanosis, clubbing or edema. Examination of the skin revealed no evidence of significant rashes, suspicious appearing nevi or other concerning lesions. Neurologically awake and alert and there is no focal neurological deficit. - Labs CBC & Chem 7: 06/25/18 07:26 06/26/18 08:04 Labs: Abnormal Lab Results - Last 24 Hours (Table) 06/26/18 Range/Units 08:04 Carbon Dioxide 34 H (22-30) mmol/L Assessment and Plan Plan: Assessment: 1 chest wall pain related to 3 level rib fracture on the left involving the seventh eighth and ninth rib. This is related to a traumatic injury/fall which came in the setting of a syncope. 2 advanced oxygen-dependent COPD with an FEV1 of 33% of predicted 3 chronic hypoxic respiratory failure secondary to above 4 shortness of breath and chest wall pain secondary to follow left-sided rib fractures 5 syncope, exact circumstances is not clear, in fact is not even clear the patient had a syncope versus a fall and for that reason the records will be obtained from [facility] and [place] for further insight on this syncopal episode. 6 prostate cancer 7 obstructive sleep apnea 8 ascending aortic aneurysm measuring 4.2 cm in size on prior CAT scan in the most recent echocardiogram from 2017 showed a dilatation of the aortic root measuring 4.5 x 5.1 cm in size. 9 impaired performance and functional capacity secondary to advanced COPD Plan: Maintain pain control, encourage incentive spirometry use, ambulation, sitting up in the chair. Patient's pain control remains somewhat suboptimal, we will increase frequency of his OxyContin to every 4 hours, and Dilaudid to 1 mg every 6 hours for breakthrough pain. Encourage pulmonary toileting, wean FiO2, continue with nebulized bronchodilators. I performed a history & physical examination of the patient and discussed their management with my nurse practitioner, Jody Johnson. I reviewed the nurse practitioner's note and agree with the documented findings and plan of care. Lung sounds are positive for scattered rhonchi. The findings and the impression was discussed with the patient. I attest to the documentation by the nurse practitioner. Time with Patient: Less than 30
[2018-06-26] MEDS: POLYETHYLENE GLYCOL 3350 17 GM POWD.PACK PO PRN (15:49)
[2018-06-26] MEDS: FORMOTEROL FUMARATE 20 MCG/2 ML NEBU INHALATION SCH (20:24)
[2018-06-26] MEDS: LISINOPRIL 2.5 MG TAB PO SCH (21:28)
[2018-06-26] MEDS: THEOPHYLLINE 24 HOUR 200 MG CAP.ER.24H PO SCH (21:28)
[2018-06-26] MEDS: LIDOCAINE 5% PATCH TOPICAL SCH (21:35)
--- NOTE | 2018-06-26 22:26 | PN ---
PROGRESS NOTE DATE OF SERVICE: 06/26/2018 PRESENTING COMPLAINT: Short of breath, cough. INTERVAL HISTORY: This is a patient with bilateral pneumonia and recent multiple bilateral rib fractures and also acute renal failure. Renal failure has improved. The patient has still got a cough. Eating better. Has not had a bowel movement. Dr. Altman earlier did adjust patient's pain medications. REVIEW OF SYSTEMS: Done for constitutional, cardiovascular, GI, pulmonary; relevant findings as above. CURRENT MEDICATIONS: Reviewed. They include IV Zosyn. PHYSICAL EXAMINATION: Afebrile, pulse 103, respiration 18, blood pressure 131/94, pulse ox 88% on 6 L. GENERAL APPEARANCE: Sitting up. Tired. EYES: Pupils equal. Conjunctivae normal. HEENT: External appearance of nose and ears normal. Oral cavity shows thrush present. NECK: JVD not raised. Mass not palpable. RESPIRATORY: Effort increased. LUNGS: Decreased breath sounds. Prolonged expiration. CARDIOVASCULAR: First and second sounds normal. No edema. ABDOMEN: Soft, non-tender. Liver and spleen not palpable. PSYCHIATRY: Alert and oriented x3. Mood and affect normal. DERMATOLOGICAL: Bruising is present. INVESTIGATIONS: Potassium 4.2, creatinine 0.98. ASSESSMENT: 1. Bilateral pneumonia; suspect gram-negative organism, with clinical improvement. 2. Multiple bilateral rib fractures causing acute on chronic pain secondary to fall. 3. Acute renal failure, probably acute tubular necrosis from non-steroidals and Lasix, now resolved. 4. Bilateral hip fracture secondary to fall. 5. Acute chronic obstructive pulmonary disease exacerbation in an ex-smoker. 6. Obstructive sleep apnea. Uses CPAP machine. 7. Prostate cancer. 8. Ascending aortic aneurysm, 4.2 cm. 9. Restless legs syndrome. 10.Acute hypoxic respiratory failure from underlying pneumonia and chronic obstructive pulmonary disease. 11.Chronic hypoxic respiratory failure, on 4 L oxygen, from underlying chronic obstructive pulmonary disease. 12.Anxiety not otherwise specified. 13.Dilated cardiomyopathy, ejection fraction 40% to 45%. Will need further workup as an outpatient. PLAN: Continue current medication and treatment plan. Will consult Pain Services. Patient is on a rather hefty dose of pain medications for his body frame size. I think any further increase of pain medications would probably result in more side effects than benefit. Rib fractures are difficult to control. Will discuss with Dr. Altman if a corset around the chest may help at least on a temporary basis. MMODL / IJN: [id number] /
[2018-06-27] MEDS: HEPARIN SODIUM,PORCINE 5,000 UNIT/ML 1 ML VIAL SQ SCH ×4 (00:38→23:27)
[2018-06-27] MEDS: PIPERACILLIN-TAZOBACTAM 3.375 GM in DEXTROSE/WATER 1 50ML.BAG IVPB SCH ×4 (00:42→23:27)
[2018-06-27] MEDS: IPRATROPIUM-ALBUTEROL 3 ML NEB INHALATION SCH ×6 (00:56→20:24)
[2018-06-27] MEDS: guaiFENesin 600 MG TABLET.ER PO SCH ×2 (08:07→20:40)
[2018-06-27] MEDS: OXYMETAZOLINE 0.05% NASL SPRAY 1 SPRAY BOTTLE EA NOSTRIL SCH ×2 (08:08→20:42)
[2018-06-27] MEDS: MONTELUKAST 10 MG TAB PO SCH (08:08)
[2018-06-27] MEDS: LIDOCAINE 5% PATCH TOPICAL SCH (08:08)
[2018-06-27] MEDS: SPIRONOLACTONE 25 MG TAB PO SCH (08:09)
[2018-06-27] MEDS: TRIAMCINOLONE 0.1% CREAM 80 GM TUBE TOPICAL SCH ×3 (08:09→20:42)
[2018-06-27] MEDS: ASPIRIN 81 MG PO SCH (08:10)
[2018-06-27] MEDS: FAMOTIDINE 20 MG TAB PO SCH ×2 (08:10→20:40)
[2018-06-27] MEDS: LIDOCAINE 4% CREAM 5 GM TUBE TOPICAL SCH (08:11)
[2018-06-27] MEDS: FORMOTEROL FUMARATE 20 MCG/2 ML NEBU INHALATION SCH ×2 (09:21→20:24)
[2018-06-27] MEDS: BUDESONIDE 1 MG/2 ML NEBU INHALATION SCH ×2 (09:21→20:24)
[2018-06-27 09:56] LABS: Anion Gap 8 mmol/L; Blood Urea Nitrogen 16 mg/dL (9-20); Calcium 9.1 mg/dL (8.4-10.2); Carbon Dioxide 28 mmol/L (22-30); Chloride 101 mmol/L (98-107); Glucose 104 mg/dL (74-99); Potassium 4.2 mmol/L (3.5-5.1); Sodium 137 mmol/L (137-145)
[2018-06-27] MEDS: ALPRAZolam 0.25 MG TAB PO PRN (10:01)
[2018-06-27 10:31] LABS: Basophils % (A) 0 %; Eosinophils # (A) 0.2 k/uL (0-0.7); Eosinophils % (A) 3 %; HCT 51.3 % (39.0-53.0); Hypochromasia Slight; Lymphocytes # (A) 0.5 k/uL (1.0-4.8); Lymphocytes % (A) 7 %; MCH 31.3 pg (25.0-35.0); MCHC 31.2 g/dL (31.0-37.0); MCV 100.3 fL (80.0-100.0); Macrocytosis Slight; Monocytes # (A) 0.5 k/uL (0-1.0); Monocytes % (A) 6 %; Neutrophils # (A) 6.2 k/uL (1.3-7.7); Neutrophils % (A) 81 %; Platelet Count 269 k/uL (150-450); RBC 5.11 m/uL (4.30-5.90); RDW 14.6 % (11.5-15.5); WBC 7.6 k/uL (3.8-10.6)
--- NOTE | 2018-06-27 13:27 | P.PN ---
Subjective Progress Note Date: 06/27/18 Principal diagnosis: Dyspnea, related to chest wall pain secondary to rib fractures. Traumatic injury related to fall, COPD This is a 70-year-old male patient with known history of advanced oxygen- dependent COPD who is coming to the hospital because of pain in his chest and some shortness of breath. The patient is very well-known to me. He is a patient was being followed up in our office. Of taking care of this patient in regards to his COPD and his last hospitalization was in 2017 for an acute COPD exacerbation. He is oxygen dependent. The patient was in a trip to [place] and he had a what seems to be a syncopal episode. Is not clear whether this was a true syncope versus a fall. The patient was hospitalized in a hospital in [place]. The patient was diagnosed having multilevel rib fracture. The patient had workup for his syncope and workup apparently was negative and the patient was discharged home. Within a few days of discharge, the patient continued to have chest pain. The pain medications that was offered was not enough. The sample was getting significantly uncomfortable and more short of breath and he was also getting some cough and congestion and he was unable to His respiratory secretions and for that reason he decided to come into the hospital. In the hospital the PA chest x-ray showed no acute abnormalities to indicate rib fractures. There was evidence of pneumonia. The rib views were obtained and the patient was found to have fractures of the posterior lateral seventh and eighth and ninth rib on the left. He has a lidocaine patch applied to that area. He is also taking oxycodone 15 mg every 4 hours. The patient is still having pain and the pain is quite extensive and is estimated to be around 10 out of 10 in severity. Unable to use the incentive spirometer. He is able to speak full sentences. Family is at the bedside. No significant chest wall deformity or bruising on inspection. No hemoptysis. No pleurisy. No angina. No swelling lower extremities. No recurrent episodes of syncope since then. No focal neurological deficit. No seizure activity. On 06/24/2018 patient seen in follow-up on surgical floor. He states he is having significant amount of chest wall pain, exacerbated by any movement and ambulation. Patient is receiving a combination of OxyContin on as-needed basis , and Dilaudid for breakthrough pain, he only received 1 dose of Dilaudid added last night, now his pain seems to be very severe. He is short of breath related to limitation of his respiratory effort and air to pain. He is not able to cough effectively. He is compliant with his incentive spirometry, and is able to achieve 1250 on it today. Lung sounds reveal a scattered rhonchi. His FiO2 is currently at 4 L per nasal cannula, he is afebrile, slightly tachycardic with a rate of 103 BPM. Mildly short of breath, with conversation. His labs were reviewed, shows the CBC of 6.2, hemoglobin of 15.6, potassium is 3.0, chloride is 97, CO2 is 39, BUN is 28, creatinine is 1.1. Patient is receiving nebulized bronchodilators, Singulair, Zosyn, and theophylline. As he will be replaced per protocol, and his oxycodone will be switched to 50 mg every 6 hours in a scheduled basis or better pain control. On 06/25/2018 patient seen in follow-up. This morning patient's oxygenation requirement has increased, patient was more short of breath, also walks was 86% on 4 L, FiO2 was been increased to 6 L, today's chest x-ray has been reviewed, and showed mild persistent patchy density at the right medial lung base, improved aeration in the left lung base, small pleural effusions. Lung sounds are positive for bibasilar crackles, and a dose of IV Lasix was administered IV fluids were cut down to KVO. Patient's chest wall pain is better controlled today, and he is on OxyContin 15 mg every 6 hours [id number], and Dilaudid for breakthrough pain. Compliant with his incentive spirometry, able to achieve 3375-5466 mL on the today. Lung sounds reveal scattered rhonchi, overall better air entry noted bilaterally. He is able to ambulate, no recurrence of syncope during admission. Continue current medical treatment, encourage deep breathing and coughing, and pulmonary toileting. On 06/26/2018 patient seen in follow-up on medical surgical floor on the fourth floor. He states he feels more chest congestion, still has ongoing issues with pain control due to multiple left-sided rib fractures. Currently remains on OxyContin 15 mg every 6 hours, and dilated for breakthrough pain which is given infrequently. Lung sounds are positive for scattered rhonchi, patient is currently on 6 L per high flow nasal cannula, and his pulse ox is 89%. He is afebrile, vital signs are stable, there has been no recurrence of syncope. Today's labs have been reviewed, no CBC has been a BMP shows sodium of 139, potassium is 4.2, chloride is 99, CO2 34, renal profile is within normal limits. Patient denies any fever or chills, no lightheadedness or dizziness. Continue to encourage incentive spirometry use On 06/27/2018 patient seen in follow-up on medical surgical floor. His pain is a bit better controlled today, lung sounds are positive for some scattered rhonchi, overall seems to be less congested compared to yesterday's exam. At times his pulse ox is as low as 86%, improves with deep breathing and coughing, currently on 6 L per high flow nasal cannula. Continues on IV Zosyn, nebulized bronchodilators, obtain repeat chest x-ray today, continue with current medical treatment. Today's lab work has been reviewed, no leukocytosis, electrolytes and renal profile are within normal limits. Objective - Vital Signs Vital signs: Vital Signs Temp 97.9 F 06/27/18 06:46 Pulse 96 06/27/18 13:05 Resp 20 06/27/18 08:00 BP 122/82 06/27/18 06:46 Pulse Ox 86 L 06/27/18 06:46 Intake & Output 06/26/18 06/27/18 06/27/18 18:59 06:59 18:59 Intake Total 600 Balance 600 Weight 76.204 kg Intake: Oral 600 Other: Voiding Method Toilet Toilet # Voids 1 1 # Bowel Movements 0 - Exam Gen. appearance the patient comfortable, in no acute distress. Currently on 6 L high flow nasal cannula. Head exam was generally normal. There was no scleral icterus or corneal arcus. Mucous membranes were moist. Neck was supple and without jugular venous distension, thyromegaly, or carotid bruits. Carotids were easily palpable bilaterally. There was no adenopathy. Lungs sounds are positive for a few scattered rhonchi , no significant wheezing . Breath sounds are diminished in lung bases bilaterally. No skeletal deformities at this point in time. Cardiac exam revealed the PMI to be normally situated and sized. The rhythm was regular and no extrasystoles were noted during several minutes of auscultation. The first and second heart sounds were normal and physiologic splitting of the second heart sound was noted. There were no murmurs, rubs, clicks, or gallops. Abdominal exam revealed normal bowel sounds. The abdomen was soft, non-tender, and without masses, organomegaly, or appreciable enlargement of the abdominal aorta. Examination of the extremities revealed easily palpable radial, femoral and pedal pulses. There was no cyanosis, clubbing or edema. Examination of the skin revealed no evidence of significant rashes, suspicious appearing nevi or other concerning lesions. Neurologically awake and alert and there is no focal neurological deficit. - Labs CBC & Chem 7: 06/27/18 09:14 18 09:14 Labs: Abnormal Lab Results - Last 24 Hours (Table) 06/27/18 06/27/18 Range/Units :14 09:14 MCV 100.3 H (80.0-100.0) fL Lymphocytes # 0.5 L (1.0-4.8) k/uL Glucose 104 H (74-99) mg/dL Assessment and Plan Plan: Assessment: 1 chest wall pain related to 3 level rib fracture on the left involving the seventh eighth and ninth rib. This is related to a traumatic injury/fall which came in the setting of a syncope. 2 advanced oxygen-dependent COPD with an FEV1 of 33% of predicted 3 chronic hypoxic respiratory failure secondary to above 4 shortness of breath and chest wall pain secondary to follow left-sided rib fractures 5 syncope, exact circumstances is not clear, in fact is not even clear the patient had a syncope versus a fall and for that reason the records will be obtained from [facility] and [place] for further insight on this syncopal episode. 6 prostate cancer 7 obstructive sleep apnea 8 ascending aortic aneurysm measuring 4.2 cm in size on prior CAT scan in the most recent echocardiogram from 2017 showed a dilatation of the aortic root measuring 4.5 x 5.1 cm in size. 9 impaired performance and functional capacity secondary to advanced COPD Plan: Continue current pain medications, pain seems to be a bit better controlled, patient is able to effectively deep breathe and cough, continue encouraging incentive spirometry, repeat chest x-ray today, today's labs have been reviewed , no leukocytosis, patient is afebrile. He lies bronchodilators, encourage ambulation. I performed a history & physical examination of the patient and discussed their management with my nurse practitioner, Jody Johnson. I reviewed the nurse practitioner's note and agree with the documented findings and plan of care. Lung sounds are positive for scattered rhonchi. The findings and the impression was discussed with the patient. I attest to the documentation by the nurse practitioner. Time with Patient: Less than 30
[2018-06-27] MEDS: MAGNESIUM HYDROXIDE 2,400 MG/10 ML CUP PO PRN (13:29)
--- NOTE | 2018-06-27 13:49 | XR ---
EXAMINATION TYPE: XR chest 2V DATE OF EXAM: 06/27/2018 COMPARISON: 06/25/2018 HISTORY: 72-year-old male chest congestion and cough, shortness of breath TECHNIQUE: Frontal and lateral views FINDINGS: Heart limits of normal in size. Elongation/ectasia of the thoracic aorta. Relative upper lung lucenci es with hyperinflation and increased retrosternal clear space. Similar slight asymmetric elevation of the left hemidiaphragm. Patchy left basilar opacity is slightly increased. Small pleural effusions p ersist on the lateral view. IMPRESSION: 1. Persistent small pleural effusions. Some patchy left basilar atelectasis or developing infiltrate has increased. 2. Background of COPD.
[2018-06-27] MEDS: THEOPHYLLINE 24 HOUR 200 MG CAP.ER.24H PO SCH (20:40)
[2018-06-27] MEDS: LISINOPRIL 2.5 MG TAB PO SCH (20:40)
--- NOTE | 2018-06-27 23:30 | PN ---
PROGRESS NOTE DATE OF SERVICE: 06/27/2018 PRESENTING COMPLAINT: Short of breath. INTERVAL HISTORY: This is a patient with bilateral pneumonia and recent multiple bilateral rip fractures secondary to a fall. He also had renal failure when he came in. That has actually corrected. Patient remains short of breath with cough. He was given a laxative yesterday without much help. Pain consultation was placed yesterday; awaiting their input. REVIEW OF SYSTEMS: Done for constitutional, cardiovascular, GI, pulmonary; relevant findings as above. CURRENT MEDICATIONS: Reviewed. They include IV Zosyn and inhaled steroids. PHYSICAL EXAMINATION: Temperature 98.1, pulse 106, respiration 20, blood pressure 112/79, pulse ox 87% on 6 L. GENERAL APPEARANCE: Sitting up. Short of breath. EYES: Pupils equal. Conjunctivae normal. HEENT: External appearance of nose and ears normal. Oral cavity has white spots. NECK: JVD not raised. Mass not palpable. RESPIRATORY: Effort increased. LUNGS: Decreased breath sounds. Prolonged expiration. CARDIOVASCULAR: First and second sounds normal. No edema. ABDOMEN: Soft, non-tender. Liver and spleen not palpable. PSYCHIATRY: Alert and oriented x3. Mood and affect anxious-appearing. DERMATOLOGICAL: Diffuse bruising. INVESTIGATIONS: Chest x-ray shows some worsening of infiltrates. White count 7.6, potassium 4.2, creatinine 0.9. ASSESSMENT: 1. Bilateral pneumonia; suspect gram-negative organism; slow to respond. 2. Multiple bilateral rib fractures causing acute on chronic pain secondary to a fall. 3. Acute renal failure, probably from acute tubular necrosis from nonsteroidals and Lasix, resolved. 4. Bilateral rib fractures secondary to fall. 5. Acute chronic obstructive pulmonary disease exacerbation in an ex-smoker, slow to respond. 6. Obstructive sleep apnea. Uses a CPAP machine. 7. Prostate cancer. 8. Ascending aortic aneurysm, 4.2 cm. 9. Restless legs syndrome. 10.Acute hypoxic respiratory failure and underlying pneumonia and chronic obstructive pulmonary disease, worsening. 11.Chronic hypoxic respiratory failure, on 4 L oxygen, from underlying chronic obstructive pulmonary disease. 12.Anxiety not otherwise specified. 13.Dilated cardiomyopathy, ejection fraction 40% to 45%. Further workup as an outpatient. PLAN: Continue current medication and treatment plan. Awaiting input from Pain Services. Antibiotics are to continue. Patient's sputum culture is pending. Patient is already on Mucinex and using the incentive spirometry. MMODL / IJN: [id number] /
[2018-06-28] MEDS: IPRATROPIUM-ALBUTEROL 3 ML NEB INHALATION SCH ×6 (00:19→20:42)
[2018-06-28 03:23] LABS: Appearance,Urine Clear (Clear); Bilirubin,Urine Negative (Negative); Blood,Urine Negative (Negative); Color,Urine Yellow; Glucose,Urine (UA) Negative (Negative); Hyaline Casts,Urine 1 /lpf (0-2); Ketones,Urine 1+ (Negative); Leukocyte Esterase,Urine Trace (Negative); Mucus,Urine Rare /hpf; Nitrite,Urine Negative (Negative); PH, Urine 5.5 (5.0-8.0); Protein,Urine Trace (Negative); RBC,Urine 1 /hpf (0-5); Specific Gravity,Urine 1.023 (1.001-1.035); Squamous Epithelial Cell,Urine <1 /hpf (0-4); Urobilinogen,Urine <2.0 mg/dL (<2.0); WBC,Urine 7 /hpf (0-5)
[2018-06-28] MEDS: ALPRAZolam 0.25 MG TAB PO PRN (03:46)
[2018-06-28] MEDS: FORMOTEROL FUMARATE 20 MCG/2 ML NEBU INHALATION SCH ×2 (07:35→20:42)
[2018-06-28] MEDS: BUDESONIDE 1 MG/2 ML NEBU INHALATION SCH ×2 (07:35→20:42)
[2018-06-28] MEDS: PIPERACILLIN-TAZOBACTAM 3.375 GM in DEXTROSE/WATER 1 50ML.BAG IVPB SCH ×2 (07:48→15:57)
[2018-06-28] MEDS: SPIRONOLACTONE 25 MG TAB PO SCH (07:49)
[2018-06-28] MEDS: HEPARIN SODIUM,PORCINE 5,000 UNIT/ML 1 ML VIAL SQ SCH ×2 (07:49→15:58)
[2018-06-28] MEDS: LIDOCAINE 5% PATCH TOPICAL SCH (07:49)
[2018-06-28] MEDS: guaiFENesin 600 MG TABLET.ER PO SCH ×2 (07:50→20:42)
[2018-06-28] MEDS: FAMOTIDINE 20 MG TAB PO SCH ×2 (07:50→20:41)
[2018-06-28] MEDS: TRIAMCINOLONE 0.1% CREAM 80 GM TUBE TOPICAL SCH ×3 (07:50→22:52)
[2018-06-28] MEDS: ASPIRIN 81 MG PO SCH (07:50)
[2018-06-28] MEDS: LIDOCAINE 4% CREAM 5 GM TUBE TOPICAL SCH (07:50)
[2018-06-28] MEDS: MONTELUKAST 10 MG TAB PO SCH (07:50)
[2018-06-28] MEDS: OXYMETAZOLINE 0.05% NASL SPRAY 1 SPRAY BOTTLE EA NOSTRIL SCH ×2 (07:55→22:28)
[2018-06-28 09:51] LABS: Calcium 8.6 mg/dL (8.4-10.2); Potassium 4.3 mmol/L (3.5-5.1)
--- NOTE | 2018-06-28 10:13 | US ---
EXAMINATION TYPE: US chest DATE OF EXAM: 06/28/2018 COMPARISON: X ray yesterday. CLINICAL HISTORY: chad for left pl effusion-thoracentesis. TECHNIQUE: Targeted ultrasound of the posterior lower bilateral hemithoraces EXAM MEASUREMENTS: Right Pleural Effusion pocket size: 1.0 cm Left Pleural Effusion pocket size: 3.3 cm added together as lung is noted floating in mid fluid pock et Left skin surface to fluid distance: 2.3 cm Right side was not marked for possible thoracentesis outside the dept. Left side was not marked for possible thoracentesis outside the dept. Pulmonologists are able to review the images in the patient?s EMR. Images saved show tiny right pleural effusion and small left pleural effusion which correlates with x -ray from yesterday. IMPRESSIONS: As above
[2018-06-28] MEDS ORDERED: IPRATROPIUM-ALBUTEROL 3 ML NEB INHALATION PRN (14:43)
--- NOTE | 2018-06-28 15:29 | P.PN ---
Subjective Progress Note Date: 06/28/18 Principal diagnosis: Dyspnea, related to chest wall pain secondary to rib fractures. Traumatic injury related to fall, COPD This is a 70-year-old male patient with known history of advanced oxygen- dependent COPD who is coming to the hospital because of pain in his chest and some shortness of breath. The patient is very well-known to me. He is a patient was being followed up in our office. Of taking care of this patient in regards to his COPD and his last hospitalization was in 2017 for an acute COPD exacerbation. He is oxygen dependent. The patient was in a trip to [place] and he had a what seems to be a syncopal episode. Is not clear whether this was a true syncope versus a fall. The patient was hospitalized in a hospital in [place]. The patient was diagnosed having multilevel rib fracture. The patient had workup for his syncope and workup apparently was negative and the patient was discharged home. Within a few days of discharge, the patient continued to have chest pain. The pain medications that was offered was not enough. The sample was getting significantly uncomfortable and more short of breath and he was also getting some cough and congestion and he was unable to His respiratory secretions and for that reason he decided to come into the hospital. In the hospital the PA chest x-ray showed no acute abnormalities to indicate rib fractures. There was evidence of pneumonia. The rib views were obtained and the patient was found to have fractures of the posterior lateral seventh and eighth and ninth rib on the left. He has a lidocaine patch applied to that area. He is also taking oxycodone 15 mg every 4 hours. The patient is still having pain and the pain is quite extensive and is estimated to be around 10 out of 10 in severity. Unable to use the incentive spirometer. He is able to speak full sentences. Family is at the bedside. No significant chest wall deformity or bruising on inspection. No hemoptysis. No pleurisy. No angina. No swelling lower extremities. No recurrent episodes of syncope since then. No focal neurological deficit. No seizure activity. On 06/24/2018 patient seen in follow-up on surgical floor. He states he is having significant amount of chest wall pain, exacerbated by any movement and ambulation. Patient is receiving a combination of OxyContin on as-needed basis , and Dilaudid for breakthrough pain, he only received 1 dose of Dilaudid added last night, now his pain seems to be very severe. He is short of breath related to limitation of his respiratory effort and air to pain. He is not able to cough effectively. He is compliant with his incentive spirometry, and is able to achieve 1250 on it today. Lung sounds reveal a scattered rhonchi. His FiO2 is currently at 4 L per nasal cannula, he is afebrile, slightly tachycardic with a rate of 103 BPM. Mildly short of breath, with conversation. His labs were reviewed, shows the CBC of 6.2, hemoglobin of 15.6, potassium is 3.0, chloride is 97, CO2 is 39, BUN is 28, creatinine is 1.1. Patient is receiving nebulized bronchodilators, Singulair, Zosyn, and theophylline. As he will be replaced per protocol, and his oxycodone will be switched to 50 mg every 6 hours in a scheduled basis or better pain control. On 06/25/2018 patient seen in follow-up. This morning patient's oxygenation requirement has increased, patient was more short of breath, also walks was 86% on 4 L, FiO2 was been increased to 6 L, today's chest x-ray has been reviewed, and showed mild persistent patchy density at the right medial lung base, improved aeration in the left lung base, small pleural effusions. Lung sounds are positive for bibasilar crackles, and a dose of IV Lasix was administered IV fluids were cut down to KVO. Patient's chest wall pain is better controlled today, and he is on OxyContin 15 mg every 6 hours [id number], and Dilaudid for breakthrough pain. Compliant with his incentive spirometry, able to achieve 3912-6281 mL on the today. Lung sounds reveal scattered rhonchi, overall better air entry noted bilaterally. He is able to ambulate, no recurrence of syncope during admission. Continue current medical treatment, encourage deep breathing and coughing, and pulmonary toileting. On 06/26/2018 patient seen in follow-up on medical surgical floor on the fourth floor. He states he feels more chest congestion, still has ongoing issues with pain control due to multiple left-sided rib fractures. Currently remains on OxyContin 15 mg every 6 hours, and dilated for breakthrough pain which is given infrequently. Lung sounds are positive for scattered rhonchi, patient is currently on 6 L per high flow nasal cannula, and his pulse ox is 89%. He is afebrile, vital signs are stable, there has been no recurrence of syncope. Today's labs have been reviewed, no CBC has been a BMP shows sodium of 139, potassium is 4.2, chloride is 99, CO2 34, renal profile is within normal limits. Patient denies any fever or chills, no lightheadedness or dizziness. Continue to encourage incentive spirometry use On 06/27/2018 patient seen in follow-up on medical surgical floor. His pain is a bit better controlled today, lung sounds are positive for some scattered rhonchi, overall seems to be less congested compared to yesterday's exam. At times his pulse ox is as low as 86%, improves with deep breathing and coughing, currently on 6 L per high flow nasal cannula. Continues on IV Zosyn, nebulized bronchodilators, obtain repeat chest x-ray today, continue with current medical treatment. Today's lab work has been reviewed, no leukocytosis, electrolytes and renal profile are within normal limits. On 06/28/2018 patient seen in follow-up on medical surgical floor. Yesterday's chest x-ray has been reviewed, and showed small bilateral pleural effusions, some patchy left basilar atelectasis versus a developing infiltrate. On a background of COPD. Chest ultrasound was completed, and showed only 1 cm right pleural effusion pocket and 3.3 cm of left pleural effusion pocket. No sizable pleural effusion pocket to drain. Clinically patient states his pain is a bit better controlled, he is able to cough and occasionally bring up some phlegm. Lung sounds are positive for some scattered rhonchi, overall less congested. He is on 6 L per nasal cannula, his pulse ox is 96%, however when not FiO2 was attempted to be weaned down, patient did have some desaturation issues down to 80, and became short of breath, and anxious, and his oxygen was increased back up to 6 liters, his pulse ox subsequently recovered. His labs today were reviewed, no CBC, BMP showed a sodium of 136, potassium is 4.3, CO2 was 32, renal profile remains normal. Vital signs are stable, patient is afebrile. Encourage ambulation. Sputum cultures pending, patient is on empiric antibiotic form of Zosyn Objective - Vital Signs Vital signs: Vital Signs Temp 97.5 F L 06/28/18 15:00 Pulse 95 06/28/18 15:00 Resp 16 06/28/18 15:00 BP 105/76 06/28/18 07:35 Pulse Ox 92 L 06/28/18 15:00 Intake & Output 06/27/18 06/28/18 06/28/18 18:59 06:59 18:59 Intake Total 300 Output Total 1625 Balance -1325 Intake: Oral 300 Output: Urine 1625 Straight 500 Other: Voiding Method Toilet Toilet # Voids 0 1 1 # Bowel Movements 1 0 - Exam Gen. appearance the patient comfortable, in no acute distress. Currently on 6 L high flow nasal cannula. Head exam was generally normal. There was no scleral icterus or corneal arcus. Mucous membranes were moist. Neck was supple and without jugular venous distension, thyromegaly, or carotid bruits. Carotids were easily palpable bilaterally. There was no adenopathy. Lungs sounds are positive for a few scattered rhonchi , no significant wheezing . Breath sounds are diminished in lung bases bilaterally. No skeletal deformities at this point in time. Cardiac exam revealed the PMI to be normally situated and sized. The rhythm was regular and no extrasystoles were noted during several minutes of auscultation. The first and second heart sounds were normal and physiologic splitting of the second heart sound was noted. There were no murmurs, rubs, clicks, or gallops. Abdominal exam revealed normal bowel sounds. The abdomen was soft, non-tender, and without masses, organomegaly, or appreciable enlargement of the abdominal aorta. Examination of the extremities revealed easily palpable radial, femoral and pedal pulses. There was no cyanosis, clubbing or edema. Examination of the skin revealed no evidence of significant rashes, suspicious appearing nevi or other concerning lesions. Neurologically awake and alert and there is no focal neurological deficit. - Labs CBC & Chem 7: 06/27/18 09:14 06/28/18 08:41 Labs: Abnormal Lab Results - Last 24 Hours (Table) 06/28/18 06/28/18 Range/Units 03:07 08:41 Sodium 136 L (137-145) mmol/L Carbon Dioxide 32 H (22-30) mmol/L Urine Protein Trace H (Negative) Urine Ketones 1+ H (Negative) Ur Leukocyte Esterase Trace H (Negative) Urine WBC 7 H (0-5) /hpf Urine Mucus Rare H (None) /hpf Microbiology - Last 24 Hours (Table) 06/27/18 09:55 Gram Stain - Preliminary Sputum Sputum Culture - Preliminary Assessment and Plan Plan: Assessment: 1 chest wall pain related to 3 level rib fracture on the left involving the seventh eighth and ninth rib. This is related to a traumatic injury/fall which came in the setting of a syncope. 2 advanced oxygen-dependent COPD with an FEV1 of 33% of predicted 3 chronic hypoxic respiratory failure secondary to above 4 shortness of breath and chest wall pain secondary to follow left-sided rib fractures 5 syncope, exact circumstances is not clear, in fact is not even clear the patient had a syncope versus a fall and for that reason the records will be obtained from [facility] and [place] for further insight on this syncopal episode. 6 prostate cancer 7 obstructive sleep apnea 8 ascending aortic aneurysm measuring 4.2 cm in size on prior CAT scan in the most recent echocardiogram from 2017 showed a dilatation of the aortic root measuring 4.5 x 5.1 cm in size. 9 impaired performance and functional capacity secondary to advanced COPD Plan: No sizable pleural effusion to drain. Continue pulmonary toileting, continue pain control, incentive spirometry use, ambulation. Continue empiric antibiotics, sputum cultures pending, patient is afebrile, vitals are stable. We'll continue to follow. I performed a history & physical examination of the patient and discussed their management with my nurse practitioner, Jody Johnson. I reviewed the nurse practitioner's note and agree with the documented findings and plan of care. Lung sounds are positive for scattered rhonchi. The findings and the impression was discussed with the patient. I attest to the documentation by the nurse practitioner. Time with Patient: Less than 30
[2018-06-28] MEDS: MAGNESIUM HYDROXIDE 2,400 MG/10 ML CUP PO PRN (18:09)
[2018-06-28 18:21] LABS: ABG Base Excess 8.1 mmol/L; ABG HCO3 33 mmol/L (21-25); ABG Oxygen Saturation 87.2 % (94-97); ABG PCO2 53 mmHg (35-45); ABG TCO2 35 mmol/L (19-24)
[2018-06-28 18:41] LABS: ABG PO2 51 mmHg (83-108)
--- NOTE | 2018-06-28 19:46 | CT ---
EXAMINATION TYPE: CT brain wo con DATE OF EXAM: 06/28/2018 COMPARISON: None HISTORY: Confusion CT DLP: mGycm Automated exposure control for dose reduction was used. FINDINGS: There is left temporal craniotomy defect. There is right frontal craniotomy defect. There is large ar ea of hypodensity in the rodriguez-white matter of both frontal lobes. There is no midline shift. There is no sign of intracranial hemorrhage. There is hypodensity in the anterior left temporal lobe in the m iddle cranial fossa. IMPRESSION: ENCEPHALOMALACIA IN BOTH FRONTAL LOBES AND THE ANTERIOR LEFT TEMPORAL LOBE. PREVIOUS SURGERY. NO ACUT E INTRACRANIAL ABNORMALITY.
[2018-06-28] MEDS: LISINOPRIL 2.5 MG TAB PO SCH (20:41)
[2018-06-28] MEDS: THEOPHYLLINE 24 HOUR 200 MG CAP.ER.24H PO SCH (20:42)
[2018-06-28] MEDS: predniSONE 20 MG TAB PO SCH (22:52)
--- NOTE | 2018-06-28 23:35 | PN ---
PROGRESS NOTE DATE OF SERVICE: 06/28/2018 PRESENTING COMPLAINT: Short of breath. INTERVAL HISTORY: This is a patient with bilateral pneumonia and recent multiple bilateral rib fractures secondary to a fall. He also had renal failure when he came in, which is corrected. Patient has remained short of breath, with cough; gets easily tired; quite a bit of pain medications present. at the bedside. Tolerating a diet. Does feel tired. REVIEW OF SYSTEMS: Done for constitutional, cardiovascular, GI, pulmonary, musculoskeletal; relevant findings as above. CURRENT MEDICATIONS: Reviewed. They include IV Zosyn, DuoNeb, theophylline. PHYSICAL EXAMINATION: Temperature 97.5, pulse 95, respiration 20, blood pressure 119/89, pulse ox 92% on 6 L. GENERAL APPEARANCE: Sitting up, tired-appearing, short of breath. EYES: Pupils equal. Conjunctivae normal. HEENT: External appearance of nose and ears normal. Oral cavity normal. NECK: JVD not raised. Mass not palpable. RESPIRATORY: Effort increased. LUNGS: Diminished breath sounds crackles. CARDIOVASCULAR: First and second sounds normal. No edema. ABDOMEN: Soft, nontender. Liver and spleen not palpable. LYMPHATIC: No lymph node palpable in neck or axillae. PSYCHIATRY: Rather tired-appearing. Answering questions. DERMATOLOGICAL: Diffuse bruising and dryness. INVESTIGATIONS: Potassium 4.3, bicarb 32, BUN 8, creatinine 0.98. Blood gas showed pH of 7.4, pCO2 of 51, bicarb 33. ASSESSMENT: 1. Bilateral pneumonia. Suspect gram-negative organism. Slow to respond. 2. Multiple bilateral rib fractures causing acute on chronic pain secondary to a recent fall. 3. Acute renal failure, probably acute tubular necrosis from nonsteroidals as well as Lasix, now resolved. 4. Bilateral rib fractures secondary to fall. 5. Acute chronic obstructive pulmonary disease exacerbation in an ex-smoker, slow to respond. 6. Obstructive sleep apnea. Uses CPAP machine. 7. Prostate cancer, stable. 8. Ascending aortic aneurysm, 4.2 cm. 9. Restless legs syndrome. 10.Acute hypoxic respiratory failure from underlying pneumonia and chronic obstructive pulmonary disease, worsening. 11.Chronic hypoxic respiratory failure, on 4 L oxygen, from underlying chronic obstructive pulmonary disease. 12.Anxiety not otherwise specified. 13.Dilated cardiomyopathy, ejection fraction 40% to 45%, for further workup as an outpatient. PLAN: I had a lengthy talk with the patient and his . I did explain that at the present time all possible had been given. I also did talk to Dr. Altman. At this point just wait and watch. Also spoke to patient's daughter, Aide, telephone . I did explain patient's overall guarded prognosis. After I got the blood gases, then I had the nurse speak to Dr. Altman. Also because the patient has become lethargic and because of a lot of pain medications, I did stop patient's Dilaudid and the Xanax. I described the pros and cons to both the patient and his and the daughter. A total of about 1 hour was spent today with over 25-40 minutes of discussion. CASI / HANN: [id number] /
[2018-06-29] MEDS: IPRATROPIUM-ALBUTEROL 3 ML NEB INHALATION SCH ×6 (00:05→20:21)
[2018-06-29] MEDS: PIPERACILLIN-TAZOBACTAM 3.375 GM in DEXTROSE/WATER 1 50ML.BAG IVPB SCH ×4 (00:41→23:14)
[2018-06-29] MEDS: HEPARIN SODIUM,PORCINE 5,000 UNIT/ML 1 ML VIAL SQ SCH ×4 (00:41→23:14)
[2018-06-29] MEDS: FORMOTEROL FUMARATE 20 MCG/2 ML NEBU INHALATION SCH ×2 (07:49→20:21)
[2018-06-29] MEDS: BUDESONIDE 1 MG/2 ML NEBU INHALATION SCH ×2 (07:49→20:21)
[2018-06-29] MEDS: LIDOCAINE 4% CREAM 5 GM TUBE TOPICAL SCH (08:29)
[2018-06-29] MEDS: LIDOCAINE 5% PATCH TOPICAL SCH (08:29)
[2018-06-29] MEDS: SPIRONOLACTONE 25 MG TAB PO SCH (08:30)
[2018-06-29] MEDS: predniSONE 20 MG TAB PO SCH (08:30)
[2018-06-29] MEDS: TRIAMCINOLONE 0.1% CREAM 80 GM TUBE TOPICAL SCH ×4 (08:30→21:15)
[2018-06-29] MEDS: guaiFENesin 600 MG TABLET.ER PO SCH ×2 (08:31→20:25)
[2018-06-29] MEDS: ASPIRIN 81 MG PO SCH (08:32)
[2018-06-29] MEDS: FAMOTIDINE 20 MG TAB PO SCH ×2 (08:32→20:24)
[2018-06-29] MEDS: MONTELUKAST 10 MG TAB PO SCH (08:32)
[2018-06-29] MEDS: OXYMETAZOLINE 0.05% NASL SPRAY 1 SPRAY BOTTLE EA NOSTRIL SCH ×2 (08:51→20:28)
--- NOTE | 2018-06-29 13:59 | P.PN ---
Subjective Progress Note Date: 06/29/18 Principal diagnosis: Dyspnea secondary to chest wall pain secondary to rib fractures from a recent trauma/fall This is a 70-year-old male patient with known history of advanced oxygen- dependent COPD who is coming to the hospital because of pain in his chest and some shortness of breath. The patient is very well-known to me. He is a patient was being followed up in our office. Of taking care of this patient in regards to his COPD and his last hospitalization was in 2017 for an acute COPD exacerbation. He is oxygen dependent. The patient was in a trip to [place] and he had a what seems to be a syncopal episode. Is not clear whether this was a true syncope versus a fall. The patient was hospitalized in a hospital in [place]. The patient was diagnosed having multilevel rib fracture. The patient had workup for his syncope and workup apparently was negative and the patient was discharged home. Within a few days of discharge, the patient continued to have chest pain. The pain medications that was offered was not enough. The sample was getting significantly uncomfortable and more short of breath and he was also getting some cough and congestion and he was unable to His respiratory secretions and for that reason he decided to come into the hospital. In the hospital the PA chest x-ray showed no acute abnormalities to indicate rib fractures. There was evidence of pneumonia. The rib views were obtained and the patient was found to have fractures of the posterior lateral seventh and eighth and ninth rib on the left. He has a lidocaine patch applied to that area. He is also taking oxycodone 15 mg every 4 hours. The patient is still having pain and the pain is quite extensive and is estimated to be around 10 out of 10 in severity. Unable to use the incentive spirometer. He is able to speak full sentences. Family is at the bedside. No significant chest wall deformity or bruising on inspection. No hemoptysis. No pleurisy. No angina. No swelling lower extremities. No recurrent episodes of syncope since then. No focal neurological deficit. No seizure activity. On 06/24/2018 patient seen in follow-up on surgical floor. He states he is having significant amount of chest wall pain, exacerbated by any movement and ambulation. Patient is receiving a combination of OxyContin on as-needed basis , and Dilaudid for breakthrough pain, he only received 1 dose of Dilaudid added last night, now his pain seems to be very severe. He is short of breath related to limitation of his respiratory effort and air to pain. He is not able to cough effectively. He is compliant with his incentive spirometry, and is able to achieve 1250 on it today. Lung sounds reveal a scattered rhonchi. His FiO2 is currently at 4 L per nasal cannula, he is afebrile, slightly tachycardic with a rate of 103 BPM. Mildly short of breath, with conversation. His labs were reviewed, shows the CBC of 6.2, hemoglobin of 15.6, potassium is 3.0, chloride is 97, CO2 is 39, BUN is 28, creatinine is 1.1. Patient is receiving nebulized bronchodilators, Singulair, Zosyn, and theophylline. As he will be replaced per protocol, and his oxycodone will be switched to 50 mg every 6 hours in a scheduled basis or better pain control. On 06/25/2018 patient seen in follow-up. This morning patient's oxygenation requirement has increased, patient was more short of breath, also walks was 86% on 4 L, FiO2 was been increased to 6 L, today's chest x-ray has been reviewed, and showed mild persistent patchy density at the right medial lung base, improved aeration in the left lung base, small pleural effusions. Lung sounds are positive for bibasilar crackles, and a dose of IV Lasix was administered IV fluids were cut down to KVO. Patient's chest wall pain is better controlled today, and he is on OxyContin 15 mg every 6 hours [id number], and Dilaudid for breakthrough pain. Compliant with his incentive spirometry, able to achieve 5327-6448 mL on the today. Lung sounds reveal scattered rhonchi, overall better air entry noted bilaterally. He is able to ambulate, no recurrence of syncope during admission. Continue current medical treatment, encourage deep breathing and coughing, and pulmonary toileting. On 06/26/2018 patient seen in follow-up on medical surgical floor on the fourth floor. He states he feels more chest congestion, still has ongoing issues with pain control due to multiple left-sided rib fractures. Currently remains on OxyContin 15 mg every 6 hours, and dilated for breakthrough pain which is given infrequently. Lung sounds are positive for scattered rhonchi, patient is currently on 6 L per high flow nasal cannula, and his pulse ox is 89%. He is afebrile, vital signs are stable, there has been no recurrence of syncope. Today's labs have been reviewed, no CBC has been a BMP shows sodium of 139, potassium is 4.2, chloride is 99, CO2 34, renal profile is within normal limits. Patient denies any fever or chills, no lightheadedness or dizziness. Continue to encourage incentive spirometry use On 06/27/2018 patient seen in follow-up on medical surgical floor. His pain is a bit better controlled today, lung sounds are positive for some scattered rhonchi, overall seems to be less congested compared to yesterday's exam. At times his pulse ox is as low as 86%, improves with deep breathing and coughing, currently on 6 L per high flow nasal cannula. Continues on IV Zosyn, nebulized bronchodilators, obtain repeat chest x-ray today, continue with current medical treatment. Today's lab work has been reviewed, no leukocytosis, electrolytes and renal profile are within normal limits. On 06/28/2018 patient seen in follow-up on medical surgical floor. Yesterday's chest x-ray has been reviewed, and showed small bilateral pleural effusions, some patchy left basilar atelectasis versus a developing infiltrate. On a background of COPD. Chest ultrasound was completed, and showed only 1 cm right pleural effusion pocket and 3.3 cm of left pleural effusion pocket. No sizable pleural effusion pocket to drain. Clinically patient states his pain is a bit better controlled, he is able to cough and occasionally bring up some phlegm. Lung sounds are positive for some scattered rhonchi, overall less congested. He is on 6 L per nasal cannula, his pulse ox is 96%, however when not FiO2 was attempted to be weaned down, patient did have some desaturation issues down to 80, and became short of breath, and anxious, and his oxygen was increased back up to 6 liters, his pulse ox subsequently recovered. His labs today were reviewed, no CBC, BMP showed a sodium of 136, potassium is 4.3, CO2 was 32, renal profile remains normal. Vital signs are stable, patient is afebrile. Encourage ambulation. Sputum cultures pending, patient is on empiric antibiotic form of Zosyn. The patient was seen again today 06/29/2018 in follow-up on the regular medical floor. He is currently sitting up in a chair at the bedside. He is more awake and alert today as compared to yesterday. Some of his narcotics and anxiolytics have been backed off on. Yesterday's blood gases on 44% FiO2 revealed a PaO2 of 51, pCO2 53, pH 7.40. He still needs increased encouragement regarding use of the incentive spirometer and cough and deep breathing exercises. He is currently maintaining O2 saturations in the 90s on 8 L high flow nasal cannula. Sputum cultures pending. He remains on DuoNeb inhalations, Pulmicort and Perforomist inhalations, prednisone taper. He is also on Zosyn. Objective - Vital Signs Vital signs: Vital Signs Temp 98.8 F 06/29/18 05:40 Pulse 100 06/29/18 11:43 Resp 18 06/29/18 11:43 BP 119/82 06/29/18 05:40 Pulse Ox 91 L 06/29/18 07:50 Intake & Output 06/28/18 06/29/18 06/29/18 18:59 06:59 18:59 Intake Total 250 Output Total 1800 350 Balance -1550 -350 Intake: Oral 250 Output: Urine 1800 350 Other: Voiding Method Toilet # Voids 1 0 2 # Bowel Movements 0 0 - Exam - Exam Gen. appearance the patient comfortable, in no acute distress. Currently on 6 L high flow nasal cannula. Head exam was generally normal. There was no scleral icterus or corneal arcus. Mucous membranes were moist. Neck was supple and without jugular venous distension, thyromegaly, or carotid bruits. Carotids were easily palpable bilaterally. There was no adenopathy. Lungs sounds are positive for a few scattered rhonchi , no significant wheezing . Breath sounds are diminished in lung bases bilaterally. No skeletal deformities at this point in time. Cardiac exam revealed the PMI to be normally situated and sized. The rhythm was regular and no extrasystoles were noted during several minutes of auscultation. The first and second heart sounds were normal and physiologic splitting of the second heart sound was noted. There were no murmurs, rubs, clicks, or gallops. Abdominal exam revealed normal bowel sounds. The abdomen was soft, non-tender, and without masses, organomegaly, or appreciable enlargement of the abdominal aorta. Examination of the extremities revealed easily palpable radial, femoral and pedal pulses. There was no cyanosis, clubbing or edema. Examination of the skin revealed no evidence of significant rashes, suspicious appearing nevi or other concerning lesions. Neurologically awake and alert and there is no focal neurological deficit. - Labs CBC & Chem 7: 06/27/18 09:14 06/28/18 08:41 Labs: Abnormal Lab Results - Last 24 Hours (Table) 06/28/18 Range/Units 18:18 ABG pCO2 53 H (35-45) mmHg ABG pO2 51 L* (83-108) mmHg ABG HCO3 33 H (21-25) mmol/L ABG Total CO2 35 H (19-24) mmol/L ABG O2 Saturation 87.2 L (94-97) % Assessment and Plan Assessment: Assessment: 1 chest wall pain related to 3 level rib fracture on the left involving the seventh eighth and ninth rib. This is related to a traumatic injury/fall which came in the setting of a syncope. 2 advanced oxygen-dependent COPD with an FEV1 of 33% of predicted 3 chronic hypoxic respiratory failure secondary to above 4 shortness of breath and chest wall pain secondary to follow left-sided rib fractures 5 syncope, exact circumstances is not clear, in fact is not even clear the patient had a syncope versus a fall and for that reason the records will be obtained from [facility] and [place] for further insight on this syncopal episode. 6 prostate cancer 7 obstructive sleep apnea 8 ascending aortic aneurysm measuring 4.2 cm in size on prior CAT scan in the most recent echocardiogram from 2017 showed a dilatation of the aortic root measuring 4.5 x 5.1 cm in size. 9 impaired performance and functional capacity secondary to advanced COPD Plan: The patient was seen and evaluated Dr. Altman. He has been slow to progress. He had a long discussion with the patient and his regarding excess narcotic use in the ability to continue to deep breathe. He is encouraged regarding the increased use of the incentive spirometer. He is encouraged regarding the increased activity and be up ambulating in hallway. We will continue to titrate down the FiO2 will maintaining O2 saturations greater than 90%. Continue current pulmonary medications. Continue Zosyn. We will continue to follow. I, the cosigning physician, performed a history & physical examination of the patient. Lungs sounds bilateral wheezing, diminished throughout. Maintaining good O2 saturations in the 90s on 8 L high flow nasal cannula. I discussed the assessment and plan of care with my nurse practitioner, Ling Matthews. I attest to the above note as dictated by her.
[2018-06-29 15:19] VITALS: BMI 27.1
--- NOTE | 2018-06-29 17:30 | PN ---
PROGRESS NOTE DATE OF SERVICE: 06/29/2018 PRESENTING COMPLAINT: Short of breath. INTERVAL HISTORY: This patient presented with bilateral pneumonia with recent multiple bilateral rib fractures secondary to fall, also had renal failure when he came in that has resolved. The patient is getting delirious with pain medications and this was cut back yesterday. The patient did have a bowel movement yesterday, tolerating a diet. The patient has been using the incentive spirometry. I had a long talk with his daughter yesterday and I also discussed with Dr. Altman. REVIEW OF SYSTEMS: Done for constitutional, cardiovascular, GI, pulmonary, musculoskeletal; relevant findings as above. CURRENT MEDICATIONS: Reviewed that include: 1. DuoNeb. 2. Nebulized Pulmicort. EXAMINATION: Temperature 99, pulse 111, respirations 16, blood pressure 114/69, pulse ox 93% on 6L. GENERAL APPEARANCE: Sitting up in a chair, awake, tired, short of breath. EYES: Pupils equal. Conjunctivae normal. HEENT: External nose and ears normal. Oral cavity normal. NECK: JVD not raised. Mass not palpable. RESPIRATORY: Effort increased. LUNGS: Decreased breath sounds. Prolonged expiration. CARDIOVASCULAR: First and second sounds normal. No edema. ABDOMEN: Soft, nontender. Liver and spleen not palpable. PSYCHIATRY: Awake, answering questions appropriately. DERMATOLOGICAL: Diffuse bruising and dry skin. INVESTIGATIONS: Blood gases from yesterday were noted. ASSESSMENT: 1. Bilateral pneumonia, suspect gram-negative organism, slow to respond. 2. Multiple bilateral rib fractures causing acute on chronic pain secondary to recent fall. 3. Acute renal failure, probably acute tubular necrosis from nonsteroidal as well as Lasix, now resolved. 4. Bilateral rib fractures secondary to fall causing pain. 5. Acute chronic obstructive pulmonary disease exacerbation in an ex-smoker, slow to respond. 6. Obstructive sleep apnea, uses CPAP machine. 7. Prostate cancer, stable. 8. Ascending aortic aneurysm, 4.2 cm. 9. Restless legs syndrome. 10.Acute hypoxic respiratory failure from underlying pneumonia and chronic obstructive pulmonary disease, worsening. 11.Chronic hypoxic respiratory failure on 4L oxygen from underlying chronic obstructive pulmonary disease. 12.Anxiety, not otherwise specified. 13.Dilated cardiomyopathy, ejection fraction 40%-45%. No further workup as an outpatient. 14.Acute delirium, multifactorial. PLAN: I had a talk with the patient and the and did state that the patient's Xanax and Dilaudid was discontinued yesterday. We will also cut back on the OxyContin and make it every 6 hours p.r.n. The patient also on prednisone 40 mg. since the patient's renal function is normal, will try NSAIDs for additional for the pain. MMODL / IJN: [id number] /
[2018-06-29] MEDS: NAPROXEN 250 MG TAB PO SCH ×2 (18:13→21:15)
[2018-06-29] MEDS: LISINOPRIL 2.5 MG TAB PO SCH (20:25)
[2018-06-29] MEDS: THEOPHYLLINE 24 HOUR 200 MG CAP.ER.24H PO SCH (20:26)
[2018-06-30] MEDS: IPRATROPIUM-ALBUTEROL 3 ML NEB INHALATION SCH ×7 (00:12→23:58)
[2018-06-30] MEDS: SPIRONOLACTONE 25 MG TAB PO SCH (07:58)
[2018-06-30] MEDS: NAPROXEN 250 MG TAB PO SCH ×2 (07:59→21:50)
[2018-06-30] MEDS: FAMOTIDINE 20 MG TAB PO SCH ×2 (07:59→21:50)
[2018-06-30] MEDS: ASPIRIN 81 MG PO SCH (07:59)
[2018-06-30] MEDS: guaiFENesin 600 MG TABLET.ER PO SCH ×2 (07:59→21:50)
[2018-06-30] MEDS: OXYMETAZOLINE 0.05% NASL SPRAY 1 SPRAY BOTTLE EA NOSTRIL SCH ×2 (08:00→21:51)
[2018-06-30] MEDS: predniSONE 20 MG TAB PO SCH (08:00)
[2018-06-30] MEDS: TRIAMCINOLONE 0.1% CREAM 80 GM TUBE TOPICAL SCH ×3 (08:00→21:51)
[2018-06-30] MEDS: MONTELUKAST 10 MG TAB PO SCH (08:00)
[2018-06-30] MEDS: LIDOCAINE 4% CREAM 5 GM TUBE TOPICAL SCH (08:00)
[2018-06-30] MEDS: LIDOCAINE 5% PATCH TOPICAL SCH (08:01)
[2018-06-30] MEDS: PIPERACILLIN-TAZOBACTAM 3.375 GM in DEXTROSE/WATER 1 50ML.BAG IVPB SCH ×2 (08:30→16:27)
[2018-06-30] MEDS: HEPARIN SODIUM,PORCINE 5,000 UNIT/ML 1 ML VIAL SQ SCH ×2 (08:30→16:26)
[2018-06-30] MEDS: BUDESONIDE 1 MG/2 ML NEBU INHALATION SCH ×2 (08:53→19:57)
[2018-06-30] MEDS: FORMOTEROL FUMARATE 20 MCG/2 ML NEBU INHALATION SCH ×2 (08:53→19:57)
[2018-06-30 09:11] LABS: Basophils # (A) 0.1 k/uL (0-0.2); Basophils % (A) 1 %; Eosinophils # (A) 0.1 k/uL (0-0.7); Eosinophils % (A) 0 %; HCT 48.3 % (39.0-53.0); Hypochromasia Slight; Lymphocytes # (A) 0.7 k/uL (1.0-4.8); Lymphocytes % (A) 6 %; MCHC 31.1 g/dL (31.0-37.0); MCV 99.8 fL (80.0-100.0); Macrocytosis Slight; Mean Platelet Volume 7.2; Monocytes # (A) 0.5 k/uL (0-1.0); Monocytes % (A) 5 %; Neutrophils # (A) 9.6 k/uL (1.3-7.7); Neutrophils % (A) 86 %; Platelet Count 311 k/uL (150-450); RBC 4.84 m/uL (4.30-5.90); RDW 14.5 % (11.5-15.5); WBC 11.1 k/uL (3.8-10.6)
[2018-06-30 09:22] LABS: Anion Gap 7 mmol/L; Blood Urea Nitrogen 23 mg/dL (9-20); Calcium 9.3 mg/dL (8.4-10.2); Carbon Dioxide 31 mmol/L (22-30); Chloride 99 mmol/L (98-107); Glucose 88 mg/dL (74-99); Potassium 4.7 mmol/L (3.5-5.1); Sodium 137 mmol/L (137-145)
--- NOTE | 2018-06-30 12:09 | P.PN ---
Subjective Progress Note Date: 06/30/18 Principal diagnosis: Dyspnea secondary to chest wall pain secondary to rib fractures from a recent trauma/fall This is a 70-year-old male patient with known history of advanced oxygen- dependent COPD who is coming to the hospital because of pain in his chest and some shortness of breath. The patient is very well-known to me. He is a patient was being followed up in our office. Of taking care of this patient in regards to his COPD and his last hospitalization was in 2017 for an acute COPD exacerbation. He is oxygen dependent. The patient was in a trip to [place] and he had a what seems to be a syncopal episode. Is not clear whether this was a true syncope versus a fall. The patient was hospitalized in a hospital in [place]. The patient was diagnosed having multilevel rib fracture. The patient had workup for his syncope and workup apparently was negative and the patient was discharged home. Within a few days of discharge, the patient continued to have chest pain. The pain medications that was offered was not enough. The sample was getting significantly uncomfortable and more short of breath and he was also getting some cough and congestion and he was unable to His respiratory secretions and for that reason he decided to come into the hospital. In the hospital the PA chest x-ray showed no acute abnormalities to indicate rib fractures. There was evidence of pneumonia. The rib views were obtained and the patient was found to have fractures of the posterior lateral seventh and eighth and ninth rib on the left. He has a lidocaine patch applied to that area. He is also taking oxycodone 15 mg every 4 hours. The patient is still having pain and the pain is quite extensive and is estimated to be around 10 out of 10 in severity. Unable to use the incentive spirometer. He is able to speak full sentences. Family is at the bedside. No significant chest wall deformity or bruising on inspection. No hemoptysis. No pleurisy. No angina. No swelling lower extremities. No recurrent episodes of syncope since then. No focal neurological deficit. No seizure activity. On 06/24/2018 patient seen in follow-up on surgical floor. He states he is having significant amount of chest wall pain, exacerbated by any movement and ambulation. Patient is receiving a combination of OxyContin on as-needed basis , and Dilaudid for breakthrough pain, he only received 1 dose of Dilaudid added last night, now his pain seems to be very severe. He is short of breath related to limitation of his respiratory effort and air to pain. He is not able to cough effectively. He is compliant with his incentive spirometry, and is able to achieve 1250 on it today. Lung sounds reveal a scattered rhonchi. His FiO2 is currently at 4 L per nasal cannula, he is afebrile, slightly tachycardic with a rate of 103 BPM. Mildly short of breath, with conversation. His labs were reviewed, shows the CBC of 6.2, hemoglobin of 15.6, potassium is 3.0, chloride is 97, CO2 is 39, BUN is 28, creatinine is 1.1. Patient is receiving nebulized bronchodilators, Singulair, Zosyn, and theophylline. As he will be replaced per protocol, and his oxycodone will be switched to 50 mg every 6 hours in a scheduled basis or better pain control. On 06/25/2018 patient seen in follow-up. This morning patient's oxygenation requirement has increased, patient was more short of breath, also walks was 86% on 4 L, FiO2 was been increased to 6 L, today's chest x-ray has been reviewed, and showed mild persistent patchy density at the right medial lung base, improved aeration in the left lung base, small pleural effusions. Lung sounds are positive for bibasilar crackles, and a dose of IV Lasix was administered IV fluids were cut down to KVO. Patient's chest wall pain is better controlled today, and he is on OxyContin 15 mg every 6 hours [id number], and Dilaudid for breakthrough pain. Compliant with his incentive spirometry, able to achieve 8717-9163 mL on the today. Lung sounds reveal scattered rhonchi, overall better air entry noted bilaterally. He is able to ambulate, no recurrence of syncope during admission. Continue current medical treatment, encourage deep breathing and coughing, and pulmonary toileting. On 06/26/2018 patient seen in follow-up on medical surgical floor on the fourth floor. He states he feels more chest congestion, still has ongoing issues with pain control due to multiple left-sided rib fractures. Currently remains on OxyContin 15 mg every 6 hours, and dilated for breakthrough pain which is given infrequently. Lung sounds are positive for scattered rhonchi, patient is currently on 6 L per high flow nasal cannula, and his pulse ox is 89%. He is afebrile, vital signs are stable, there has been no recurrence of syncope. Today's labs have been reviewed, no CBC has been a BMP shows sodium of 139, potassium is 4.2, chloride is 99, CO2 34, renal profile is within normal limits. Patient denies any fever or chills, no lightheadedness or dizziness. Continue to encourage incentive spirometry use On 06/27/2018 patient seen in follow-up on medical surgical floor. His pain is a bit better controlled today, lung sounds are positive for some scattered rhonchi, overall seems to be less congested compared to yesterday's exam. At times his pulse ox is as low as 86%, improves with deep breathing and coughing, currently on 6 L per high flow nasal cannula. Continues on IV Zosyn, nebulized bronchodilators, obtain repeat chest x-ray today, continue with current medical treatment. Today's lab work has been reviewed, no leukocytosis, electrolytes and renal profile are within normal limits. On 06/28/2018 patient seen in follow-up on medical surgical floor. Yesterday's chest x-ray has been reviewed, and showed small bilateral pleural effusions, some patchy left basilar atelectasis versus a developing infiltrate. On a background of COPD. Chest ultrasound was completed, and showed only 1 cm right pleural effusion pocket and 3.3 cm of left pleural effusion pocket. No sizable pleural effusion pocket to drain. Clinically patient states his pain is a bit better controlled, he is able to cough and occasionally bring up some phlegm. Lung sounds are positive for some scattered rhonchi, overall less congested. He is on 6 L per nasal cannula, his pulse ox is 96%, however when not FiO2 was attempted to be weaned down, patient did have some desaturation issues down to 80, and became short of breath, and anxious, and his oxygen was increased back up to 6 liters, his pulse ox subsequently recovered. His labs today were reviewed, no CBC, BMP showed a sodium of 136, potassium is 4.3, CO2 was 32, renal profile remains normal. Vital signs are stable, patient is afebrile. Encourage ambulation. Sputum cultures pending, patient is on empiric antibiotic form of Zosyn. The patient was seen again today 06/29/2018 in follow-up on the regular medical floor. He is currently sitting up in a chair at the bedside. He is more awake and alert today as compared to yesterday. Some of his narcotics and anxiolytics have been backed off on. Yesterday's blood gases on 44% FiO2 revealed a PaO2 of 51, pCO2 53, pH 7.40. He still needs increased encouragement regarding use of the incentive spirometer and cough and deep breathing exercises. He is currently maintaining O2 saturations in the 90s on 8 L high flow nasal cannula. Sputum cultures pending. He remains on DuoNeb inhalations, Pulmicort and Perforomist inhalations, prednisone taper. He is also on Zosyn. The patient is seen again today 06/30/2018 in follow-up on the regular medical floor. He is currently resting quite comfortably in bed. He denies any worsening shortness of breath, cough or congestion. He is maintaining good O2 saturations in the 90s on 4 L/m per nasal cannula. He is more comfortable today as compared to yesterday. His rib pain is improving. He is on Naprosyn alternating with oxycodone and a Lidoderm patch in place. White count 11.1. Hemoglobin 15.0. Creatinine 0.6. Objective - Vital Signs Vital signs: Vital Signs Temp 98.2 F 06/30/18 07:00 Pulse 104 H 06/30/18 09:16 Resp 18 06/30/18 07:00 BP 127/80 06/30/18 07:00 Pulse Ox 93 L 06/30/18 11:04 Intake & Output 06/29/18 06/30/18 06/30/18 18:59 06:59 18:59 Output Total 950 250 Balance -950 -250 Weight 76.204 kg Output: Urine 950 250 Other: Voiding Method Bedside Commode # Voids 3 1 # Bowel Movements 0 - Exam - Exam Gen. appearance the patient comfortable, in no acute distress. Currently on 6 L high flow nasal cannula. Head exam was generally normal. There was no scleral icterus or corneal arcus. Mucous membranes were moist. Neck was supple and without jugular venous distension, thyromegaly, or carotid bruits. Carotids were easily palpable bilaterally. There was no adenopathy. Lungs sounds are positive for a few scattered rhonchi , no significant wheezing . Breath sounds are diminished in lung bases bilaterally. No skeletal deformities at this point in time. Cardiac exam revealed the PMI to be normally situated and sized. The rhythm was regular and no extrasystoles were noted during several minutes of auscultation. The first and second heart sounds were normal and physiologic splitting of the second heart sound was noted. There were no murmurs, rubs, clicks, or gallops. Abdominal exam revealed normal bowel sounds. The abdomen was soft, non-tender, and without masses, organomegaly, or appreciable enlargement of the abdominal aorta. Examination of the extremities revealed easily palpable radial, femoral and pedal pulses. There was no cyanosis, clubbing or edema. Examination of the skin revealed no evidence of significant rashes, suspicious appearing nevi or other concerning lesions. Neurologically awake and alert and there is no focal neurological deficit. - Labs CBC & Chem 7: 06/30/18 08:17 06/30/18 08:17 Labs: Abnormal Lab Results - Last 24 Hours (Table) 06/30/18 06/30/18 Range/Units 08:17 08:17 WBC 11.1 H (3.8-10.6) k/uL Neutrophils # 9.6 H (1.3-7.7) k/uL Lymphocytes # 0.7 L (1.0-4.8) k/uL Carbon Dioxide 31 H (22-30) mmol/L BUN 23 H (9-20) mg/dL Microbiology - Last 24 Hours (Table) 06/29/18 08:50 Gram Stain - Preliminary Sputum 06/27/18 09:55 Gram Stain - Final Sputum Sputum Culture - Final Corynebacterium striatum Assessment and Plan Assessment: Assessment: 1 chest wall pain related to 3 level rib fracture on the left involving the seventh eighth and ninth rib. This is related to a traumatic injury/fall which came in the setting of a syncope. 2 advanced oxygen-dependent COPD with an FEV1 of 33% of predicted 3 chronic hypoxic respiratory failure secondary to above 4 shortness of breath and chest wall pain secondary to follow left-sided rib fractures 5 syncope, exact circumstances is not clear, in fact is not even clear the patient had a syncope versus a fall and for that reason the records will be obtained from [facility] and [place] for further insight on this syncopal episode. 6 prostate cancer 7 obstructive sleep apnea 8 ascending aortic aneurysm measuring 4.2 cm in size on prior CAT scan in the most recent echocardiogram from 2017 showed a dilatation of the aortic root measuring 4.5 x 5.1 cm in size. 9 impaired performance and functional capacity secondary to advanced COPD Plan: The patient was seen and evaluated Dr. Altman. He is improved today as compared to yesterday. He is encouraged regarding the increased use of the incentive spirometer. He is encouraged regarding the increased activity and be up ambulating in hallway. We will continue to titrate down the FiO2 will maintaining O2 saturations greater than 90%. Continue current pulmonary medications. Continue Zosyn. We will continue to follow. I, the cosigning physician, performed a history & physical examination of the patient. Lungs sounds bilateral wheezing, diminished throughout. Maintaining good O2 saturations in the 90s on 4 L high flow nasal cannula. I discussed the assessment and plan of care with my nurse practitioner, Ling Matthews. I attest to the above note as dictated by her.
--- NOTE | 2018-06-30 16:16 | P.PN ---
Subjective 72-year-old admitted with the multiple rib fractures bilateral pneumonia patient does have COPD use solids and at home on and off patient does have sleep apnea and uses oxygen at nighttime with CPAP as well. Patient is still on 3 L of oxygen imbued air entry into bilateral lung calixto saturating at 90% patient the is clinically fairly doing well will be evaluated for the subacute rehabitation placement PT and OT evaluation tomorrow. Tolerating diet well and has good bowel movements. Constitutional: Denied any fatigue denied any fever. Cardio vascular: denied any chest pain, palpitations Gastrointestinal denied any nausea vomiting Pulmonary: Denied any shortness of breath cough Neurologic denied any new focal deficits Objective - Vital Signs Vital signs: Vital Signs Temp 98.7 F 06/30/18 14:20 Pulse 96 06/30/18 16:10 Resp 20 06/30/18 14:20 BP 107/82 06/30/18 14:20 Pulse Ox 90 L 06/30/18 14:20 Intake & Output 06/29/18 06/30/18 06/30/18 18:59 06:59 18:59 Output Total 950 250 Balance -950 -250 Weight 76.204 kg Output: Urine 950 250 Other: Voiding Method Bedside Commode # Voids 3 1 2 # Bowel Movements 0 700 - Exam PHYSICAL EXAMINATION: GENERAL: The patient is alert and oriented x3, not in any acute distress. Well developed, well nourished. HEENT: Pupils are round and equally reacting to light. EOMI. No scleral icterus. No conjunctival pallor. Normocephalic, atraumatic. No pharyngeal erythema. No thyromegaly. CARDIOVASCULAR: S1 and S2 present. No murmurs, rubs, or gallops. PULMONARY: Decreased air entry into bilateral lung calixto. ABDOMEN: Soft, nontender, nondistended, normoactive bowel sounds. No palpable organomegaly. MUSCULOSKELETAL: No joint swelling or deformity. EXTREMITIES: No cyanosis, clubbing, or pedal edema. NEUROLOGICAL: Gross neurological examination did not reveal any focal deficits. SKIN: No rashes. - Labs CBC & Chem 7: 06/30/18 08:17 06/30/18 08:17 Labs: Abnormal Lab Results - Last 24 Hours (Table) 06/30/18 06/30/18 Range/Units 08:17 08:17 WBC 11.1 H (3.8-10.6) k/uL Neutrophils # 9.6 H (1.3-7.7) k/uL Lymphocytes # 0.7 L (1.0-4.8) k/uL Carbon Dioxide 31 H (22-30) mmol/L BUN 23 H (9-20) mg/dL Microbiology - Last 24 Hours (Table) 06/29/18 08:50 Gram Stain - Preliminary Sputum 06/27/18 09:55 Gram Stain - Final Sputum Sputum Culture - Final Corynebacterium striatum Assessment and Plan Plan: -Multiple rib fractures leading to bilateral pneumonia can you with present antibiotics -Toxic encephalopathy secondary to opiates which were discontinued patient is on nonsteroidal anti-intermittent medications -Bilaterally fractures -COPD with acute exacerbation patient will be continued on systemic steroids inhalational treatments -Obstructive sleep apnea -Ascending aortic aneurysm -History of prostate cancer -Acute hypoxic respiratory failure secondary to bilateral pneumonia, rib fractures along with COPD -Dilated cardiomyopathy systolic dysfunction ejection fraction of 45-50% mildly hypervolemic continue with the Lasix
[2018-06-30] MEDS: DOCUSATE 100 MG CAP PO SCH (18:02)
[2018-06-30] MEDS: LISINOPRIL 2.5 MG TAB PO SCH (21:50)
[2018-06-30] MEDS: THEOPHYLLINE 24 HOUR 200 MG CAP.ER.24H PO SCH (21:50)
[2018-07-01] MEDS: PIPERACILLIN-TAZOBACTAM 3.375 GM in DEXTROSE/WATER 1 50ML.BAG IVPB SCH ×4 (01:10→23:56)
[2018-07-01] MEDS: HEPARIN SODIUM,PORCINE 5,000 UNIT/ML 1 ML VIAL SQ SCH ×4 (01:10→23:57)
[2018-07-01] MEDS: FORMOTEROL FUMARATE 20 MCG/2 ML NEBU INHALATION SCH ×2 (08:26→20:40)
[2018-07-01] MEDS: IPRATROPIUM-ALBUTEROL 3 ML NEB INHALATION SCH ×4 (08:26→20:40)
[2018-07-01] MEDS: BUDESONIDE 1 MG/2 ML NEBU INHALATION SCH ×2 (08:26→20:40)
[2018-07-01 08:31] LABS: Calcium 8.9 mg/dL (8.4-10.2); Potassium 4.3 mmol/L (3.5-5.1)
[2018-07-01] MEDS: SPIRONOLACTONE 25 MG TAB PO SCH (08:39)
[2018-07-01] MEDS: MONTELUKAST 10 MG TAB PO SCH (08:40)
[2018-07-01] MEDS: guaiFENesin 600 MG TABLET.ER PO SCH ×2 (08:40→21:10)
[2018-07-01] MEDS: predniSONE 20 MG TAB PO SCH (08:40)
[2018-07-01] MEDS: OXYMETAZOLINE 0.05% NASL SPRAY 1 SPRAY BOTTLE EA NOSTRIL SCH ×2 (08:41→21:23)
[2018-07-01] MEDS: NAPROXEN 250 MG TAB PO SCH ×2 (08:41→21:07)
[2018-07-01] MEDS: FAMOTIDINE 20 MG TAB PO SCH ×2 (08:41→21:07)
[2018-07-01] MEDS: DOCUSATE 100 MG CAP PO SCH ×2 (08:41→21:06)
[2018-07-01] MEDS: ASPIRIN 81 MG PO SCH (08:41)
[2018-07-01] MEDS: LIDOCAINE 4% CREAM 5 GM TUBE TOPICAL SCH (08:42)
[2018-07-01] MEDS: LIDOCAINE 5% PATCH TOPICAL SCH (08:42)
[2018-07-01] MEDS: TRIAMCINOLONE 0.1% CREAM 80 GM TUBE TOPICAL SCH ×3 (08:42→21:11)
--- NOTE | 2018-07-01 11:54 | P.PN ---
Subjective Progress Note Date: 07/01/18 This is a 70-year-old male patient with known history of advanced oxygen- dependent COPD who is coming to the hospital because of pain in his chest and some shortness of breath. The patient is very well-known to me. He is a patient was being followed up in our office. Of taking care of this patient in regards to his COPD and his last hospitalization was in 2017 for an acute COPD exacerbation. He is oxygen dependent. The patient was in a trip to [place] and he had a what seems to be a syncopal episode. Is not clear whether this was a true syncope versus a fall. The patient was hospitalized in a hospital in [place]. The patient was diagnosed having multilevel rib fracture. The patient had workup for his syncope and workup apparently was negative and the patient was discharged home. Within a few days of discharge, the patient continued to have chest pain. The pain medications that was offered was not enough. The sample was getting significantly uncomfortable and more short of breath and he was also getting some cough and congestion and he was unable to His respiratory secretions and for that reason he decided to come into the hospital. In the hospital the PA chest x-ray showed no acute abnormalities to indicate rib fractures. There was evidence of pneumonia. The rib views were obtained and the patient was found to have fractures of the posterior lateral seventh and eighth and ninth rib on the left. He has a lidocaine patch applied to that area. He is also taking oxycodone 15 mg every 4 hours. The patient is still having pain and the pain is quite extensive and is estimated to be around 10 out of 10 in severity. Unable to use the incentive spirometer. He is able to speak full sentences. Family is at the bedside. No significant chest wall deformity or bruising on inspection. No hemoptysis. No pleurisy. No angina. No swelling lower extremities. No recurrent episodes of syncope since then. No focal neurological deficit. No seizure activity. On 06/24/2018 patient seen in follow-up on surgical floor. He states he is having significant amount of chest wall pain, exacerbated by any movement and ambulation. Patient is receiving a combination of OxyContin on as-needed basis , and Dilaudid for breakthrough pain, he only received 1 dose of Dilaudid added last night, now his pain seems to be very severe. He is short of breath related to limitation of his respiratory effort and air to pain. He is not able to cough effectively. He is compliant with his incentive spirometry, and is able to achieve 1250 on it today. Lung sounds reveal a scattered rhonchi. His FiO2 is currently at 4 L per nasal cannula, he is afebrile, slightly tachycardic with a rate of 103 BPM. Mildly short of breath, with conversation. His labs were reviewed, shows the CBC of 6.2, hemoglobin of 15.6, potassium is 3.0, chloride is 97, CO2 is 39, BUN is 28, creatinine is 1.1. Patient is receiving nebulized bronchodilators, Singulair, Zosyn, and theophylline. As he will be replaced per protocol, and his oxycodone will be switched to 50 mg every 6 hours in a scheduled basis or better pain control. On 06/25/2018 patient seen in follow-up. This morning patient's oxygenation requirement has increased, patient was more short of breath, also walks was 86% on 4 L, FiO2 was been increased to 6 L, today's chest x-ray has been reviewed, and showed mild persistent patchy density at the right medial lung base, improved aeration in the left lung base, small pleural effusions. Lung sounds are positive for bibasilar crackles, and a dose of IV Lasix was administered IV fluids were cut down to KVO. Patient's chest wall pain is better controlled today, and he is on OxyContin 15 mg every 6 hours [id number], and Dilaudid for breakthrough pain. Compliant with his incentive spirometry, able to achieve 8452-4988 mL on the today. Lung sounds reveal scattered rhonchi, overall better air entry noted bilaterally. He is able to ambulate, no recurrence of syncope during admission. Continue current medical treatment, encourage deep breathing and coughing, and pulmonary toileting. On 06/26/2018 patient seen in follow-up on medical surgical floor on the fourth floor. He states he feels more chest congestion, still has ongoing issues with pain control due to multiple left-sided rib fractures. Currently remains on OxyContin 15 mg every 6 hours, and dilated for breakthrough pain which is given infrequently. Lung sounds are positive for scattered rhonchi, patient is currently on 6 L per high flow nasal cannula, and his pulse ox is 89%. He is afebrile, vital signs are stable, there has been no recurrence of syncope. Today's labs have been reviewed, no CBC has been a BMP shows sodium of 139, potassium is 4.2, chloride is 99, CO2 34, renal profile is within normal limits. Patient denies any fever or chills, no lightheadedness or dizziness. Continue to encourage incentive spirometry use On 06/27/2018 patient seen in follow-up on medical surgical floor. His pain is a bit better controlled today, lung sounds are positive for some scattered rhonchi, overall seems to be less congested compared to yesterday's exam. At times his pulse ox is as low as 86%, improves with deep breathing and coughing, currently on 6 L per high flow nasal cannula. Continues on IV Zosyn, nebulized bronchodilators, obtain repeat chest x-ray today, continue with current medical treatment. Today's lab work has been reviewed, no leukocytosis, electrolytes and renal profile are within normal limits. On 06/28/2018 patient seen in follow-up on medical surgical floor. Yesterday's chest x-ray has been reviewed, and showed small bilateral pleural effusions, some patchy left basilar atelectasis versus a developing infiltrate. On a background of COPD. Chest ultrasound was completed, and showed only 1 cm right pleural effusion pocket and 3.3 cm of left pleural effusion pocket. No sizable pleural effusion pocket to drain. Clinically patient states his pain is a bit better controlled, he is able to cough and occasionally bring up some phlegm. Lung sounds are positive for some scattered rhonchi, overall less congested. He is on 6 L per nasal cannula, his pulse ox is 96%, however when not FiO2 was attempted to be weaned down, patient did have some desaturation issues down to 80, and became short of breath, and anxious, and his oxygen was increased back up to 6 liters, his pulse ox subsequently recovered. His labs today were reviewed, no CBC, BMP showed a sodium of 136, potassium is 4.3, CO2 was 32, renal profile remains normal. Vital signs are stable, patient is afebrile. Encourage ambulation. Sputum cultures pending, patient is on empiric antibiotic form of Zosyn. The patient was seen again today 06/29/2018 in follow-up on the regular medical floor. He is currently sitting up in a chair at the bedside. He is more awake and alert today as compared to yesterday. Some of his narcotics and anxiolytics have been backed off on. Yesterday's blood gases on 44% FiO2 revealed a PaO2 of 51, pCO2 53, pH 7.40. He still needs increased encouragement regarding use of the incentive spirometer and cough and deep breathing exercises. He is currently maintaining O2 saturations in the 90s on 8 L high flow nasal cannula. Sputum cultures pending. He remains on DuoNeb inhalations, Pulmicort and Perforomist inhalations, prednisone taper. He is also on Zosyn. The patient is seen again today 06/30/2018 in follow-up on the regular medical floor. He is currently resting quite comfortably in bed. He denies any worsening shortness of breath, cough or congestion. He is maintaining good O2 saturations in the 90s on 4 L/m per nasal cannula. He is more comfortable today as compared to yesterday. His rib pain is improving. He is on Naprosyn alternating with oxycodone and a Lidoderm patch in place. White count 11.1. Hemoglobin 15.0. Creatinine 0.6. On 07/01/2018, the patient is still complaining of pain along the left chest area and the skeletal chest wall muscles in general. His pain is around 6 out of 10 in severity. He is on a lidocaine patch. His taken oxycodone alternating with Naprosyn. I'm not going to give him any more narcotics as the patient was having altered mentation with excessive narcotic use. He is breathing comfortably. He is using incentive spirometer. His main thing is pulse oxing above 90% on 4 L. No hemoptysis. No pleurisy. He has a congested cough is on IV Zosyn. He is ambulating. Is tolerating his diet. No constipation. No other significant events overnight. Objective - Vital Signs Vital signs: Vital Signs Temp 98.2 F 07/01/18 06:34 Pulse 92 07/01/18 08:36 Resp 16 07/01/18 06:34 BP 116/74 07/01/18 06:34 Pulse Ox 91 L 07/01/18 06:34 Intake & Output 06/30/18 07/01/18 07/01/18 18:59 06:59 18:59 Other: Voiding Method Bedside Commode # Voids 2 2 # Bowel Movements 700 - Exam Gen. appearance the patient comfortable, in no acute distress. Currently on 6 L high flow nasal cannula. Head exam was generally normal. There was no scleral icterus or corneal arcus. Mucous membranes were moist. Neck was supple and without jugular venous distension, thyromegaly, or carotid bruits. Carotids were easily palpable bilaterally. There was no adenopathy. Lungs sounds are positive for a few scattered rhonchi , no significant wheezing . Breath sounds are diminished in lung bases bilaterally. No skeletal deformities at this point in time. Cardiac exam revealed the PMI to be normally situated and sized. The rhythm was regular and no extrasystoles were noted during several minutes of auscultation. The first and second heart sounds were normal and physiologic splitting of the second heart sound was noted. There were no murmurs, rubs, clicks, or gallops. Abdominal exam revealed normal bowel sounds. The abdomen was soft, non-tender, and without masses, organomegaly, or appreciable enlargement of the abdominal aorta. Examination of the extremities revealed easily palpable radial, femoral and pedal pulses. There was no cyanosis, clubbing or edema. Examination of the skin revealed no evidence of significant rashes, suspicious appearing nevi or other concerning lesions. Neurologically awake and alert and there is no focal neurological deficit. - Labs CBC & Chem 7: 06/30/18 08:17 07/01/18 07:42 Labs: Abnormal Lab Results - Last 24 Hours (Table) 07/01/18 Range/Units 07:42 BUN 25 H (9-20) mg/dL Microbiology - Last 24 Hours (Table) 06/29/18 08:50 Gram Stain - Preliminary Sputum Sputum Culture - Preliminary Gram Positive Bacilli Isolated Assessment and Plan Plan: 1 chest wall pain related to 3 level rib fracture on the left involving the seventh eighth and ninth rib. This is related to a traumatic injury/fall which came in the setting of a syncope. Pain control in general is improved. The patient is on a combination of Naprosyn, oxycodone and lidocaine patch. Will not offer any further narcotics due to concerns of respiratory suppression and altered mentation. Using incentive spirometer. Currently on prednisone burst taper. IV antibiotic coverage with Zosyn. 2 advanced oxygen-dependent COPD with an FEV1 of 33% of predicted 3 chronic hypoxic respiratory failure secondary to above 4 shortness of breath and chest wall pain secondary to follow left-sided rib fractures 5 syncope, exact circumstances is not clear, in fact is not even clear the patient had a syncope versus a fall and for that reason the records will be obtained from [facility] and [place] for further insight on this syncopal episode. 6 prostate cancer 7 obstructive sleep apnea 8 ascending aortic aneurysm measuring 4.2 cm in size on prior CAT scan in the most recent echocardiogram from 2017 showed a dilatation of the aortic root measuring 4.5 x 5.1 cm in size. 9 impaired performance and functional capacity secondary to advanced COPD ERIC Increased level of activity. Continue Naprosyn. Continue oxycodone. Continue lidocaine patch. No need for any further narcotic medication. Monitor mental status. Prednisone burst taper starting with 40 mg. Continue bronchodilators. We'll continue to follow. Possible discharge in a.m.
--- NOTE | 2018-07-01 13:31 | P.PN ---
Subjective 72-year-old admitted with the multiple rib fractures bilateral pneumonia patient does have COPD use solids and at home on and off patient does have sleep apnea and uses oxygen at nighttime with CPAP as well. Patient is still on 3 L of oxygen imbued air entry into bilateral lung calixto saturating at 90% patient the is clinically fairly doing well will be evaluated for the subacute rehabitation placement PT and OT evaluation tomorrow. Tolerating diet well and has good bowel movements. 07/01/2018 Patient's respiratory status improved requiring a less O2 today. Still has crackles in bilateral lower lung bases good air entry into bilateral lung calixto Constitutional: Denied any fatigue denied any fever. Cardio vascular: denied any chest pain, palpitations Gastrointestinal denied any nausea vomiting Pulmonary: Denied any shortness of breath cough Neurologic denied any new focal deficits Objective - Vital Signs Vital signs: Vital Signs Temp 98.2 F 07/01/18 06:34 Pulse 92 07/01/18 12:50 Resp 16 07/01/18 06:34 BP 116/74 07/01/18 06:34 Pulse Ox 91 L 07/01/18 06:34 Intake & Output 06/30/18 07/01/18 07/01/18 18:59 06:59 18:59 Other: Voiding Method Bedside Commode # Voids 2 2 # Bowel Movements 700 - Exam PHYSICAL EXAMINATION: GENERAL: The patient is alert and oriented x3, not in any acute distress. Well developed, well nourished. HEENT: Pupils are round and equally reacting to light. EOMI. No scleral icterus. No conjunctival pallor. Normocephalic, atraumatic. No pharyngeal erythema. No thyromegaly. CARDIOVASCULAR: S1 and S2 present. No murmurs, rubs, or gallops. PULMONARY: Decreased air entry into bilateral lung calixto. Crackles in bilateral lower lung bases ABDOMEN: Soft, nontender, nondistended, normoactive bowel sounds. No palpable organomegaly. MUSCULOSKELETAL: No joint swelling or deformity. EXTREMITIES: No cyanosis, clubbing, or pedal edema. NEUROLOGICAL: Gross neurological examination did not reveal any focal deficits. SKIN: No rashes. - Labs CBC & Chem 7: 06/30/18 08:17 07/01/18 07:42 Labs: Abnormal Lab Results - Last 24 Hours (Table) 07/01/18 Range/Units 07:42 BUN 25 H (9-20) mg/dL Microbiology - Last 24 Hours (Table) 06/29/18 08:50 Gram Stain - Preliminary Sputum Sputum Culture - Preliminary Gram Positive Bacilli Isolated Assessment and Plan Plan: -Multiple rib fractures leading to bilateral pneumonia can you with present antibiotics -Toxic encephalopathy secondary to opiates which were discontinued patient is on nonsteroidal anti-intermittent medications -Bilaterally fractures -COPD with acute exacerbation patient will be continued on systemic steroids inhalational treatments -Obstructive sleep apnea -Ascending aortic aneurysm -History of prostate cancer -Acute hypoxic respiratory failure secondary to bilateral pneumonia, rib fractures along with COPD -Dilated cardiomyopathy systolic dysfunction ejection fraction of 45-50% mildly hypervolemic continue with the Lasix
[2018-07-01] MEDS: LISINOPRIL 2.5 MG TAB PO SCH (21:06)
[2018-07-01] MEDS: THEOPHYLLINE 24 HOUR 200 MG CAP.ER.24H PO SCH (21:07)
[2018-07-02 06:39] VITALS: BP 118/72; TEMP 98.3
[2018-07-02] MEDS: FORMOTEROL FUMARATE 20 MCG/2 ML NEBU INHALATION SCH (07:09)
[2018-07-02] MEDS: IPRATROPIUM-ALBUTEROL 3 ML NEB INHALATION SCH ×3 (07:09→16:29)
[2018-07-02] MEDS: BUDESONIDE 1 MG/2 ML NEBU INHALATION SCH (07:09)
[2018-07-02] MEDS: HEPARIN SODIUM,PORCINE 5,000 UNIT/ML 1 ML VIAL SQ SCH (08:55)
[2018-07-02] MEDS: OXYMETAZOLINE 0.05% NASL SPRAY 1 SPRAY BOTTLE EA NOSTRIL SCH (08:55)
[2018-07-02] MEDS: PIPERACILLIN-TAZOBACTAM 3.375 GM in DEXTROSE/WATER 1 50ML.BAG IVPB SCH (08:55)
[2018-07-02] MEDS: guaiFENesin 600 MG TABLET.ER PO SCH (08:56)
[2018-07-02] MEDS: LIDOCAINE 4% CREAM 5 GM TUBE TOPICAL SCH (08:56)
[2018-07-02] MEDS: FAMOTIDINE 20 MG TAB PO SCH (08:56)
[2018-07-02] MEDS: ASPIRIN 81 MG PO SCH (08:56)
[2018-07-02] MEDS: TRIAMCINOLONE 0.1% CREAM 80 GM TUBE TOPICAL SCH (08:56)
[2018-07-02] MEDS: MONTELUKAST 10 MG TAB PO SCH (08:56)
[2018-07-02] MEDS: predniSONE 20 MG TAB PO SCH (08:56)
[2018-07-02] MEDS: SPIRONOLACTONE 25 MG TAB PO SCH (08:57)
[2018-07-02] MEDS: DOCUSATE 100 MG CAP PO SCH (09:02)
[2018-07-02] MEDS: NAPROXEN 250 MG TAB PO SCH (09:03)
[2018-07-02 09:29] LABS: Calcium 9.5 mg/dL (8.4-10.2)
[2018-07-02] MEDS: LIDOCAINE 5% PATCH TOPICAL SCH (11:38)
--- NOTE | 2018-07-02 11:41 | P.PN ---
Subjective Progress Note Date: 07/02/18 Principal diagnosis: Dyspnea, related to chest wall pain secondary to rib fractures. Traumatic injury related to fall, COPD This is a 70-year-old male patient with known history of advanced oxygen- dependent COPD who is coming to the hospital because of pain in his chest and some shortness of breath. The patient is very well-known to me. He is a patient was being followed up in our office. Of taking care of this patient in regards to his COPD and his last hospitalization was in 2017 for an acute COPD exacerbation. He is oxygen dependent. The patient was in a trip to [place] and he had a what seems to be a syncopal episode. Is not clear whether this was a true syncope versus a fall. The patient was hospitalized in a hospital in [place]. The patient was diagnosed having multilevel rib fracture. The patient had workup for his syncope and workup apparently was negative and the patient was discharged home. Within a few days of discharge, the patient continued to have chest pain. The pain medications that was offered was not enough. The sample was getting significantly uncomfortable and more short of breath and he was also getting some cough and congestion and he was unable to His respiratory secretions and for that reason he decided to come into the hospital. In the hospital the PA chest x-ray showed no acute abnormalities to indicate rib fractures. There was evidence of pneumonia. The rib views were obtained and the patient was found to have fractures of the posterior lateral seventh and eighth and ninth rib on the left. He has a lidocaine patch applied to that area. He is also taking oxycodone 15 mg every 4 hours. The patient is still having pain and the pain is quite extensive and is estimated to be around 10 out of 10 in severity. Unable to use the incentive spirometer. He is able to speak full sentences. Family is at the bedside. No significant chest wall deformity or bruising on inspection. No hemoptysis. No pleurisy. No angina. No swelling lower extremities. No recurrent episodes of syncope since then. No focal neurological deficit. No seizure activity. On 06/24/2018 patient seen in follow-up on surgical floor. He states he is having significant amount of chest wall pain, exacerbated by any movement and ambulation. Patient is receiving a combination of OxyContin on as-needed basis , and Dilaudid for breakthrough pain, he only received 1 dose of Dilaudid added last night, now his pain seems to be very severe. He is short of breath related to limitation of his respiratory effort and air to pain. He is not able to cough effectively. He is compliant with his incentive spirometry, and is able to achieve 1250 on it today. Lung sounds reveal a scattered rhonchi. His FiO2 is currently at 4 L per nasal cannula, he is afebrile, slightly tachycardic with a rate of 103 BPM. Mildly short of breath, with conversation. His labs were reviewed, shows the CBC of 6.2, hemoglobin of 15.6, potassium is 3.0, chloride is 97, CO2 is 39, BUN is 28, creatinine is 1.1. Patient is receiving nebulized bronchodilators, Singulair, Zosyn, and theophylline. As he will be replaced per protocol, and his oxycodone will be switched to 50 mg every 6 hours in a scheduled basis or better pain control. On 06/25/2018 patient seen in follow-up. This morning patient's oxygenation requirement has increased, patient was more short of breath, also walks was 86% on 4 L, FiO2 was been increased to 6 L, today's chest x-ray has been reviewed, and showed mild persistent patchy density at the right medial lung base, improved aeration in the left lung base, small pleural effusions. Lung sounds are positive for bibasilar crackles, and a dose of IV Lasix was administered IV fluids were cut down to KVO. Patient's chest wall pain is better controlled today, and he is on OxyContin 15 mg every 6 hours [id number], and Dilaudid for breakthrough pain. Compliant with his incentive spirometry, able to achieve 1455-0949 mL on the today. Lung sounds reveal scattered rhonchi, overall better air entry noted bilaterally. He is able to ambulate, no recurrence of syncope during admission. Continue current medical treatment, encourage deep breathing and coughing, and pulmonary toileting. On 06/26/2018 patient seen in follow-up on medical surgical floor on the fourth floor. He states he feels more chest congestion, still has ongoing issues with pain control due to multiple left-sided rib fractures. Currently remains on OxyContin 15 mg every 6 hours, and dilated for breakthrough pain which is given infrequently. Lung sounds are positive for scattered rhonchi, patient is currently on 6 L per high flow nasal cannula, and his pulse ox is 89%. He is afebrile, vital signs are stable, there has been no recurrence of syncope. Today's labs have been reviewed, no CBC has been a BMP shows sodium of 139, potassium is 4.2, chloride is 99, CO2 34, renal profile is within normal limits. Patient denies any fever or chills, no lightheadedness or dizziness. Continue to encourage incentive spirometry use On 06/27/2018 patient seen in follow-up on medical surgical floor. His pain is a bit better controlled today, lung sounds are positive for some scattered rhonchi, overall seems to be less congested compared to yesterday's exam. At times his pulse ox is as low as 86%, improves with deep breathing and coughing, currently on 6 L per high flow nasal cannula. Continues on IV Zosyn, nebulized bronchodilators, obtain repeat chest x-ray today, continue with current medical treatment. Today's lab work has been reviewed, no leukocytosis, electrolytes and renal profile are within normal limits. On 06/28/2018 patient seen in follow-up on medical surgical floor. Yesterday's chest x-ray has been reviewed, and showed small bilateral pleural effusions, some patchy left basilar atelectasis versus a developing infiltrate. On a background of COPD. Chest ultrasound was completed, and showed only 1 cm right pleural effusion pocket and 3.3 cm of left pleural effusion pocket. No sizable pleural effusion pocket to drain. Clinically patient states his pain is a bit better controlled, he is able to cough and occasionally bring up some phlegm. Lung sounds are positive for some scattered rhonchi, overall less congested. He is on 6 L per nasal cannula, his pulse ox is 96%, however when not FiO2 was attempted to be weaned down, patient did have some desaturation issues down to 80, and became short of breath, and anxious, and his oxygen was increased back up to 6 liters, his pulse ox subsequently recovered. His labs today were reviewed, no CBC, BMP showed a sodium of 136, potassium is 4.3, CO2 was 32, renal profile remains normal. Vital signs are stable, patient is afebrile. Encourage ambulation. Sputum cultures pending, patient is on empiric antibiotic form of Zosyn On 07/02/2018 patient seen in follow-up on medical surgical floor. He is sitting up on the edge of the bed, and some left sided chest wall discomfort with deep breathing and coughing and moving around, however he is able to cough , and expectorate sputum. He is compliant with his incentive spirometry, he is able to achieve 500-750 on it today, lung sounds not reveal any wheezing, no crackles, no rhonchi. Oxygen has been weaned down to 4 L per high flow nasal cannula, and patient is satting 95%, will continue weaning FiO2. Patient remains afebrile, hemodynamically stable, no acute events overnight. No delirium, patient's pain is fairly well controlled with OxyContin IR 50 mg every 6 hours, in addition to lidocaine patch, and and naproxen. Sputum culture was positive for gram-positive bacilli, final culture is pending. Patient has been on IV Zosyn. Patient denies any fever or chills. Objective - Vital Signs Vital signs: Vital Signs Temp 98.3 F 07/02/18 06:39 Pulse 92 07/02/18 11:05 Resp 16 07/02/18 06:39 BP 118/72 07/02/18 06:39 Pulse Ox 95 07/02/18 06:39 Intake & Output 07/01/18 07/02/18 07/02/18 18:59 06:59 18:59 Output Total 850 Balance -850 Output: Urine 850 Other: # Voids 3 1 # Bowel Movements 1 0 - Exam Gen. appearance the patient comfortable, in no acute distress. Currently on 4 L high flow nasal cannula. Head exam was generally normal. There was no scleral icterus or corneal arcus. Mucous membranes were moist. Neck was supple and without jugular venous distension, thyromegaly, or carotid bruits. Carotids were easily palpable bilaterally. There was no adenopathy. Lungs sounds are fairly clear, diminished at the bases, no rhonchi, no wheezes, no rales . Breath sounds are diminished in lung bases bilaterally. No skeletal deformities at this point in time. Cardiac exam revealed the PMI to be normally situated and sized. The rhythm was regular and no extrasystoles were noted during several minutes of auscultation. The first and second heart sounds were normal and physiologic splitting of the second heart sound was noted. There were no murmurs, rubs, clicks, or gallops. Abdominal exam revealed normal bowel sounds. The abdomen was soft, non-tender, and without masses, organomegaly, or appreciable enlargement of the abdominal aorta. Examination of the extremities revealed easily palpable radial, femoral and pedal pulses. There was no cyanosis, clubbing or edema. Examination of the skin revealed no evidence of significant rashes, suspicious appearing nevi or other concerning lesions. Neurologically awake and alert and there is no focal neurological deficit. - Labs CBC & Chem 7: 06/30/18 08:17 07/02/18 08:59 Labs: Abnormal Lab Results - Last 24 Hours (Table) 07/02/18 Range/Units 08:59 BUN 22 H (9-20) mg/dL Microbiology - Last 24 Hours (Table) 06/29/18 08:50 Gram Stain - Preliminary Sputum Sputum Culture - Preliminary Gram Positive Bacilli Isolated Assessment and Plan Plan: Assessment: 1 chest wall pain related to 3 level rib fracture on the left involving the seventh eighth and ninth rib. This is related to a traumatic injury/fall which came in the setting of a syncope. Patient's pain is improved, and is currently fairly controlled using a combination of Naprosyn, oxycodone and lidocaine patch. 2 advanced oxygen-dependent COPD with an FEV1 of 33% of predicted 3 chronic hypoxic respiratory failure secondary to above 4 shortness of breath and chest wall pain secondary to follow left-sided rib fractures 5 syncope, exact circumstances is not clear, in fact is not even clear the patient had a syncope versus a fall and for that reason the records will be obtained from [facility] and [place] for further insight on this syncopal episode. 6 prostate cancer 7 obstructive sleep apnea 8 ascending aortic aneurysm measuring 4.2 cm in size on prior CAT scan in the most recent echocardiogram from 2017 showed a dilatation of the aortic root measuring 4.5 x 5.1 cm in size. 9 impaired performance and functional capacity secondary to advanced COPD Plan: Continue encouraging ambulation, and coughing, incentive spirometry use. Patient's pain control is improved, and patient is able to deep breathe and cough. Sputum culture showed gram-negative bacilli, final cultures pending, patient remains on empiric antibiotics in the form of Zosyn. Vitals have Been stable, no altered mentation, no delirium. Patient has been evaluated by PT and OT, and the recommendation was made for placement to subacute rehabilitation center. From pulmonary standpoint patient remains stable, and can be considered for discharge to the rehab today. I performed a history & physical examination of the patient and discussed their management with my nurse practitioner, Jody Johnson. I reviewed the nurse practitioner's note and agree with the documented findings and plan of care. Lung sounds are clear, diminished at the bases. The findings and the impression was discussed with the patient. I attest to the documentation by the nurse practitioner. Time with Patient: Less than 30
--- NOTE | 2018-07-02 13:21 | P.DS ---
Providers Date of admission: 06/22/18 23:38 Expected date of discharge: 07/02/18 Attending physician: Duran Riggins Consults: 06/23/18 13:35 Consult Physician Routine Consulting Provider: Kaylee Altman Consult Reason/Comments: pneumonia Do you want consulting provider notified?: Yes 06/26/18 21:21 Consult Physician Routine Consulting Provider: Jan Driver Consult Reason/Comments: pain managenet Do you want consulting provider notified?: Yes, Notify in am Primary care physician: [facility] Course: Final Diagnoses: -Multiple rib fractures leading to bilateral pneumonia, gram-negative bacilli- final cultures pending -Toxic encephalopathy secondary to opiates. -Bilaterally fractures -COPD with acute exacerbation -Obstructive sleep apnea -Ascending aortic aneurysm -History of prostate cancer -Acute hypoxic respiratory failure secondary to bilateral pneumonia, rib fractures along with COPD -Dilated cardiomyopathy systolic dysfunction ejection fraction of 45-50% mildly hypervolemic continue with the [facility] course: This is a 72-year-old admitted with the multiple rib fractures bilateral pneumonia,COPD, with a history of sleep apnea and uses oxygen at nighttime with CPAP as well. Continues on 3 L of oxygen, maintaining O2 sats in the mid 90s . Maintained on IV Zosyn, sputum cultures reporting gram- negative bacilli, final cultures pending .Significant clinical improvement. Cleared by pulmonary for discharge to subacute rehab. Patient is being discharged to [facility] in a stable condition with guarded prognosis. Microbiology 06/29/18 08:50 Sputum Gram Stain - Preliminary 06/29/18 08:50 Sputum Sputum Culture - Preliminary Gram Positive Bacilli Isolated 06/27/18 09:55 Sputum Gram Stain - Final 06/27/18 09:55 Sputum Sputum Culture - Final Corynebacterium striatum EXAMINATION: GENERAL: The patient is alert and oriented x3, not in any acute distress. CARDIOVASCULAR: S1 and S2 present. No murmurs, rubs, or gallops. PULMONARY: Decreased air entry into bilateral lung calixto. Crackles in bilateral lower lung bases ABDOMEN: Soft, nontender, nondistended, normoactive bowel sounds. No palpable organomegaly. NEUROLOGICAL: Gross neurological examination did not reveal any focal deficits. The impression and plan of care has been dictated as directed. : I performed a history and examination of this patient, discussed the same with the dictator. I agree with the dictator's note ,documented as a scribe. Any additional findings or plans will be noted. Time taken: 35 minutes Patient Condition at Discharge: Stable Plan - Discharge Summary Discharge Rx Participant: No New Discharge Prescriptions: New Docusate [Colace] 100 mg PO BID cap guaiFENesin [Mucinex] 1,200 mg PO Q12HR tablet.er Ipratropium-Albuterol Nebulize [Duoneb 0.5 mg-3 mg/3 ml Soln] 3 ml INHALATION RT-QID ampul.neb Ipratropium-Albuterol Nebulize [Duoneb 0.5 mg-3 mg/3 ml Soln] 3 ml INHALATION Q4H PRN ampul.neb PRN Reason: Shortness Of Breath Or Wheezing Lidocaine 5% Patch [Lidoderm 5% Patch] 1 patch TOPICAL DAILY@0900 patch Lisinopril [Zestril] 2.5 mg PO HS tab Naproxen [Naprosyn] 250 mg PO BID tab Spironolactone [Aldactone] 12.5 mg PO DAILY tab Amoxicillin/Potassium Clav [Augmentin 875-125 Tablet] 1 tab PO Q12HR #10 tab predniSONE 30 mg PO DAILY #3 tab Continue Cholecalciferol [Vitamin D3] 1,000 unit PO DAILY Montelukast Sodium [Singulair] 10 mg PO QAM rOPINIRole HCL [Requip] 1 mg PO HS Aspirin EC [Ecotrin Low Dose] 81 mg PO DIRECTED Budesonide-Formot 160-4.5 Mcg [Symbicort 160-4.5 Mcg Inhaler] 2 puff INHALATION RT-BID Loratadine [Claritin] 10 mg PO DAILY tab Triamcinolone 0.1% Cream [Kenalog 0.1% Cream] 1 applicatio TOPICAL TID Polyethylene Glycol 3350 [Miralax] 17 gm PO DAILY PRN PRN Reason: Constipation Oxymetazoline 0.05% Nasl Ellinger [Afrin 0.05% Nasal Ellinger] 2 spray EA NOSTRIL BID Furosemide [Lasix] 40 mg PO DAILY Famotidine 20 mg PO BID Sodium Chloride [Saline Nasal Ellinger] 1 spray EA NOSTRIL DAILY PRN PRN Reason: Allergy Symptoms Saliva Stimulant Agents Comb.3 [Biotene Moisturizing Mouth] 1 spray MUCOUS MEM DAILY PRN PRN Reason: Dry Mouth Acetaminophen [Tylenol] 500 mg PO Q4-6H PRN PRN Reason: Pain predniSONE 15 mg PO DAILY Theophylline Anhydrous [Theophylline] 200 mg PO HS Changed oxyCODONE HCL [Roxicodone] 15 mg PO Q6H PRN #12 PRN Reason: Pain Discontinued Tiotropium [place] [Spiriva] 1 cap INHALATION DAILY ALPRAZolam [Xanax] 0.25 mg PO TID PRN PRN Reason: Anxiety guaiFENesin [Mucinex] 600 mg PO DAILY PRN PRN Reason: Congestion Levalbuterol Hfa Inhaler [Xopenex Hfa Inhaler] 2 puff INHALATION RT-QID PRN PRN Reason: Shortness Of Breath Or Wheezing Levalbuterol Nebulized [Xopenex Nebulized] 1.25 mg INHALATION RT-QID PRN #120 PRN Reason: Shortness Of Breath Or Wheezing Spironolactone [Aldactone] 25 mg PO DAILY Naproxen 500 mg PO BID Lidocaine 4% Topicaly Film 1 patch TOPICAL DAILY Discharge Medication List Aspirin EC [Ecotrin Low Dose] 81 mg PO DIRECTED 01/19/15 [History] Cholecalciferol [Vitamin D3] 1,000 unit PO DAILY 01/19/15 [History] Montelukast Sodium [Singulair] 10 mg PO QAM 01/19/15 [History] rOPINIRole HCL [Requip] 1 mg PO HS 01/19/15 [History] Budesonide-Formot 160-4.5 Mcg [Symbicort 160-4.5 Mcg Inhaler] 2 puff INHALATION RT-BID 07/19/15 [History] Loratadine [Claritin] 10 mg PO DAILY tab 03/05/17 [Rx] Acetaminophen [Tylenol] 500 mg PO Q4-6H PRN 06/22/18 [History] Famotidine 20 mg PO BID 06/22/18 [History] Furosemide [Lasix] 40 mg PO DAILY 06/22/18 [History] Oxymetazoline 0.05% Nasl Ellinger [Afrin 0.05% Nasal Ellinger] 2 spray EA NOSTRIL BID 06/22/18 [History] Polyethylene Glycol 3350 [Miralax] 17 gm PO DAILY PRN 06/22/18 [History] Saliva Stimulant Agents Comb.3 [Biotene Moisturizing Mouth] 1 spray MUCOUS MEM DAILY PRN 06/22/18 [History] Sodium Chloride [Saline Nasal Ellinger] 1 spray EA NOSTRIL DAILY PRN 06/22/18 [ History] Theophylline Anhydrous [Theophylline] 200 mg PO HS 06/22/18 [History] Triamcinolone 0.1% Cream [Kenalog 0.1% Cream] 1 applicatio TOPICAL TID 06/22/18 [History] predniSONE 15 mg PO DAILY 06/22/18 [History] Amoxicillin/Potassium Clav [Augmentin 875-125 Tablet] 1 tab PO Q12HR #10 tab [Rx] Docusate [Colace] 100 mg PO BID cap 07/02/18 [Rx] Ipratropium-Albuterol Nebulize [Duoneb 0.5 mg-3 mg/3 ml Soln] 3 ml INHALATION Q4H PRN ampul.neb 07/02/18 [Rx] Ipratropium-Albuterol Nebulize [Duoneb 0.5 mg-3 mg/3 ml Soln] 3 ml INHALATION RT -QID ampul.neb 07/02/18 [Rx] Lidocaine 5% Patch [Lidoderm 5% Patch] 1 patch TOPICAL DAILY@0900 patch [Rx] Lisinopril [Zestril] 2.5 mg PO HS tab 07/02/18 [Rx] Naproxen [Naprosyn] 250 mg PO BID tab 07/02/18 [Rx] Spironolactone [Aldactone] 12.5 mg PO DAILY tab 07/02/18 [Rx] guaiFENesin [Mucinex] 1,200 mg PO Q12HR tablet.er 07/02/18 [Rx] oxyCODONE HCL [Roxicodone] 15 mg PO Q6H PRN #12 07/02/18 [Rx] predniSONE 30 mg PO DAILY #3 tab 07/02/18 [Rx] Follow up Appointment(s)/Referral(s): Kaylee Altman MD [STAFF PHYSICIAN] - 1 Week Jose A Sanchez DO [Primary Care Provider] - 3 Days Patient Instructions/Handouts: Rib Fracture (DC), COPD (Chronic Obstructive Pulmonary Disease) (DC) Activity/Diet/Wound Care/Special Instructions: Regular diet, lactose free. Walk frequently as tolerated. Fall precautions. Continue to use incentive spirometer. Oxygen via nasal cannula. 3 L nasal cannula O2 Discharge Disposition: TRANSFER TO SNF/ECF
[2018-07-02 16:30] VITALS: RESP 18
[2018-07-02 16:39] VITALS: PULSE 101
[2018-07-03] MEDS ORDERED: predniSONE 20 MG TAB PO SCH (09:00)
== END 2018-07-02 16:40 | DRG 177 ==
LOC: EC 21:50 → 3SUR 23:38 → 4MS4W 06-26 10:20
PROVIDERS: ADMIT Hospitalist; ATTEND Hospitalist
DX: J15.6 Pneumonia due to other Gram-negative bacteria (principal); J96.21 Acute and chronic respiratory failure with hypoxia; N17.0 Acute kidney failure with tubular necrosis; G92 Toxic encephalopathy; I42.0 Dilated cardiomyopathy; J44.0 Chronic obstructive pulmonary disease with (acute) lower respiratory infection; J44.1 Chronic obstructive pulmonary disease with (acute) exacerbation; J90 Pleural effusion, not elsewhere classified; J98.11 Atelectasis; Z85.46 Personal history of malignant neoplasm of prostate; R41.0 Disorientation, unspecified; F41.9 Anxiety disorder, unspecified; G25.81 Restless legs syndrome; G47.33 Obstructive sleep apnea (adult) (pediatric); G89.11 Acute pain due to trauma; G89.21 Chronic pain due to trauma; I71.2 Thoracic aortic aneurysm, without rupture; T50.1X5A Adverse effect of loop [high-ceiling] diuretics, initial encounter; S22.42XD Multiple fractures of ribs, left side, subsequent encounter for fracture with routine healing; W19.XXXD Unspecified fall, subsequent encounter; T39.395A Adverse effect of other nonsteroidal anti-inflammatory drugs [NSAID], initial encounter; Z87.820 Personal history of traumatic brain injury; V89.2XXS Person injured in unspecified motor-vehicle accident, traffic, sequela; Z79.51 Long term (current) use of inhaled steroids; Z79.52 Long term (current) use of systemic steroids; Z80.0 Family history of malignant neoplasm of digestive organs; Z82.49 Family history of ischemic heart disease and other diseases of the circulatory system; Z82.5 Family history of asthma and other chronic lower respiratory diseases; Z83.3 Family history of diabetes mellitus; Z87.01 Personal history of pneumonia (recurrent); Z87.891 Personal history of nicotine dependence; Z99.81 Dependence on supplemental oxygen; Z98.42 Cataract extraction status, left eye; Z98.41 Cataract extraction status, right eye; Z88.2 Allergy status to sulfonamides; Z88.8 Allergy status to other drugs, medicaments and biological substances; E86.1 Hypovolemia; T40.605A Adverse effect of unspecified narcotics, initial encounter
CPT/HCPCS: 36415; 36600; 70450; 71046; 76604; 76770; 80048; 81001; 82805; 84132; 85025; 87070; 87205; 93005; 93306; 94640; 94760; 99285

== ENCOUNTER → 2018-07-27 | Outpatient (CLI) | payer MEDICARE, BC ==
[2018-07-27 15:18] LABS: Basophils # (A) 0.1 k/uL (0-0.2); Basophils % (A) 1 %; Eosinophils # (A) 0.4 k/uL (0-0.7); Eosinophils % (A) 5 %; HGB 16.4 gm/dL (13.0-17.5); Hypochromasia Slight; Lymphocytes # (A) 1.1 k/uL (1.0-4.8); Lymphocytes % (A) 14 %; MCH 31.3 pg (25.0-35.0); MCHC 31.6 g/dL (31.0-37.0); MCV 98.8 fL (80.0-100.0); Mean Platelet Volume 7.5; Monocytes # (A) 0.5 k/uL (0-1.0); Monocytes % (A) 7 %; Neutrophils # (A) 5.4 k/uL (1.3-7.7); Neutrophils % (A) 71 %; Platelet Count 236 k/uL (150-450); RBC 5.26 m/uL (4.30-5.90); RDW 14.4 % (11.5-15.5); WBC 7.7 k/uL (3.8-10.6)
[2018-07-27 15:48] LABS: ALT 25 U/L (21-72); AST 18 U/L (17-59); Albumin 3.6 g/dL (3.5-5.0); Alkaline Phosphatase 134 U/L (38-126); Amylase 52 U/L (30-110); Anion Gap 9 mmol/L; Blood Urea Nitrogen 20 mg/dL (9-20); Calcium 9.2 mg/dL (8.4-10.2); Carbon Dioxide 32 mmol/L (22-30); Chloride 101 mmol/L (98-107); Glucose 130 mg/dL (74-99); Lipase 77 U/L (23-300); Potassium 3.8 mmol/L (3.5-5.1); Sodium 142 mmol/L (137-145); Total Bilirubin 0.7 mg/dL (0.2-1.3); Total Protein 6.3 g/dL (6.3-8.2)
== END ==
LOC: LABWHC1 14:55
PROVIDERS: ATTEND Internal Medicine Critical Care Medicine
DX: R11.0 Nausea (principal)
CPT/HCPCS: 36415; 80053; 82150; 83690; 85025

== ENCOUNTER 2018-08-06 16:46 | Inpatient (IN) | payer MEDICARE, BC ==
[2018-08-06] MEDS ORDERED: SODIUM CHLORIDE 0.9% 500 ML 500 ML IV STA (17:08)
[2018-08-06] MEDS ORDERED: ALBUTEROL NEBULIZED 2.5 MG/3 ML INHALATION STA (17:08)
[2018-08-06] MEDS ORDERED: IPRATROPIUM 0.5 MG/2.5 ML NEBU INHALATION STA (17:08)
[2018-08-06] MEDS ORDERED: methylPREDNISolone SOD SUCCI 125 MG/2 ML VIAL IV STA (17:08)
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
[2018-08-06 17:52] LABS: Basophils % (A) 0 %; Eosinophils # (A) 0.1 k/uL (0-0.7); Eosinophils % (A) 1 %; HCT 51.1 % (39.0-53.0); HGB 16.3 gm/dL (13.0-17.5); Hypochromasia Slight; Lymphocytes # (A) 0.6 k/uL (1.0-4.8); Lymphocytes % (A) 9 %; MCH 31.6 pg (25.0-35.0); MCV 98.9 fL (80.0-100.0); Macrocytosis Slight; Mean Platelet Volume 7.3; Monocytes # (A) 0.5 k/uL (0-1.0); Monocytes % (A) 7 %; Neutrophils # (A) 5.6 k/uL (1.3-7.7); Neutrophils % (A) 82 %; Platelet Count 283 k/uL (150-450); RBC 5.16 m/uL (4.30-5.90); RDW 15.5 % (11.5-15.5); WBC 6.9 k/uL (3.8-10.6)
[2018-08-06 17:54] LABS: ALT 29 U/L (21-72); AST 24 U/L (17-59); Albumin 3.6 g/dL (3.5-5.0); Alkaline Phosphatase 112 U/L (38-126); Anion Gap 7 mmol/L; Blood Urea Nitrogen 18 mg/dL (9-20); Carbon Dioxide 34 mmol/L (22-30); Chloride 96 mmol/L (98-107); Glucose 122 mg/dL (74-99); Magnesium 1.8 mg/dL (1.6-2.3); Potassium 3.8 mmol/L (3.5-5.1); Sodium 137 mmol/L (137-145); Total Protein 5.8 g/dL (6.3-8.2)
[2018-08-06 17:56] LABS: INR 1.2 (<1.2); Partial Thromboplastin Time 22.2 sec (22.0-30.0); Prothrombin Time 11.3 sec (9.0-12.0)
[2018-08-06 18:10] LABS: Creatine Kinase MB 1.2 ng/mL (0.0-2.4)
[2018-08-06 18:17] LABS: Troponin I 0.114 ng/mL (0.000-0.034)
--- NOTE | 2018-08-06 18:28 | XR ---
EXAMINATION TYPE: XR chest 2V DATE OF EXAM: 08/06/2018 COMPARISON: 07/27/2018 HISTORY: Short of breath and wheezing TECHNIQUE: Frontal and lateral views of the chest are obtained. FINDINGS: There is mild blunting of the posterior costophrenic angles on the lateral view. There is pulmonary hyperinflation and flattening of the diaphragm. There is no heart failure. There is linear density at the left lung base. Thoracic aorta is atheromatous. There are left-sided rib fractures unchanged. IMPRESSION: COPD. Pleural and pulmonary scarring at the lung bases. No significant change.
[2018-08-06] MEDS ORDERED: ASPIRIN 325 MG TAB PO STA (19:00)
[2018-08-06] MEDS ORDERED: HEPARIN SODIUM,PORCINE 5,000 UNIT/ML 1 ML VIAL IV ONE (19:01)
[2018-08-06] MEDS ORDERED: NITROGLYCERIN-D5W PMX 50 MG in DEXTROSE/WATER 1 250ML.BAG IV ONE (19:01)
[2018-08-06] MEDS ORDERED: HEPARIN SODIUM,PORCINE 5,000 UNIT/ML 1 ML VIAL IV PRN (19:01)
[2018-08-06] MEDS ORDERED: FUROSEMIDE 10 MG/ML 2 ML VIAL IV STA (19:04)
[2018-08-06] MEDS ORDERED: FAMOTIDINE 20 MG/2 ML VIAL IV STA (19:15)
[2018-08-06] MEDS ORDERED: diphenhydrAMINE 50 MG/ML 1 ML VIAL IVP STA (19:15)
[2018-08-06] MEDS: HEPARIN SOD,PORK IN 0.45% NACL 25,000 UNIT in 0.45% NACL 1 500ML.BAG IV SCH (20:22)
--- NOTE | 2018-08-06 20:46 | CT ---
EXAMINATION TYPE: CT angio chest DATE OF EXAM: 08/06/2018 8:02 PM COMPARISON: 01/19/2015 HISTORY: Dyspnea. CT DLP: 312.5 mGycm Automated exposure control for dose reduction was used. CONTRAST: CTA scan of the thorax is performed with IV Contrast, patient injected with 71ml mL of Isovue 370, pu lmonary embolism protocol. There are 3-D post processed images.. FINDINGS: There is coarse interstitial infiltrates in both lungs. There is mild pleural thickening at the lung bases. There is mild atelectasis at the posterior lung bases. There is no pericardial effusion. There is fluid in the distal esophagus. There is no mediastinal adenopathy. Thoracic aorta is atheromatous . A cine aorta measures 4.2 cm. There is no dissection. There is normal contrast opacification of the pulmonary arteries. I see no filling defects. There is emphysema in the upper lung calixto. There is compression deformity of T11 and T7 vertebral bodies up to 50%. IMPRESSION: EMPHYSEMA. PULMONARY FIBROSIS AND ATELECTASIS. MILD PLEURAL THICKENING AT THE LUNG BASES. THERE IS NO EVIDENCE OF PULMONARY EMBOLISM. MILD ANEURYSM ASCENDING AORTA. COMPRESSION FRACTURES IN THE THORACIC SPINE ARE NEW COMPARED TO OLD EXAM. ANEURYSM UNCHANGED. THERE IS PROGRESSION OF THE LUNG DISEASE COM PARED TO OLD EXAM. ACUTE PNEUMONIA CANNOT BE ENTIRELY EXCLUDED.
[2018-08-06] MEDS ORDERED: IPRATROPIUM-ALBUTEROL 3 ML NEB INHALATION STA (20:48)
[2018-08-06] MEDS ORDERED: NALOXONE 0.4 MG/ML 1 ML VIAL IV PRN (20:50)
[2018-08-06] MEDS ORDERED: HYDROmorphone 1 MG/ML 1 ML SYRINGE IVP PRN (20:50)
[2018-08-06] MEDS ORDERED: ALBUTEROL NEBULIZED 2.5 MG/3 ML INHALATION PRN ×2 (20:54→21:55)
[2018-08-06] MEDS: ACETAMINOPHEN TAB 325 MG TAB PO PRN (22:22)
[2018-08-06] MEDS ORDERED: ALPRAZolam 0.25 MG TAB PO PRN (22:27)
[2018-08-06] MEDS: methylPREDNISolone SOD SUCCI 125 MG/2 ML VIAL IV SCH (22:53)
[2018-08-07] MEDS ORDERED: ALBUTEROL NEBULIZED 2.5 MG/3 ML INHALATION SCH
[2018-08-07 02:33] LABS: Creatine Kinase MB 1.6 ng/mL (0.0-2.4)
[2018-08-07 02:36] LABS: Troponin I 0.09 ng/mL (0.000-0.034)
[2018-08-07 06:11] LABS: Glucose,Whole Blood 134 mg/dL (75-99)
[2018-08-07] MEDS: INSULIN ASPART 100 UNIT/ML 1 ML 10 ML VIAL SQ SCH ×3 (06:16→17:32)
[2018-08-07 06:47] LABS: Anisocytosis Slight; Basophils % (A) 0 %; Eosinophils % (A) 0 %; HCT 50.7 % (39.0-53.0); HGB 15.5 gm/dL (13.0-17.5); Hypochromasia Moderate; Lymphocytes # (A) 0.3 k/uL (1.0-4.8); Lymphocytes % (A) 7 %; MCH 30.9 pg (25.0-35.0); MCHC 30.5 g/dL (31.0-37.0); MCV 101.2 fL (80.0-100.0); Macrocytosis Slight; Mean Platelet Volume 7.7; Monocytes # (A) 0.1 k/uL (0-1.0); Monocytes % (A) 2 %; Neutrophils # (A) 3.3 k/uL (1.3-7.7); Neutrophils % (A) 90 %; Platelet Count 268 k/uL (150-450); RBC 5.01 m/uL (4.30-5.90); WBC 3.6 k/uL (3.8-10.6)
[2018-08-07 06:49] LABS: ALT 30 U/L (21-72); AST 17 U/L (17-59); Albumin 3.1 g/dL (3.5-5.0); Alkaline Phosphatase 101 U/L (38-126); Anion Gap 7 mmol/L; Blood Urea Nitrogen 16 mg/dL (9-20); Calcium 8.5 mg/dL (8.4-10.2); Carbon Dioxide 31 mmol/L (22-30); Chloride 99 mmol/L (98-107); Glucose 153 mg/dL (74-99); Potassium 4.1 mmol/L (3.5-5.1); Sodium 137 mmol/L (137-145); Total Bilirubin 0.5 mg/dL (0.2-1.3); Total Protein 5.5 g/dL (6.3-8.2)
[2018-08-07 07:09] LABS: Creatine Kinase MB 1.4 ng/mL (0.0-2.4)
[2018-08-07 07:10] LABS: Troponin I 0.076 ng/mL (0.000-0.034)
[2018-08-07] MEDS: ALBUTEROL NEBULIZED 2.5 MG/3 ML INHALATION SCH ×4 (08:09→20:32)
[2018-08-07] MEDS: methylPREDNISolone SOD SUCCI 125 MG/2 ML VIAL IV SCH ×3 (08:21→23:10)
[2018-08-07] MEDS: THEOPHYLLINE 24 HOUR 400 MG CAP.ER.24H PO SCH (08:25)
[2018-08-07] MEDS: FUROSEMIDE 40 MG TAB PO SCH (08:25)
[2018-08-07] MEDS: MONTELUKAST 10 MG TAB PO SCH (08:25)
[2018-08-07] MEDS: FAMOTIDINE 20 MG TAB PO SCH (08:25)
[2018-08-07] MEDS ORDERED: LORATADINE 10 MG TAB PO SCH (09:00)
--- NOTE | 2018-08-07 09:40 | ECHOF ---
Referral Reason:NSTEMI MEASUREMENTS -------- HEIGHT: 170.2 cm WEIGHT: 69.4 kg BP: 126/85 RVIDd: 3.2 cm (< 3.3) IVSd: 1.2 cm (0.6 - 1.1) LVIDd: 4.7 cm (3.9 - 5.3) LVPWd: 1.3 cm (0.6 - 1.1) IVSs: 1.5 cm LVIDs: 3.1 cm LVPWs: 1.3 cm LA Diam: 3.2 cm (2.7 - 3.8) Ao Diam: 4.8 cm (2.0 - 3.7) AV Cusp: 1.7 cm (1.5 - 2.6) LA Diam: 3.0 cm (2.7 - 3.8) MV E Stephen: 0.38 m/s MV DecT: 226 ms MV A Stephen: 0.79 m/s MV E/A Ratio: 0.48 RAP: 5.00 mmHg RVSP: 17.01 mmHg FINDINGS -------- Sinus rhythm. This was a techncally difficult study with suboptimal views, , Lumason utilized for enhancement of im ages. The left ventricular size is normal. There is mild concentric left ventricular hypertrophy. Overa ll left ventricular systolic function is mildly impaired with, an EF between 45 - 50 %. The right ventricle is normal in size. The left atrial size is normal. The right atrial size is normal. 5.0mg OF Lumason UTLIZED: 2 OR MORE WALL SEGMENTS NOT VISUALIZED. Mild mitral annular calcification present. Mild mitral regurgitation is present. Mild tricuspid regurgitation present. There is no evidence of pulmonary hypertension. The right v entricular systolic pressure, as measured by Doppler, is 17.01mmHg. The pulmonic valve was not well visualized. Ascending Aortic root is moderately dilated and measures 4.9cm: not well visulized could be higher. There is no pericardial effusion. CONCLUSIONS -------- 1. This was a techncally difficult study with suboptimal views, , Lumason utilized for enhancement of images. 2. The left ventricular size is normal. 3. There is mild concentric left ventricular hypertrophy. 4. Overall left ventricular systolic function is mildly impaired with, an EF between 45 - 50 %. 5. The right ventricle is normal in size. 6. The left atrial size is normal. 7. The right atrial size is normal. 8. 5.0mg OF Lumason UTLIZED: 2 OR MORE WALL SEGMENTS NOT VISUALIZED. 9. Mild mitral annular calcification present. 10. Mild mitral regurgitation is present. 11. Mild tricuspid regurgitation present. 12. There is no evidence of pulmonary hypertension. 13. The right ventricular systolic pressure, as measured by Doppler, is 17.01mmHg. 14. The pulmonic valve was not well visualized. 15. Ascending Aortic root is moderately dilated and measures 4.9cm: not well visulized could be highe r. 16. There is no pericardial effusion. [employer] ENGINEER: Mikki Mesa RDCS
--- NOTE | 2018-08-07 09:58 | P.PN ---
Subjective Progress Note Date: 08/07/18 Principal diagnosis: Shortness of breath/chest discomfort This is a 72-year-old gentleman with a past medical history significant for chronic obstructive pulmonary disease which seems to be advanced and the patient is oxygen dependent maintaining 4 L at home presented to the hospital complaining of shortness of breath. The patient stated that for the last 2 weeks he has been experiencing progressive exertional dyspnea. On further questioning he stated that he also has been experiencing chest discomfort with exertion. He denies having any dizziness or lightheadedness. Because of that he decided to come to the emergency room for further evaluation. The patient was admitted to the hospital in June 2018 with multiple rib fracture. At that time the patient was at [place] walking with friends and the last thing he remember being on the floor surrounded with people. It did seem that the patient did have any syncopal episode. Since then he has been experiencing chest discomfort with exertion which he always related to the rib fractures. When he was admitted in June 2018 he underwent an echocardiogram and that revealed impaired LV function with EF between 40-45% with anteroseptal hypokinesia. We get involved in the patient's care this time because the troponin was checked and came in to be slightly abnormal. More importantly, the EKG is quite concerning for severe underlying coronary artery disease. The patient does have Q waves in the anteroseptal leads and ST segment changes anteriorly concerning for ischemia. He stated that he underwent a heart catheterization but he does not recall when. There is no documentation of heart catheterization from his previous medical records. Hemodynamically, he has been maintaining normal sinus mechanism with a resting heart rate in the 90s and normal blood pressure. I am going to add metoprolol to the current medical regimen. He is on aspirin we'll continue that. I will obtain the previous medical records from the office including any report or documentation of heart catheterization. I am concerned about severe underlying coronary artery disease and if the patient did not undergo heart catheterization in the past I do feel that he needs to be done. Objective - Vital Signs Vital signs: Vital Signs Temp 97.7 F 08/07/18 08:00 Pulse 104 H 08/07/18 08:25 Resp 18 08/07/18 08:00 BP 109/71 08/07/18 08:00 Pulse Ox 93 L 08/07/18 08:00 Intake & Output 08/06/18 08/07/1808/07/18 18:59 06:59 18:59 Intake Total 109.616 Output Total 400 Balance -290.384 Weight 68.039 kg 69.4 kg Intake: Intake, IV Titration 109.616 Amount Heparin Sod,Pork in 0.45% 109.616 NaCl 25,000 unit In 0.45 % NaCl 1 500ml.bag @ 12 UNITS/KG/HR 16.32 mls/hr IV .Q24H [facility] Rx#: [id number] Output: Urine 400 Other: Voiding Method Urinal - Constitutional General appearance: Present: no acute distress - Respiratory Respiratory: bilateral: diminished - Cardiovascular Rhythm: regular Heart sounds: normal: S1, S2 - Labs CBC & Chem 7: 08/07/18 05:33 08/07/18 05:33 Labs: Abnormal Lab Results - Last 24 Hours (Table) 08/06/18 08/06/18 08/06/18 Range/Units 17:30 17:30 17:30 WBC (3.8-10.6) k/uL MCV (80.0-100.0) fL MCHC (31.0-37.0) g/dL RDW (11.5-15.5) % Lymphocytes # 0.6 L (1.0-4.8) k/uL INR (<1.2) APTT (22.0-30.0) sec Chloride 96 L (98-107) mmol/L Carbon Dioxide 34 H (22-30) mmol/L Glucose 122 H (74-99) mg/dL POC Glucose (mg/dL) (75-99) mg/dL Total Creatine Kinase (55-170) U/L Troponin I 0.114 H* (0.000-0.034) ng/mL Total Protein 5.8 L (6.3-8.2) g/dL Albumin (3.5-5.0) g/dL 08/06/18 08/07/18 08/07/18 Range/Units 17:30 01:30 05:33 WBC 3.6 L (3.8-10.6) k/uL MCV 101.2 H (80.0-100.0) fL MCHC 30.5 L (31.0-37.0) g/dL RDW 16.0 H (11.5-15.5) % Lymphocytes # 0.3 L (1.0-4.8) k/uL INR 1.2 H (<1.2) APTT (22.0-30.0) sec Chloride (98-107) mmol/L Carbon Dioxide (22-30) mmol/L Glucose (74-99) mg/dL POC Glucose (mg/dL) (75-99) mg/dL Total Creatine Kinase (55-170) U/L Troponin I 0.090 H* (0.000-0.034) ng/mL Total Protein (6.3-8.2) g/dL Albumin (3.5-5.0) g/dL 08/07/18 08/07/18 08/07/18 Range/Units 05:33 05:33 05:33 WBC (3.8-10.6) k/uL MCV (80.0-100.0) fL MCHC (31.0-37.0) g/dL RDW (11.5-15.5) % Lymphocytes # (1.0-4.8) k/uL INR (<1.2) APTT 30.9 H (22.0-30.0) sec Chloride (98-107) mmol/L Carbon Dioxide 31 H (22-30) mmol/L Glucose 153 H (74-99) mg/dL POC Glucose (mg/dL) (75-99) mg/dL Total Creatine Kinase 54 L (55-170) U/L Troponin I 0.076 H* (0.000-0.034) ng/mL Total Protein 5.5 L (6.3-8.2) g/dL Albumin 3.1 L (3.5-5.0) g/dL 08/07/18 Range/Units 06:09 WBC (3.8-10.6) k/uL MCV (80.0-100.0) fL MCHC (31.0-37.0) g/dL RDW (11.5-15.5) % Lymphocytes # (1.0-4.8) k/uL INR (<1.2) APTT (22.0-30.0) sec Chloride (98-107) mmol/L Carbon Dioxide (22-30) mmol/L Glucose (74-99) mg/dL POC Glucose (mg/dL) 134 H (75-99) mg/dL Total Creatine Kinase (55-170) U/L Troponin I (0.000-0.034) ng/mL Total Protein (6.3-8.2) g/dL Albumin (3.5-5.0) g/dL Assessment and Plan Assessment: Assessment #1 exertional chest discomfort and shortness of breath #2 possible COPD exacerbation #3 known advanced chronic hypoxic respiratory failure related to COPD #4 cardiomyopathy unknown if it is ischemic or nonischemic #5 possible severe underlying coronary artery disease #6 multiple comorbidities. Plan #1 continue aspirin #2 continue heparin for additional 24 hours #3 add metoprolol to the current medical regimen #4 obtain the previous medical records #5 coronary angiogram if the patient did not have any in the past #6 follow-up with the patient. Thank you for allowing us participate in his care
[2018-08-07 11:30] LABS: Glucose,Whole Blood 136 mg/dL (75-99)
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
[2018-08-07] MEDS ORDERED: NITROGLYCERIN SL TABS 0.4 MG TAB SUBLINGUAL PRN (13:26)
[2018-08-07] MEDS ORDERED: ALPRAZolam 0.5 MG TAB PO PRN (13:26)
[2018-08-07] MEDS: ACETAMINOPHEN TAB 325 MG TAB PO PRN (14:39)
[2018-08-07 15:09] VITALS: BMI 23.9
[2018-08-07 16:54] LABS: ABG Base Excess 12.3 mmol/L; ABG HCO3 34 mmol/L (21-25); ABG Oxygen Saturation 90.6 % (94-97); ABG PCO2 38 mmHg (35-45); ABG TCO2 36 mmol/L (19-24)
[2018-08-07 17:01] LABS: ABG PH 7.57 (7.35-7.45); ABG PO2 53 mmHg (83-108)
[2018-08-07 17:13] LABS: Glucose,Whole Blood 161 mg/dL (75-99)
[2018-08-07 20:48] LABS: Glucose,Whole Blood 128 mg/dL (75-99)
[2018-08-07] MEDS: METOPROLOL TARTRATE 25 MG TAB PO SCH (20:51)
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
[2018-08-07] MEDS: HEPARIN SOD,PORK IN 0.45% NACL 25,000 UNIT in 0.45% NACL 1 500ML.BAG IV SCH (22:23)
[2018-08-08] MEDS: ACETAMINOPHEN TAB 325 MG TAB PO PRN (05:20)
[2018-08-08] MEDS ORDERED: ATORVASTATIN 80 MG TAB PO ONE (06:00)
[2018-08-08] MEDS ORDERED: SODIUM CHLORIDE 0.9% 1,000 ML in EMPTY BAG 1 BAG IV ONE (06:00)
[2018-08-08] MEDS ORDERED: ASPIRIN 325 MG TAB PO ONE (06:00)
[2018-08-08] MEDS: METOPROLOL TARTRATE 25 MG TAB PO SCH ×2 (06:50→20:42)
[2018-08-08] MEDS: THEOPHYLLINE 24 HOUR 400 MG CAP.ER.24H PO SCH (06:51)
[2018-08-08] MEDS: FUROSEMIDE 40 MG TAB PO SCH (06:51)
[2018-08-08] MEDS: MONTELUKAST 10 MG TAB PO SCH (06:51)
[2018-08-08] MEDS: methylPREDNISolone SOD SUCCI 125 MG/2 ML VIAL IV SCH ×3 (06:51→23:47)
[2018-08-08] MEDS: FAMOTIDINE 20 MG TAB PO SCH (06:51)
[2018-08-08 06:52] LABS: Glucose,Whole Blood 145 mg/dL (75-99)
[2018-08-08] MEDS: INSULIN ASPART 100 UNIT/ML 1 ML 10 ML VIAL SQ SCH ×3 (06:56→17:30)
[2018-08-08 06:59] LABS: Basophils % (A) 0 %; Eosinophils % (A) 0 %; HCT 41.9 % (39.0-53.0); HGB 13.3 gm/dL (13.0-17.5); Hypochromasia Slight; Lymphocytes # (A) 0.2 k/uL (1.0-4.8); Lymphocytes % (A) 2 %; MCH 31.1 pg (25.0-35.0); MCHC 31.8 g/dL (31.0-37.0); MCV 97.8 fL (80.0-100.0); Macrocytosis Slight; Mean Platelet Volume 7.3; Monocytes # (A) 0.3 k/uL (0-1.0); Monocytes % (A) 3 %; Neutrophils # (A) 10.8 k/uL (1.3-7.7); Neutrophils % (A) 95 %; Platelet Count 244 k/uL (150-450); RBC 4.28 m/uL (4.30-5.90); RDW 15.9 % (11.5-15.5); WBC 11.4 k/uL (3.8-10.6)
[2018-08-08] MEDS: ALBUTEROL NEBULIZED 2.5 MG/3 ML INHALATION SCH ×4 (07:25→21:23)
[2018-08-08] MEDS ORDERED: diphenhydrAMINE 50 MG/ML 1 ML VIAL ONE (08:03)
[2018-08-08] MEDS ORDERED: LIDOCAINE 1% INJ 10MG/ML (20 ML MDV) ONE (08:03)
[2018-08-08] MEDS ORDERED: IV FLUID CONTINUATION 1,000 ML IV ONE (08:14)
[2018-08-08] MEDS ORDERED: MIDAZOLAM 2 MG/2 ML VIAL ONE (08:19)
[2018-08-08] MEDS ORDERED: fentaNYL (PF) 50 MCG/ML 2 ML AMP ONE (08:19)
[2018-08-08] MEDS ORDERED: diphenhydrAMINE 50 MG/ML 1 ML VIAL IVP ONE (08:22)
[2018-08-08] MEDS ORDERED: fentaNYL (PF) 50 MCG/ML 2 ML AMP IV ONE (08:22)
[2018-08-08] MEDS ORDERED: LIDOCAINE 1% INJ 10MG/ML (20 ML MDV) SQ ONE (08:23)
[2018-08-08] MEDS ORDERED: MIDAZOLAM 2 MG/2 ML VIAL IV ONE (08:23)
[2018-08-08] MEDS ORDERED: IOPAMIDOL-370 125ML BTL INJ ONE (08:39)
[2018-08-08] MEDS ORDERED: RX INFO: IV CONTRAST WAS GIVEN 1 EACH MISC MISCELLANE PRN (08:52)
--- NOTE | 2018-08-08 09:00 | P.PCN ---
Date of Procedure: 08/08/18 Preoperative Diagnosis: Unstable angina Postoperative Diagnosis: Stable coronary artery disease Procedure(s) Performed: Left heart catheterization with left ventriculography Description of Procedure: HISTORY: This is a 72-year-old gentleman with history of severe COPD and mild coronary artery disease was admitted to the hospital with chest pain and shortness of breath. Troponins are borderline elevated. An EKG showed diffuse ST-T changes in anterolateral leads. Patient was advised to have a cardiac catheterization by Dr. Guerrero CONSENT:I have discussed the risks, benefits and alternative therapies for the above-mentioned procedure and for both sedation/analgesia as well as necessary blood product administration, if indicated, as they pertain to this patient. The patient has indicated understanding and acceptance of the risks and procedures discussed. PROCEDURE: Patient was brought to the lab in a fasting state. Patient was given some IV sedation. The right groin is infiltrated with lidocaine and right femoral artery was entered using Seldinger technique. A 6-Kinyarwanda catheter was left in place and selective coronary arteriography and left ventriculography was performed. Patient tolerated the procedure well. Femoral angiogram was performed and Angio-Seal was applied for hemostasis. No immediate complications were noted and patient was transferred to [facility] in a stable condition Conscious Sedation: Versed 0.5 mg Fentanyl 25 g Duration 19minutes HEMODYNAMICS: The aortic pressure is about 110/70. Left ventricle end- diastolic pressure is about 10-12. There was no gradient across the aortic valve SELECTIVE CORONARY ARTERIOGRAPHY: LEFT MAIN: Normal length and free of occlusive disease. There is mild calcification THE LEFT ANTERIOR DESCENDING CORONARY ARTERY:. There is mild calcification of the proximal LAD. There is mild disease involving the ostium of the diagonal but seems to be better than before compared to the 2016 study. This is a good caliber vessel giving rise good-sized diagonal branch THE LEFT CIRCUMFLEX AND IS CORONARY ARTERY:. This is a nondominant vessel giving rise to small OM branch. Free of any occlusive disease THE RIGHT CORONARY ARTERY: And dominant vessel giving rise to good-sized PDA and PLV. Free of any significant occlusive disease LEFT VENTRICULOGRAPHY:. This revealed normal-sized cardiac silhouette with good systolic function FINAL IMPRESSION:. Stable coronary artery disease with mild calcification of the LAD and the diagonal with mild ostial stenosis of the diagonal. Rest of the coronary system is free of occlusive disease PLAN:. Ask medical therapy and risk factor modification PROGNOSIS: Good
[2018-08-08 11:23] LABS: Glucose,Whole Blood 122 mg/dL (75-99)
[2018-08-08] MEDS: SODIUM CHLORIDE 0.9% 1,000 ML IV SCH ×2 (11:48→20:43)
[2018-08-08] MEDS ORDERED: HYDROmorphone 2 MG TAB PO PRN (13:41)
--- NOTE | 2018-08-08 14:29 | P.PN ---
Subjective Progress Note Date: 08/08/18 Principal diagnosis: Chest pain, COPD exacerbation A pleasant 70-year-old male patient is well-known to me. The patient has chronic advanced COPD oxygen dependent at 4 L about 2 by nasal cannula. The patient was in the hospital last month after he had a fall possibly related to her syncope and he had left-sided rib cage/rib fracture. He was Hospital as for worsening shortness of breath and pain control. During his hospital stay the patient required aggressive pulmonary toileting, management of his COPD exacerbation and he was also given narcotic medication to control his pain which at times was causing significant diminishment in his level of consciousness and optimization. Upon discharge him a he was given oxycodone 15 mg by mouth to be taken as needed basis. He is a was under good control. Since he got released from the hospital, the patient was seen once in the office and he was doing well and he was stable and he came back to the emergency department complaining of pain across the anterior part of the chest radiating to the back and some progressive dyspnea. He came into the emergency department for further evaluation. The patient was seen by cardiology. Echo of the heart was done and it showed impaired LV function with an ejection fraction of 40-45% and there was evidence of anteroseptal hypokinesia. EKG showed Q waves in the anteroseptal leads and ST segment changes in the anterior leads considering ischemia. He is less cardiac Ablation was in 2016 and the patient had nonocclusive disease back then. No pleurisy. No hemoptysis. Chest x-ray and a CAT scan of the chest was reviewed and is consistent with COPD. No evidence of any pulmonary embolism and that is no evidence of pneumonia. There is emphysema and pulmonary fibrosis and atelectatic changes in lung bases bilaterally. There is also mild pleural thickening at the lung bases. No evidence of any pulmonary embolism. Mild aneurysmal dilatation of the ascending aorta and compression fracture of the thoracic spine were impaired to his last evaluation. There was compression deformity of T11 and T7 vertebral bodies up to 50%. There is also an ascending aortic aneurysm measuring 4.2 cm in size. No evidence of any new sign lymphadenopathy. No leukocytosis. Rest of the blood work is all within normal limits. Troponin was elevated considering an acute non-ST segment elevation myocardial infarction. The patient is seen again today 08/08/2018 in follow-up on the selective care unit. He is currently resting quite comfortably in bed. He is awake and alert in no acute distress. He did undergo cardiac catheterization today which revealed mild opacification of the LAD and the diagonal with mild ostial stenosis of the diagonal. The rest of the coronary system was free of occlusive disease. He currently denies any chest pain. He's been maintaining O2 saturations in the low 90s on 4 L/m per nasal cannula. He has been afebrile. Hemodynamically stable. Objective - Vital Signs Vital signs: Vital Signs Temp 98.1 F 08/08/18 09:22 Pulse 84 08/08/18 11:01 Resp 18 08/08/18 11:37 BP 111/71 08/08/18 11:37 Pulse Ox 91 L 08/08/18 11:37 Intake & Output 08/07/18 08/08/18 08/08/18 18:59 06:59 18:59 Intake Total 240 420.249 170 Output Total 300 Balance 240 420.249 -130 Weight 69.4 kg 67.9 kg Intake: IV 20 50 Invasive Line 1 20 Intake, IV Titration 400.249 Amount Heparin Sod,Pork in 0.45% 400.249 NaCl 25,000 unit In 0.45 % NaCl 1 500ml.bag @ 12 UNITS/KG/HR 16.32 mls/hr IV .Q24H [facility] Rx#: [id number] Oral 240 120 Output: Urine 300 Other: Voiding Method Toilet Urinal # Voids 2 1 - Exam Gen. appearance, comfortable likely distress. Not using excessive muscle breathing. Head exam was generally normal. There was no scleral icterus or corneal arcus. Mucous membranes were moist. Neck was supple and without jugular venous distension, thyromegaly, or carotid bruits. Carotids were easily palpable bilaterally. There was no adenopathy. Lungs sounds are diminished. The patient has a barrel chest and some thoracic kyphosis. Diminished breath sounds throughout the lung his bilaterally along with scattered expiratory wheezes upon forceful expiratory maneuvers. Cardiac exam revealed the PMI to be normally situated and sized. The rhythm was regular and no extrasystoles were noted during several minutes of auscultation. The first and second heart sounds were normal and physiologic splitting of the second heart sound was noted. There were no murmurs, rubs, clicks, or gallops. Abdominal exam revealed normal bowel sounds. The abdomen was soft, non-tender, and without masses, organomegaly, or appreciable enlargement of the abdominal aorta. Examination of the extremities revealed easily palpable radial, femoral and pedal pulses. There was no cyanosis, clubbing or edema. Examination of the skin revealed no evidence of significant rashes, suspicious appearing nevi or other concerning lesions. Neurologically awake and alert and is no focal neurological deficits. - Labs CBC & Chem 7: 08/08/18 06:11 08/07/18 05:33 Labs: Abnormal Lab Results - Last 24 Hours (Table) 08/07/18 08/07/18 08/07/18 Range/Units 16:50 17:03 20:42 WBC (3.8-10.6) k/uL RBC (4.30-5.90) m/uL RDW (11.5-15.5) % Neutrophils # (1.3-7.7) k/uL Lymphocytes # (1.0-4.8) k/uL APTT (22.0-30.0) sec ABG pH 7.57 H* (7.35-7.45) ABG pO2 53 L* (83-108) mmHg ABG HCO3 34 H (21-25) mmol/L ABG Total CO2 36 H (19-24) mmol/L ABG O2 Saturation 90.6 L (94-97) % POC Glucose (mg/dL) 161 H 128 H (75-99) mg/dL 08/08/18 08/08/18 08/08/18 Range/Units 06:10 06:11 06:11 WBC 11.4 H (3.8-10.6) k/uL RBC 4.28 L (4.30-5.90) m/uL RDW 15.9 H (11.5-15.5) % Neutrophils # 10.8 H (1.3-7.7) k/uL Lymphocytes # 0.2 L (1.0-4.8) k/uL APTT 37.7 H (22.0-30.0) sec ABG pH (7.35-7.45) ABG pO2 (83-108) mmHg ABG HCO3 (21-25) mmol/L ABG Total CO2 (19-24) mmol/L ABG O2 Saturation (94-97) % POC Glucose (mg/dL) 145 H (75-99) mg/dL 08/08/18 Range/Units 11:21 WBC (3.8-10.6) k/uL RBC (4.30-5.90) m/uL RDW (11.5-15.5) % Neutrophils # (1.3-7.7) k/uL Lymphocytes # (1.0-4.8) k/uL APTT (22.0-30.0) sec ABG pH (7.35-7.45) ABG pO2 (83-108) mmHg ABG HCO3 (21-25) mmol/L ABG Total CO2 (19-24) mmol/L ABG O2 Saturation (94-97) % POC Glucose (mg/dL) 122 H (75-99) mg/dL Microbiology - Last 24 Hours (Table) 08/06/18 17:30 Blood Culture - Preliminary Blood No Growth after 24 hours Assessment and Plan Assessment: Assessment 1 acute chest pain with abnormal echocardiogram showing impaired EF of around 40 -45% and segmental wall motion abnormalities involving the anteroseptal wall and positive troponin leak. The patient has nonocclusive coronary artery disease based on a previous cardiac catheterization. Repeat cardiac catheterization today revealed nonocclusive coronary artery disease. 2 chest pain secondary to above 3 advanced COPD, and the patient has an FEV1 of 33% of predicted 4 chronic hypoxic respiratory failure and the patient is demented on oxygen 4 L per minute nasal cannula 5 multiple left-sided rib fractures following a fall 6 obstructive sleep apnea 7 ascending aortic aneurysm measuring 4.2 cm in size 8 prostate cancer 9 compressive fraction of the T7 and T11 spine with 50% loss in height Plan The patient was seen and evaluated by Dr. Altman. Cardiac catheterization reviewed. No significant coronary artery disease. We'll continue with his usual pulmonary medications. Pain control for skeletal chest wall pain. Increase his activity as tolerated. We'll continue to follow. I, the cosigning physician, performed a history & physical examination of the patient. Lungs sounds lateral end expiratory wheeze, diminished. Maintaining good O2 saturations in the 90s on 4 L/m per nasal cannula. I discussed the assessment and plan of care with my nurse practitioner, Ling Matthews. I attest to the above note as dictated by her.
[2018-08-08 16:25] LABS: Glucose,Whole Blood 118 mg/dL (75-99)
[2018-08-08] MEDS: ALPRAZolam 0.25 MG TAB PO PRN (20:42)
[2018-08-08 20:46] LABS: Glucose,Whole Blood 113 mg/dL (75-99)
--- NOTE | 2018-08-08 21:03 | PN ---
PROGRESS NOTE DATE OF SERVICE: 08/08/18. PRESENTING COMPLAINT: Tired. INTERVAL HISTORY: This patient presented with acute COPD exacerbation and non ST elevation myocardial infarction. Did undergo a cardiac catheterization today. No significant disease was found. The patient's breathing is better. Lying in bed. is present. REVIEW OF SYSTEMS: Done for constitutional, cardiovascular, GI, pulmonary; relevant findings as above. CURRENT MEDICATIONS: Reviewed and include bronchodilators, IV Solu-Medrol, IV fluids. EXAMINATION: Temperature 98.1, pulse 84, respiratory 18, blood pressure 110/65, pulse ox 90% on 4 L. GENERAL APPEARANCE: Lying in bed, more restful. EYES: Pupils equal. Conjunctivae pale. HEENT: External appearance of nose and ears normal. Oral cavity normal. NECK: JVD not raised. Mass not palpable. RESPIRATORY: Effort increased. Lungs: Decreased breath sounds. Prolonged on expiration. CARDIOVASCULAR: Heart sounds irregular, no edema. ABDOMEN: Soft, nontender. Liver and spleen not palpable. PSYCHIATRY: Alert and oriented x3. Slightly anxious. DERMATOLOGICAL: Some bruising is present. INVESTIGATIONS: Formal cardiac catheterization not available. White count 11.4. Theophylline 11.2. ASSESSMENT: 1. Acute non-ST elevation myocardial infarction with cardiac catheterization revealing nonsignificant disease. 2. Acute chronic obstructive pulmonary disease exacerbation in an ex-smoker. 3. Chronic hypoxic respiratory failure on 4 L oxygen at home from underlying chronic obstructive pulmonary disease. 4. Chronic bilateral hip fracture. 5. Obstructive sleep apnea, uses CPAP machine. 6. Prostate cancer stable. 7. Ascending aortic aneurysm 4.2 cm. 8. Restless legs syndrome. 9. Acute hypoxic respiratory failure from underlying chronic obstructive pulmonary disease. 10.Anxiety not otherwise specified. 11.Acute metabolic alkalosis from volume contraction. PLAN: Care was discussed at length with the patient at the bedside and also discussed with Dr. Altman. The patient will be gently rehydrated. Will temporarily hold off the Lasix. The patient hopefully can be discharged tomorrow. MMODL / IJN: [id number] /
[2018-08-08] MEDS ORDERED: LACTULOSE 20 GM/30 ML CUP PO ONE (22:18)
[2018-08-09 05:37] LABS: Glucose,Whole Blood 114 mg/dL (75-99)
[2018-08-09 06:00] LABS: Anisocytosis Slight; Basophils % (A) 0 %; Eosinophils % (A) 0 %; HCT 43.9 % (39.0-53.0); HGB 13.8 gm/dL (13.0-17.5); Hypochromasia Slight; Lymphocytes # (A) 0.1 k/uL (1.0-4.8); Lymphocytes % (A) 1 %; MCH 30.9 pg (25.0-35.0); MCHC 31.4 g/dL (31.0-37.0); MCV 98.5 fL (80.0-100.0); Macrocytosis Slight; Mean Platelet Volume 7.2; Monocytes # (A) 0.3 k/uL (0-1.0); Monocytes % (A) 2 %; Neutrophils # (A) 12.5 k/uL (1.3-7.7); Neutrophils % (A) 96 %; Platelet Count 257 k/uL (150-450); RBC 4.46 m/uL (4.30-5.90); RDW 16.2 % (11.5-15.5)
[2018-08-09] MEDS: INSULIN ASPART 100 UNIT/ML 1 ML 10 ML VIAL SQ SCH ×2 (06:00→12:13)
[2018-08-09 06:15] LABS: Anion Gap 4 mmol/L; Blood Urea Nitrogen 24 mg/dL (9-20); Calcium 8.7 mg/dL (8.4-10.2); Carbon Dioxide 30 mmol/L (22-30); Chloride 106 mmol/L (98-107); Glucose 126 mg/dL (74-99); Potassium 3.6 mmol/L (3.5-5.1); Sodium 140 mmol/L (137-145)
[2018-08-09] MEDS: ALBUTEROL NEBULIZED 2.5 MG/3 ML INHALATION SCH ×3 (08:50→15:47)
[2018-08-09 09:09] VITALS: TEMP 98.3
[2018-08-09] MEDS: METOPROLOL TARTRATE 25 MG TAB PO SCH (09:10)
[2018-08-09] MEDS: THEOPHYLLINE 24 HOUR 400 MG CAP.ER.24H PO SCH (09:10)
[2018-08-09] MEDS: MONTELUKAST 10 MG TAB PO SCH (09:10)
[2018-08-09] MEDS: methylPREDNISolone SOD SUCCI 125 MG/2 ML VIAL IV SCH (09:10)
[2018-08-09] MEDS: ALPRAZolam 0.25 MG TAB PO PRN (09:10)
[2018-08-09] MEDS: FAMOTIDINE 20 MG TAB PO SCH (09:10)
[2018-08-09 11:28] VITALS: BP 129/85; RESP 16
[2018-08-09 11:32] VITALS: PULSE 88
[2018-08-09 12:06] LABS: Glucose,Whole Blood 120 mg/dL (75-99)
[2018-08-09] MEDS: SODIUM CHLORIDE 0.9% 1,000 ML IV SCH (12:13)
--- NOTE | 2018-08-09 13:25 | P.PN ---
Subjective Progress Note Date: 08/09/18 Principal diagnosis: Chest pain, COPD exacerbation A pleasant 70-year-old male patient is well-known to me. The patient has chronic advanced COPD oxygen dependent at 4 L about 2 by nasal cannula. The patient was in the hospital last month after he had a fall possibly related to her syncope and he had left-sided rib cage/rib fracture. He was Hospital as for worsening shortness of breath and pain control. During his hospital stay the patient required aggressive pulmonary toileting, management of his COPD exacerbation and he was also given narcotic medication to control his pain which at times was causing significant diminishment in his level of consciousness and optimization. Upon discharge him a he was given oxycodone 15 mg by mouth to be taken as needed basis. He is a was under good control. Since he got released from the hospital, the patient was seen once in the office and he was doing well and he was stable and he came back to the emergency department complaining of pain across the anterior part of the chest radiating to the back and some progressive dyspnea. He came into the emergency department for further evaluation. The patient was seen by cardiology. Echo of the heart was done and it showed impaired LV function with an ejection fraction of 40-45% and there was evidence of anteroseptal hypokinesia. EKG showed Q waves in the anteroseptal leads and ST segment changes in the anterior leads considering ischemia. He is less cardiac Ablation was in 2016 and the patient had nonocclusive disease back then. No pleurisy. No hemoptysis. Chest x-ray and a CAT scan of the chest was reviewed and is consistent with COPD. No evidence of any pulmonary embolism and that is no evidence of pneumonia. There is emphysema and pulmonary fibrosis and atelectatic changes in lung bases bilaterally. There is also mild pleural thickening at the lung bases. No evidence of any pulmonary embolism. Mild aneurysmal dilatation of the ascending aorta and compression fracture of the thoracic spine were impaired to his last evaluation. There was compression deformity of T11 and T7 vertebral bodies up to 50%. There is also an ascending aortic aneurysm measuring 4.2 cm in size. No evidence of any new sign lymphadenopathy. No leukocytosis. Rest of the blood work is all within normal limits. Troponin was elevated considering an acute non-ST segment elevation myocardial infarction. The patient is seen again today 08/08/2018 in follow-up on the selective care unit. He is currently resting quite comfortably in bed. He is awake and alert in no acute distress. He did undergo cardiac catheterization today which revealed mild opacification of the LAD and the diagonal with mild ostial stenosis of the diagonal. The rest of the coronary system was free of occlusive disease. He currently denies any chest pain. He's been maintaining O2 saturations in the low 90s on 4 L/m per nasal cannula. He has been afebrile. Hemodynamically stable. The patient is seen again today 08/09/2018 in follow-up on the selective care unit. He is currently resting quite comfortably in bed. Actually laying flat without any respiratory distress. He is maintaining good O2 saturations in the 90s on 4 L/m per nasal cannula. He's been afebrile. Hemodynamically stable. Blood cultures reveal no growth. White count 13.0. Hemoglobin 13.8. Creatinine 0.82. His only complaint today is that of constipation. Objective - Vital Signs Vital signs: Vital Signs Temp 98.3 F 08/09/18 08:30 Pulse 88 08/09/18 11:40 Resp 16 08/09/18 11:20 BP 129/85 08/09/18 11:20 Pulse Ox 93 L 08/09/18 11:20 Intake & Output 08/08/18 08/09/18 08/09/18 18:59 06:59 18:59 Intake Total 410 1025 Output Total 600 Balance -190 1025 Weight 69.5 kg Intake: IV 50 20 Invasive Line 1 20 Intake, IV Titration 525 Amount Sodium Chloride 0.9% 1, 525 000 ml @ 75 mls/hr IV . [id number] [facility] Rx#:[id number] Oral 360 480 Output: Urine 600 Other: Voiding Method Toilet Toilet Urinal Urinal # Voids 1 1 # Bowel Movements 0 - Exam Gen. appearance, comfortable, no acute distress distress. Not using excessive muscle breathing. Head exam was generally normal. There was no scleral icterus or corneal arcus. Mucous membranes were moist. Neck was supple and without jugular venous distension, thyromegaly, or carotid bruits. Carotids were easily palpable bilaterally. There was no adenopathy. Lungs sounds are diminished. The patient has a barrel chest and some thoracic kyphosis. Diminished breath sounds throughout the lung his bilaterally along with scattered expiratory wheezes upon forceful expiratory maneuvers. Cardiac exam revealed the PMI to be normally situated and sized. The rhythm was regular and no extrasystoles were noted during several minutes of auscultation. The first and second heart sounds were normal and physiologic splitting of the second heart sound was noted. There were no murmurs, rubs, clicks, or gallops. Abdominal exam revealed normal bowel sounds. The abdomen was soft, non-tender, and without masses, organomegaly, or appreciable enlargement of the abdominal aorta. Examination of the extremities revealed easily palpable radial, femoral and pedal pulses. There was no cyanosis, clubbing or edema. Examination of the skin revealed no evidence of significant rashes, suspicious appearing nevi or other concerning lesions. Neurologically awake and alert and is no focal neurological deficits. - Labs CBC & Chem 7: 08/09/18 05:42 08/09/18 05:42 Labs: Abnormal Lab Results - Last 24 Hours (Table) 08/08/18 08/08/18 08/09/18 Range/Units 16:19 20:44 05:35 WBC (3.8-10.6) k/uL RDW (11.5-15.5) % Neutrophils # (1.3-7.7) k/uL Lymphocytes # (1.0-4.8) k/uL BUN (9-20) mg/dL Glucose (74-99) mg/dL POC Glucose (mg/dL) 118 H 113 H 114 H (75-99) mg/dL 08/09/18 08/09/18 08/09/18 Range/Units 05:42 05:42 12:04 WBC 13.0 H (3.8-10.6) k/uL RDW 16.2 H (11.5-15.5) % Neutrophils # 12.5 H (1.3-7.7) k/uL Lymphocytes # 0.1 L (1.0-4.8) k/uL BUN 24 H (9-20) mg/dL Glucose 126 H (74-99) mg/dL POC Glucose (mg/dL) 120 H (75-99) mg/dL Microbiology - Last 24 Hours (Table) 08/06/18 17:30 Blood Culture - Preliminary Blood No Growth after 48 hours Assessment and Plan Assessment: Assessment 1 acute chest pain with abnormal echocardiogram showing impaired EF of around 40 -45% and segmental wall motion abnormalities involving the anteroseptal wall and positive troponin leak. The patient has nonocclusive coronary artery disease based on a previous cardiac catheterization. Repeat cardiac catheterization revealed nonocclusive coronary artery disease. 2 chest pain secondary to above 3 advanced COPD, and the patient has an FEV1 of 33% of predicted 4 chronic hypoxic respiratory failure and the patient is demented on oxygen 4 L per minute nasal cannula 5 multiple left-sided rib fractures following a fall 6 obstructive sleep apnea 7 ascending aortic aneurysm measuring 4.2 cm in size 8 prostate cancer 9 compressive fraction of the T7 and T11 spine with 50% loss in height Plan The patient was seen and evaluated by Dr. Altman. He is stable from the pulmonary standpoint and could be discharged home once cleared medically. We' ll follow-up in the office. I, the cosigning physician, performed a history & physical examination of the patient. Lungs sounds lateral end expiratory wheeze, diminished. Maintaining good O2 saturations in the 90s on 4 L/m per nasal cannula. I discussed the assessment and plan of care with my nurse practitioner, Ling Matthews. I attest to the above note as dictated by her.
[2018-08-09] MEDS ORDERED: POLYETHYLENE GLYCOL 3350 17 GM POWD.PACK PO SCH (21:00)
--- NOTE | 2018-08-10 08:55 | DS ---
DISCHARGE SUMMARY DATE OF ADMISSION: 08/06/2018 DATE OF DISCHARGE: 08/09/2018 FINAL DIAGNOSES: 1. Acute non-ST elevation myocardial infarction with cardiac catheterization showing nonsignificant coronary artery disease. 2. Acute chronic obstructive pulmonary disease exacerbation in an ex-smoker. 3. Chronic hypoxic respiratory failure on 4 L oxygen at home from underlying chronic obstructive pulmonary disease. 4. Chronic bilateral rib fracture. 5. Obstructive sleep apnea, uses CPAP machine. 6. Prostate cancer, stable. 7. Ascending aortic aneurysm 4.9 cm. 8. Restless legs syndrome. 9. Acute hypoxic respiratory failure from underlying chronic obstructive pulmonary disease on admission. 10.Anxiety, not otherwise specified. 11.Acute metabolic alkalosis from volume contraction. CONSULTATION: Dr. Diaz from Cardiology, from pulmonary. HOSPITAL COURSE: This patient presented with shortness of breath, some chest discomfort. Troponins were up, labeled as non-Q-wave HI did undergo cardiac catheterization by Dr. Diaz, was not found to have any significant amount of disease. Classified as mild. Risk factor modifications advised. Care was discussed about including his pain management, pulmonary with the patient in detail. Questions were answered. The patient is doing relatively better by the time of discharge. On examination, afebrile, pulse 94, respiration 20, blood pressure 128/72, pulse ox 95% on 4 L. LUNGS: Decreased breath sounds. CARDIOVASCULAR: First and second sounds normal. Slight anxiety. LABS: White count 11.4, hemoglobin 13.3. The patient was alkalotic, was given some IV fluids. A 2-D echocardiogram showed EF of 45% to 50%. DISCHARGE MEDICATIONS: 1. Singulair 10 mg p.o. daily. 2. Requip 1 mg p.o. q.h.s. 3. Pepcid 20 mg p.o. daily. 4. Theophylline 200 mg p.o. b.i.d. 5. Oxycodone 15 mg q.6 p.r.n. 6. Xanax 0.25 p.o. t.i.d. p.r.n. 7. Aspirin 81 mg a day. 8. Lipitor 20 mg p.o. daily. 9. Lasix 40 mg p.o. Mondays and . 10.DuoNeb q.i.d. 11.Lopressor 12.5 p.o. b.i.d. 12.MiraLAX 17 grams p.o. q.h.s. 13.Prednisone taper then maintain at 10 mg a day. Discontinue Claritin and azithromycin. Follow up with Dr. Sanchez in 3 days. Follow up with Dr. Diaz on 08/17/2018. Follow up with Dr. Altman on 08/23/2018. Discussion and discharge planning more than 35 minutes. MMODL / IJN: [id number] /
--- NOTE | 2018-08-13 11:51 | CDI ---
Last Revision, September 2017 Documentation Clarification Form Date: 08/13/18 From: Jenni Tai Alyssa Monique, Strategic Sourcing Manager Hours-8:30 am & 5 pm M-F Admit Date: 08/06/2018 8:50:00 PM Patient Name: Randy Guzman Visit Number: [id number] Discharge Date: 08/09/18 ATTENTION: The Clinical Documentation Specialists (CDI) and [facility] Coding Staff appreciate your assistance in clarifying documentation. Please respond to the clarification below the line at the bottom and electronically sign. The CDI & [facility] Coding staff will review the response and follow-up if needed. Please note: Queries are made part of the Legal Health Record. If you have any questions, please contact the author of this message via ITS. Duran Daugherty MD History/Risk Factors: Non-ST VT, A/C hypoxic respiratory failure, HTN w CHF VS/Pulse OX: P-118, R-18-21, BP 111/76, O2 sat - 88 BNP: Echocardiogram Results:left ventricular systolic function is mildly impaired w an EF between 45-50% Chest X Ray: no significant change Treatment: 08/06 IV Lasix 20 mg once, 08/07 oral Lasix 40 mg daily In your professional opinion, can you please clarify the acuity and type of CHF if known? Systolic Heart Failure: Diastolic Heart Failure: Systolic & Diastolic Heart Failure: Acute Chronic Acute on Chronic Heart Failure Unable to Determine Other, please specify Please continue to document in your progress notes and discharge summary in order to capture severity of illness and risk of mortality. Include clinical findings that support your diagnosis. NO CHF MTDD
== END 2018-08-09 15:36 | disposition home health service (06) | DRG 280 ==
LOC: EC 16:46 → 3SCARD 20:50
PROVIDERS: ADMIT Hospitalist; ATTEND Hospitalist
PROC: B211YZZ Fluoroscopy of Multiple Coronary Arteries using Other Contrast (ICD-10-PCS; 2018-08-08)
PROC: B215YZZ Fluoroscopy of Left Heart using Other Contrast (ICD-10-PCS; 2018-08-08)
PROC: 4A023N7 Measurement of Cardiac Sampling and Pressure, Left Heart, Percutaneous Approach (ICD-10-PCS; principal; 2018-08-08 08:00)
DX: I21.4 Non-ST elevation (NSTEMI) myocardial infarction (principal); J96.21 Acute and chronic respiratory failure with hypoxia; I42.0 Dilated cardiomyopathy; E87.4 Mixed disorder of acid-base balance; J98.11 Atelectasis; I11.0 Hypertensive heart disease with heart failure; I71.2 Thoracic aortic aneurysm, without rupture; I25.110 Atherosclerotic heart disease of native coronary artery with unstable angina pectoris; J84.10 Pulmonary fibrosis, unspecified; J43.9 Emphysema, unspecified; F03.90 Unspecified dementia, unspecified severity, without behavioral disturbance, psychotic disturbance, mood disturbance, and anxiety; C61 Malignant neoplasm of prostate; K59.00 Constipation, unspecified; G47.33 Obstructive sleep apnea (adult) (pediatric); G25.81 Restless legs syndrome; F41.9 Anxiety disorder, unspecified; M19.91 Primary osteoarthritis, unspecified site; Z99.81 Dependence on supplemental oxygen; Z79.51 Long term (current) use of inhaled steroids; Z79.899 Other long term (current) drug therapy; Z87.01 Personal history of pneumonia (recurrent); Z87.820 Personal history of traumatic brain injury; Z87.891 Personal history of nicotine dependence; Z99.89 Dependence on other enabling machines and devices; Z98.42 Cataract extraction status, left eye; Z98.41 Cataract extraction status, right eye; Z88.8 Allergy status to other drugs, medicaments and biological substances; Z88.1 Allergy status to other antibiotic agents; Z91.011 Allergy to milk products; Z82.5 Family history of asthma and other chronic lower respiratory diseases; Z82.49 Family history of ischemic heart disease and other diseases of the circulatory system; Z83.3 Family history of diabetes mellitus; Z80.0 Family history of malignant neoplasm of digestive organs; Z83.2 Family history of diseases of the blood and blood-forming organs and certain disorders involving the immune mechanism; S22.43XD Multiple fractures of ribs, bilateral, subsequent encounter for fracture with routine healing
CPT/HCPCS: 36415; 36600; 71046; 71275; 80048; 80053; 80198; 82550; 82553; 82805; 83605; 83735; 83880; 84484; 85025; 85610; 85730; 87040; 93005; 93306; 93458; 94640; 94760; 96361; 96365; 96375; 96376; 99291

== ENCOUNTER 2018-08-10 09:37 | Emergency (ER) | payer MEDICARE, BC ==
[2018-08-10] MEDS ORDERED: MORPHINE SULFATE 4 MG/ML SYRINGE IV STA (10:10)
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
[2018-08-10 10:59] LABS: Basophils % (A) 0 %; Eosinophils % (A) 0 %; HCT 48.1 % (39.0-53.0); HGB 15.2 gm/dL (13.0-17.5); Hypochromasia Moderate; Lymphocytes # (A) 0.2 k/uL (1.0-4.8); Lymphocytes % (A) 2 %; MCH 31.1 pg (25.0-35.0); MCHC 31.6 g/dL (31.0-37.0); MCV 98.4 fL (80.0-100.0); Macrocytosis Slight; Mean Platelet Volume 7.3; Monocytes # (A) 0.4 k/uL (0-1.0); Monocytes % (A) 3 %; Neutrophils # (A) 12.3 k/uL (1.3-7.7); Neutrophils % (A) 94 %; Platelet Count 241 k/uL (150-450); RBC 4.89 m/uL (4.30-5.90); RDW 15.7 % (11.5-15.5)
--- NOTE | 2018-08-10 11:01 | XR ---
EXAMINATION TYPE: XR KUB DATE OF EXAM: 08/10/2018 COMPARISON: NONE HISTORY: Pain TECHNIQUE: Single supine KUB image of the abdomen is obtained FINDINGS: Small bowel demonstrates no evidence for dilatation or air fluid levels. Gas and fecal material is seen in non-distended colon. No convincing evidence for pneumoperitoneum. No unusual calcifications. The lung bases are clear. The osseous structures are intact. IMPRESSION: 1. Overall nonspecific bowel gas pattern.
[2018-08-10] MEDS ORDERED: NA PHOS,M-B/NA PHOS,DI-BA 133 ML ENEMA RECTAL STA (11:06)
[2018-08-10] MEDS ORDERED: MAGNESIUM CITRATE 296 ML BOTTLE PO ONE (11:06)
[2018-08-10 11:11] LABS: ALT 24 U/L (21-72); AST 20 U/L (17-59); Albumin 3.4 g/dL (3.5-5.0); Alkaline Phosphatase 90 U/L (38-126); Anion Gap 7 mmol/L; Blood Urea Nitrogen 20 mg/dL (9-20); Calcium 9.1 mg/dL (8.4-10.2); Carbon Dioxide 29 mmol/L (22-30); Chloride 103 mmol/L (98-107); Glucose 116 mg/dL (74-99); Potassium 3.5 mmol/L (3.5-5.1); Sodium 139 mmol/L (137-145); Total Bilirubin 1.1 mg/dL (0.2-1.3); Total Protein 5.8 g/dL (6.3-8.2)
[2018-08-10] MEDS ORDERED: methylPREDNISolone SOD SUCCI 125 MG/2 ML VIAL IV STA (11:31)
[2018-08-10] MEDS ORDERED: diphenhydrAMINE 50 MG/ML 1 ML VIAL IVP STA (11:31)
[2018-08-10] MEDS ORDERED: FAMOTIDINE 20 MG/2 ML VIAL IV STA (11:31)
--- NOTE | 2018-08-10 13:27 | CT ---
EXAMINATION TYPE: CT abdomen pelvis w con DATE OF EXAM: 08/10/2018 COMPARISON: None INDICATION: Left lower quadrant pain, heart catheterization 2 days prior DLP: 683.2 mGycm, Automated exposure control for dose reduction was used. CONTRAST: 100 mL of Isovue 300. Study performed without Oral Contrast TECHNIQUE: Axial images were obtained from above the diaphragm to the pubic rami in the axial plane a t 5 mm thick sections. Reconstructed images are reviewed on the computer in the coronal plane. FINDINGS: Limited CT sections are obtained the lung bases. Minimal lung opacities are likely related to some d ependent atelectasis. There is an unusual hypodense area anterior to the vertebral column adjacent to the esophagus. This w ould be an unusual location for a loculated pneumothorax. This is at the edge the [id number]. This may be a bleb. Consider additional evaluation with CT chest for evaluation.. CT ABDOMEN: Liver: There is mild fatty infiltration of the liver. No discrete masses are evident. There may be a cyst within the medial right lobe liver measuring 0.6 cm. Additional subcentimeter cyst measuring 0.4 cm in the anterior right lobe liver. Spleen: Normal Pancreas: Normal Adrenal glands: The adrenal glands are normal. Gallbladder: Normal Kidneys: No masses are evident. No hydronephrosis is present. 1.0 cm posterior lateral right pole c yst may be present. Delayed images were obtained through the kidneys, which remain unremarkable. Aorta: Vascular calcification is within the aorta. Inferior vena cava: Normal. CT PELVIS: There is a large fecal bolus at the level the rectum. Correlate for fecal impaction. Mild fecal reten tion is within the ascending colon. Appendix: Not identified. No suspicious tubular structures or inflammatory changes evident. Urinary bladder: Normal. Genitourinary structures: Prostate is unremarkable Osseous structures: No suspicious lytic or sclerotic lesions. IMPRESSIONS: 1. Unusual bleb is likely present anterior to the spinal column within the retrocardiac region. Give n the patient's recent history of catheterization, consider CT chest to confirm no loculated pneumoth orax is evident. 2. Large fecal bolus at the level the rectum. 3. Suspected probable hepatic cysts and right renal cyst.
[2018-08-10] MEDS ORDERED: MORPHINE SULFATE 4 MG/ML SYRINGE IVP STA (14:22)
--- NOTE | 2018-08-10 15:01 | CT ---
EXAMINATION TYPE: CT chest wo con DATE OF EXAM: 08/10/2018 COMPARISON: 08/06/2018 HISTORY: SOB CT DLP: 233.7 mGycm, Automated exposure control for dose reduction was used. CONTRAST: Performed injected with 0 mL of Isovue 300. TECHNIQUE: Axial images were obtained at 5 mm thick sections. Reconstructed images are reviewed on [employer] computer in the coronal plane. FINDINGS: Portion of the thyroid visualized is normal. Emphysematous changes are present. Some thickening and increased lung markings are adjacent to the ma madhuri fissure on the left. This may be some atelectasis displacing the fissure. Small area of pneumonit is may be in the periphery of the left midlung. Series 201 image 34 lung windows. Some pneumonitis ch anges in the posterior lateral right lung base. Previous pleural effusion on the right is resolved. No enlarged mediastinal or hilar adenopathy is evident. The ascending aorta diameter at the level o f the main pulmonary artery is 4.0 cm. The main pulmonary artery diameter at the bifurcation is 3.2 cm. Coronary artery calcifications present. Limited CT sections are obtained through the upper abdomen. Multiple dense calcifications are within the upper poles of the bilateral kidneys. IMPRESSIONS: 1. COPD. 2. Few areas of pneumonitis change may be some atelectasis. Recommend follow-up CT chest in 6 months.
[2018-08-10 15:58] VITALS: BP 152/106; PULSE 97; RESP 18; TEMP 97.9
== END 2018-08-10 15:57 | disposition home or self-care (01) ==
LOC: EC 09:37
DX: K59.00 Constipation, unspecified (principal); R10.30 Lower abdominal pain, unspecified; I25.2 Old myocardial infarction; J44.1 Chronic obstructive pulmonary disease with (acute) exacerbation; I25.10 Atherosclerotic heart disease of native coronary artery without angina pectoris; G47.33 Obstructive sleep apnea (adult) (pediatric); Z99.89 Dependence on other enabling machines and devices; J96.91 Respiratory failure, unspecified with hypoxia; Z99.81 Dependence on supplemental oxygen; Z85.46 Personal history of malignant neoplasm of prostate; Z79.52 Long term (current) use of systemic steroids; Z79.899 Other long term (current) drug therapy; Z88.1 Allergy status to other antibiotic agents; Z91.011 Allergy to milk products; Z95.818 Presence of other cardiac implants and grafts
CPT/HCPCS: 36415; 80053; 85025; 74018; 71250; 74177; 99285; 96374; 96375 ×3; 96376; J2270; J1200; J2930; Q9967

== ENCOUNTER → 2018-09-21 | Outpatient (CLI) | payer MEDICARE, BC | LOC: LABWHC1 15:04 | PROVIDERS: ATTEND Radiology Radiation Oncology | DX: C61 Malignant neoplasm of prostate (principal) | CPT/HCPCS: 36415; 84153 ==

== ENCOUNTER → 2018-10-11 | Outpatient (CLI) | payer MEDICARE, BC ==
--- NOTE | 2018-10-11 09:06 | US ---
EXAMINATION TYPE: US abdomen complete DATE OF EXAM: 10/11/2018 COMPARISON: CT, US CLINICAL HISTORY: R10.13 Epigastric pain and Paraumbilical pain x 2 months associated with food and w ater; reflus, and symptoms noted since being on several courses of antibiotics per patient EXAM MEASUREMENTS: Liver Length: 16.8 cm Gallbladder Wall: 0.1 cm CBD: 0.4 cm Spleen: 7.0 x 7.6 x 3.5 cm Right Kidney: 10.4 x 5.8 x 4.1 cm Left Kidney: 5.7 x 5.1 x 5.7 cm Pancreas: Tail obscured by overlying bowel gas; prominent GDA noted in pancreas Liver: mildly heterogeneous appearance to liver; inferior left lobe simple cyst noted = 0.9 x 0.9 x 0.7cm Gallbladder: wnl Evidence for sonographic Pearl's sign: no CBD: wnl Spleen: wnl Right Kidney: inferior, simple appearing cortical cyst = 0.7 x 0.9 x 0.6cm. Left Kidney: No hydronephrosis or masses seen Upper IVC: wnl Abd Aorta: ectatic appearance to lumen with atherosclerotic wall changes imaged and noted in bilater al BJORN; upper wall size = 3.2cm A/P. IMPRESSION: 1. Mild fatty hepatic infiltration. Simple hepatic cyst. 2. Simple right renal cyst. 3. Mild aneurysmal dilatation of the aorta.
== END | disposition home or self-care (01) ==
LOC: RADUSWWP 07:53
PROVIDERS: ATTEND Family Medicine
DX: N28.1 Cyst of kidney, acquired (principal); K76.89 Other specified diseases of liver; I71.9 Aortic aneurysm of unspecified site, without rupture
CPT/HCPCS: 76700